=== PATIENT | male | born 1950 | race Caucasian/White ===

== ENCOUNTER 2016-11-10 17:53 | Inpatient (IN) | payer OTHER ==
[~2016-11-10] VITALS: Ht 172.7 cm; Wt 104.3 kg
[2016-11-10] MEDS ORDERED: IPRATRPIUM/ALBUTEROL 0.5/2.5MG 3 ML NEBU. NEB ONE (18:15)
[2016-11-10] MEDS ORDERED: methylPREDNISolone SOD SUCC PF 125 MG/2 ML VIAL. IV ONE (18:15)
[2016-11-10 18:22] LABS: BASO % 0 % (0-3); EOS % 3 % (0-3); HEMATOCRIT 49.5 % (39.0-53.0); HEMOGLOBIN 15.6 g/dL (13.0-17.5); LYMPH # 2.3 x10^3/uL (1.0-4.8); LYMPH % 19 % (24-48); MEAN CORPUSCULAR HEMOGLOBIN 26 pg (25-35); MEAN CORPUSCULAR HGB CONC 32 g/dL (31-37); MEAN CORPUSCULAR VOLUME 84 fL (79-100); MONO % 8 % (0-9); NEUT % 69 % (31-73); PLATELET COUNT 218 x10^3/uL (140-400); RED BLOOD COUNT 5.91 x10^6/uL (4.30-5.70); RED CELL DISTRIBUTION WIDTH 15.3 % (11.5-14.5)
[2016-11-10 18:30] LABS: CALCIUM 8.9 mg/dL (8.5-10.1); CREATININE 1.2 mg/dL (0.7-1.3); GFR 60.6; POTASSIUM 4.8 mmol/L (3.5-5.1)
[2016-11-10 18:36] LABS: ALBUMIN 3.9 g/dL (3.4-5.0); ALBUMIN/GLOBULIN RATIO 0.9 (1.0-1.7); TOTAL BILIRUBIN 0.5 mg/dL (0.2-1.0); TOTAL PROTEIN 8.4 g/dL (6.4-8.2)
[2016-11-10 18:55] LABS: OBC FLU VALID
[2016-11-10] MEDS ORDERED: ASPIRIN 325 MG TABLET PO ONE (19:15)
[2016-11-10] MEDS ORDERED: FUROSEMIDE 20 MG/2 ML VIAL IVP ONE (19:15)
[2016-11-10] MEDS ORDERED: FENTANYL PF 100 MCG/2 ML VIAL. IV PRN (19:15)
[2016-11-10] MEDS ORDERED: NITROGLYCERIN SUBLINGUAL 0.4 MG BOTTLE OF 25. SL PRN ×2 (19:15→20:30)
[2016-11-10] MEDS ORDERED: ONDANSETRON PF 4 MG/2 ML VIAL. IV PRN (20:30)
[2016-11-10] MEDS ORDERED: DEXTROSE 50% 25 GM / 50ML DISP.SYRIN. IV PRN (20:30)
[2016-11-10] MEDS ORDERED: ACETAMINOPHEN 325 MG TABLET. PO PRN (20:30)
[2016-11-10] MEDS ORDERED: MORPHINE SULFATE 4 MG/ML DISP.SYRIN. IV PRN (20:30)
[2016-11-10 20:34] LABS: HCO3 ABG 27 mmol/L (21-28); PCO2 ABG 48 mmHg (35-46); PH ABG 7.36 (7.35-7.45); PO2 ABG 135 mmHg (65-108); SAT O2 ABG 98 % (92-99)
[2016-11-10] MEDS ORDERED: LEVOFLOXACIN PER PHARMACY MC PRN (20:45)
[2016-11-10] MEDS: IPRATRPIUM/ALBUTEROL 0.5/2.5MG 3 ML NEBU. NEB SCH (21:16)
--- NOTE | 2016-11-10 22:01 | ED.ADGEN ---
Past Medical History Past Medical History: Asthma, COPD, Diabetes-Type II, High Cholesterol, Hypertension Past Surgical History: Other Additional Past Surgical Histo: Right shoulder Alcohol Use: None Drug Use: None Adult General Chief Complaint Chief Complaint: SHORTNESS OF BREATH HPI HPI Patient is a 66 year old man, history of COPD, type 2 diabetes mellitus, hypertension, who presents to the emergency department in respiratory failure via EMS. Per EMS report, patient with oxygen saturations in the 70s upon arrival , patient was placed on a nonrebreather, and received a nebulizer treatment en route to the ED, with improvement of his oxygen saturation, although his work of breathing remains significantly increased. Patient states that he was seen his primary care provider's office this morning, and received a prescription for steroids. Oxygen saturation had been in the 90s at the time, he states that he has worsening symptoms that were triggered by the cold weather, and began feeling progressively worse throughout the afternoon into the evening. Patient is not previously required intubation or BiPAP usage. No cough or rhinorrhea. He denies any chest pain, any nausea or vomiting, any swelling extremities, history of DVT or PE, any recent travel or surgery, any weakness numbness or tingling, any drugs alcohol or cigarettes. Patient's oxygen saturation is ED 81 % on 10 L nasal cannula upon arrival to the emergency department when DuoNeb completed, transitioned to facemask and then to BiPAP emergently in the ED. Review of Systems Review of Systems Constitutional: Denies fever or chills. [] Eyes: Denies change in visual acuity. [] HENT: Denies nasal congestion or sore throat. [] Respiratory: Nonproductive cough, shortness of breath worsening over the past day. Cardiovascular: Denies chest pain or edema. [] GI: Denies abdominal pain, nausea, vomiting, bloody stools or diarrhea. [] : Denies dysuria. [] Musculoskeletal: Denies back pain or joint pain. [] Integument: Denies rash. [] Neurologic: Denies headache, focal weakness or sensory changes. [] Endocrine: Denies polyuria or polydipsia. [] Lymphatic: Denies swollen glands. [] Psychiatric: Denies depression or anxiety. [] Current Medications Current Medications Current Medications Medications (Trade) Dose Ordered Sig/Jenny Start Time Stop Time Status Last Admin Dose Admin Albuterol/ Ipratropium (Duoneb) 3 ml 1X ONCE 11/10/16 18:15 11/10/16 18:16 DC 11/10/16 18:13 3 ML Methylprednisolone Sodium Succinate (Solu-Medrol 125mg Vial) 125 mg 1X ONCE 11/10/16 18:15 11/10/16 18:16 DC 11/10/16 18:23 125 MG Allergies Allergies Allergies Coded Allergies Type Severity Reaction Last Updated Verified No Known Drug Allergies 06/01/14 No Physical Exam Physical Exam Constitutional: Well developed, well nourished, in severe respiratory distress, with impending respiratory failure. HENT: Normocephalic, atraumatic, bilateral external ears normal, oropharynx moist, no oral exudates, nose normal. [] Eyes: PERRLA, EOMI, conjunctiva normal, no discharge. [] Neck: Normal range of motion, no tenderness, supple, no stridor. [] Cardiovascular: Tachycardic, S1, S2, soft heart sounds, no rubs or gallops. Lungs & Thorax: Patient with very poor air movement, a few mild expiratory wheezes identified. In pending respiratory failure. Abdomen: Bowel sounds normal, soft, obese, no rebound, rigidity, no guarding no tenderness, no masses, no pulsatile masses. [] Skin: Warm, dry, no erythema, no rash. [] Back: No tenderness, no CVA tenderness. [] Extremities: No tenderness, no cyanosis, no clubbing, ROM intact, no edema. [ Negative Homans sign.] Neurologic: Alert and oriented X 3, normal motor function, normal sensory function, no focal deficits noted. [] Psychologic: Patient anxious, judgement normal, mood normal. [] Current Patient Data Vital Signs Vital Signs Date Time Temp Pulse Resp B/P Pulse Ox O2 Delivery O2 Flow Rate FiO2 11/10/16 19:09 78 162/71 100 BiPAP/CPAP 11/10/16 17:53 26 Lab Values Laboratory Tests Test 11/10/16 18:00 11/10/16 18:20 White Blood Count 12.0x10^3/uL (4.0-11.0) H Red Blood Count 5.91x10^6/uL (4.30-5.70) H Hemoglobin 15.6g/dL (13.0-17.5) Hematocrit 49.5% (39.0-53.0) Mean Corpuscular Volume 84fL (79-100) Mean Corpuscular Hemoglobin 26pg (25-35) Mean Corpuscular Hemoglobin Concent 32g/dL (31-37) Red Cell Distribution Width 15.3% (11.5-14.5) H Platelet Count 218x10^3/uL (140-400) Neutrophils (%) (Auto) 69% (31-73) Lymphocytes (%) (Auto) 19% (24-48) L Monocytes (%) (Auto) 8% (0-9) Eosinophils (%) (Auto) 3% (0-3) Basophils (%) (Auto) 0% (0-3) Neutrophils # (Auto) 8.4x10^3uL (1.8-7.7) H Lymphocytes # (Auto) 2.3x10^3/uL (1.0-4.8) Monocytes # (Auto) 0.9x10^3/uL (0.0-1.1) Eosinophils # (Auto) 0.4x10^3/uL (0.0-0.7) Basophils # (Auto) 0.0x10^3/uL (0.0-0.2) Sodium Level 145mmol/L (136-145) Potassium Level 4.8mmol/L (3.5-5.1) Chloride Level 106mmol/L (98-107) Carbon Dioxide Level 32mmol/L (21-32) Anion Gap 7 (6-14) Blood Urea Nitrogen 19mg/dL (8-26) Creatinine 1.2mg/dL (0.7-1.3) Estimated GFR (Cockcroft-Gault) 60.6 BUN/Creatinine Ratio 16 (6-20) Glucose Level 142mg/dL (70-99) H Calcium Level 8.9mg/dL (8.5-10.1) Total Bilirubin 0.5mg/dL (0.2-1.0) Aspartate Amino Transferase (AST) 38U/L (15-37) H Alanine Aminotransferase (ALT) 56U/L (16-63) Alkaline Phosphatase 89U/L (46-116) Troponin I Quantitative 0.060ng/mL (0.000-0.055) TL-Vrw-O-Type Natriuretic Peptide 1132pg/mL (0-124) H Total Protein 8.4g/dL (6.4-8.2) H Albumin 3.9g/dL (3.4-5.0) Albumin/Globulin Ratio 0.9 (1.0-1.7) L Influenza Type A Antigen Negative (NEGATIVE) Influenza Type B Antigen Negative (NEGATIVE) Laboratory Tests 11/10/16 18:00 Laboratory Tests 11/10/16 18:00 EKG EKG EC: Sinus rhythm, heart rate 96 beats minute, ECG evaluation limited secondary to baseline artifact, patient with occasional PVCs noted, left axis deviation, with contour abnormality noted in the inferior and lateral leads, abnormal ECG, QTC of 459, MD of 200, QRS of 108, does not meet STEMI criteria. As interpreted by me. EC: Sinus rhythm, occasional APCs noted, with left axis deviation, contour normality is noted in the anterior septal and lateral leads, QTc of 464 , MD 184, QRS of 116, abnormal ECG, does not meet STEMI criteria. As interpreted by me.] Radiology/Procedures Radiology/Procedures Chest x-ray: One view: Patient with evidence of cephalization and fluid in the lung fissure, consistent with congestive heart failure with pulmonary edema, patient with flattening of the diaphragms consistent with COPD. No infiltrates identified. No pneumothorax. No bony abnormalities identified. As interpreted by me. [] Course & Med Decision Making Course & Med Decision Making Pertinent Labs and Imaging studies reviewed. (See chart for details) Patient's respiratory status improved on BiPAP, patient much more comfortable, breathing with the machine. Chest x-ray concerning for congestive heart failure , COPD. Patient received DuoNeb's, steroids, and after discussion with patient, Lasix in the emergency department. Patient has no known history of congestive heart failure. Troponin also noted to be slightly elevated. ECG, laboratory and imaging studies along with history and examination reviewed with Dr. Price of cardiology, who recommends serial troponins, no indication for anticoagulation at this time, patient has already refused aspirin in the ED stating he has no chest pain, obtaining echocardiogram, as patient's presentation is consistent with a respiratory cause as opposed to an occlusive cardiac cause. We'll also repeat ECG in the morning. Did discuss this with patient, initially was declining to stay, however due to the critical nature of his illness, eventually agreed to stay, and to receive evaluation with pulmonary and cardiology, along with BiPAP and additional treatment. Patient tolerating BiPAP without issue as stated, oxygen saturations in the mid 90s, initial ABG reveals support is adequate. Findings as above discussed with Dr. Barrett, the patient's primary care provider, who confirms the patient's report that he was seen in the office this morning, and at that time had no difficulty during ambulatory trial, with adequate oxygen saturation and was discharged with prednisone. Patient was accepted to his service as a full admission to the cardiac telemetry floor, with consultation and continued evaluation as stated above, will also initiate antibiotics for additional coverage. Patient started on Levaquin without issue in the ED. Patient remained stable during his ED course with interventions as above, transfer to the floor without issue with bridge orders entered per discussion. Dragon Disclaimer Dragon Disclaimer This electronic medical record was generated, in whole or in part, using a voice recognition dictation system. Critical Care Time Critical care time was 25 minutes exclusive of procedures. Departure Impression: Primary Impression: Respiratory failure Additional Impressions: CHF (congestive heart failure) COPD (chronic obstructive pulmonary disease) Disposition: ADMITTED INPATIENT Admitting Physician: Stan Barrett Condition: IMPROVED Problem Qualifiers EBONY BROUSSARD DO Nov 10, 2016 22:01
[2016-11-10] MEDS ORDERED: VENTOLIN HFA18 GM INH (22:29)
[2016-11-10] MEDS ORDERED: INSU100I17 SQ (22:29)
[2016-11-10] MEDS ORDERED: TIOT4MIS3 IH (22:29)
[2016-11-10] MEDS ORDERED: FLUT12AE IH (22:29)
[2016-11-10] MEDS ORDERED: INSU100V13 SQ (22:29)
[2016-11-10] MEDS ORDERED: LOSA25TA4 PO (22:29)
--- NOTE | 2016-11-10 23:33 | ACF ---
Admission Forms Criteria RESPIRATORY FAILURE [facility] Clinical Indications for Admission to Inpatient Care (Place 'X' for any and all applicable criteria): Hospital admission is needed for appropriate care of the patient because of acute respiratory failure or insufficiency as indicated by ANY ONE of the following(1)(2)(3)(4)(5)(6)(7)(8): [X]I. Mechanical ventilation needed (acute invasive or noninvasive) [ ]II. Severe ventilation deficit as indicated by ANY ONE of the following (9) [ ]a) Respiratory acidosis (pH less than 7.32 and partial pressure of carbon dioxide greater than 40 mm Hg (5.3 kPa)) [ ]b) Partial pressure of carbon dioxide greater than 44 mm Hg (5.9 kPa ) (new) [ ]c) Airflow measurements less than 25% of predicted (eg, peak expiratory flow rate less than 100 L/minute) [ ]d) Forced vital capacity less than 15 mL/kg of ideal body weight, or 50% decrease in vital capacity from baseline [ ]III. Noncardiac pulmonary edema not resolving with rapid emergency treatment (8) [ ]IV. Severe respiratory distress as indicated by ANY ONE of the following: [ ]a) Severe tachypnea (respiratory rate greater than 30, greater than 45 for 6-month-old, greater than 60 for ) [ ]b) Severe hypoxemia (partial pressure of oxygen less than 50 mm Hg ( 6.7 kPa) on greater than 50% oxygen or partial pressure of oxygen to FIO2 ratio less than 200) [ ]c) Mental status deterioration from respiratory disease [ ]V. Airway obstruction or inadequate protection [A](10)(11) The original [employer] content created by [employer] has been revised. The portions of the content which have been revised are identified through the use of italic text or in bold, and [employer] has neither reviewed nor approved the modified material. All other unmodified content is copyright [employer]. Please see references footnoted in the original [employer] edition 2016 Admission Criteria Met?: Yes VERONIQUE ACOSTA Nov 10, 2016 23:33
[2016-11-10 23:35] VITALS: BP 129/54
[2016-11-11] VITALS (7 sets, daily range): BP systolic 96–144; BP diastolic 52–72
[2016-11-11] MEDS: INSULIN DETEMIR 300 UNITS/3 ML INSULN.PEN. SQ SCH ×2 (00:40→21:57)
--- NOTE | 2016-11-11 06:13 | EKG ---
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 OLD ANTEROSEPTAL WALL mi. PREMATURE VENTRICULAR CONTRACTIONS. MISSING LEAD V 4. Electronically Signed On 11-12-2016 21:39:05 CDT by Luma Moreno
--- NOTE | 2016-11-11 06:18 | EKG ---
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
[2016-11-11 06:36] LABS: BASO % 0 % (0-3); EOS % 0 % (0-3); HEMATOCRIT 46.5 % (39.0-53.0); HEMOGLOBIN 14.8 g/dL (13.0-17.5); LYMPH # 0.6 x10^3/uL (1.0-4.8); LYMPH % 5 % (24-48); MEAN CORPUSCULAR HEMOGLOBIN 26 pg (25-35); MEAN CORPUSCULAR HGB CONC 32 g/dL (31-37); MEAN CORPUSCULAR VOLUME 82 fL (79-100); MONO % 2 % (0-9); NEUT % 93 % (31-73); PLATELET COUNT 191 x10^3/uL (140-400); RED BLOOD COUNT 5.68 x10^6/uL (4.30-5.70); RED CELL DISTRIBUTION WIDTH 15.2 % (11.5-14.5); WHITE BLOOD COUNT 12.8 x10^3/uL (4.0-11.0)
[2016-11-11 06:53] LABS: CREATININE 1.3 mg/dL (0.7-1.3); GFR 55.2; POTASSIUM 5.3 mmol/L (3.5-5.1)
[2016-11-11] MEDS: IPRATRPIUM/ALBUTEROL 0.5/2.5MG 3 ML NEBU. NEB SCH ×4 (07:34→19:26)
[2016-11-11] MEDS: BUDESONIDE 0.5 MG/2 ML NEBU NEB SCH ×2 (07:34→19:26)
--- NOTE | 2016-11-11 08:54 | RAD ---
Indication: Dyspnea today. Technique: Upright portable chest radiograph was obtained. Comparison is from January 11, 2015. Findings: There is streaky opacity in the left upper and lower lung morales as well as the right lower lung field. This is a change from prior. There is no pleural effusion. The heart is not enlarged. There are degenerative changes in the spine. Leads overlie the patient. Impression: New bilateral infiltrates may represent multifocal pneumonia or mild CHF.
[2016-11-11] MEDS ORDERED: NON FORMULARY ITEM (Albuterol Sulfate (Ventolin Hfa Inhaler) 2 PUFF) INH SCH (09:00)
[2016-11-11] MEDS ORDERED: NON FORMULARY ITEM (Tiotropium Br/Olodaterol HCl (Stiolto Respimat Inhal Spray) 4 GM) IH SCH (09:00)
[2016-11-11] MEDS: LOSARTAN POTASSIUM 50 MG TABLET. PO SCH (09:00)
[2016-11-11] MEDS ORDERED: NON FORMULARY ITEM (Fluticasone Propionate (Flovent 110MCG Hfa) 2 PUFF) IH SCH (09:00)
[2016-11-11] MEDS: INSULIN ASPART 300 UNITS/3 ML INSULN.PEN SQ SCH ×5 (09:18→17:40)
[2016-11-11] MEDS ORDERED: DOCUSATE SODIUM 100 MG CAPSULE PO PRN (10:00)
--- NOTE | 2016-11-11 10:38 | PDOC2 ---
CONSULT Date of Consult Date of Consult DATE: 11/11/16 TIME: 10:30 Reason for Consult Reason for Consult: Elevated troponins Referring Physician Referring Physician: Dr. Barrett Identification/Chief Complaint Chief Complaint SOB History of Present Illness Reason for Visit: Pt presents to ED with severe SOB. He reports this began with the changing weather and worsened to the point of needing to come to the ED. He saw his PCP before coming to the hospital and was given a prescription for Prednisone but was not able to fill it. He denies ever feeling any chest pain or palpitations. Reports SOB has greatly improved Current Problem List Problem List Problems Medical Problems: (1) CHF (congestive heart failure) Status: Acute (2) COPD (chronic obstructive pulmonary disease) Status: Acute (3) Respiratory failure Status: Acute Current Medications Current Medications Current Medications Albuterol/ Ipratropium (Duoneb) 3 ml 1X ONCE NEB Last administered on 18:13; Start 11/10/16 at 18:15; Stop 11/10/16 at 18:16; Status DC Methylprednisolone Sodium Succinate (Solu-Medrol 125mg Vial) 125 mg 1X ONCE IV Last administered on 11/10/16 18:23; Start 11/10/16 at 18:15; Stop 11/10/16 at 18:16; Status DC Fentanyl Citrate (Fentanyl 2ml Vial) 25 mcg PRN Q15MIN PRN IV PAIN GREATER THAN 3/10; Start 11/10/16 at 19:15; Stop 11/11/16 at 19:14 Nitroglycerin (Nitrostat) 0.4 mg PRN Q5MIN PRN SL CHEST PAIN; Start 11/10/16 at 19:15 Furosemide (Lasix) 20 mg 1X ONCE IVP Last administered on 11/10/16 19:27; Start 11/10/16 at 19:15; Stop 11/10/16 at 19:16; Status DC Aspirin (Chelsey Aspirin) 325 mg 1X ONCE PO ; Start 11/10/16 at 19:15; Stop 11/10 at 19:16; Status DC Ondansetron HCl (Zofran) 4 mg PRN Q8HRS PRN IV NAUSEA/VOMITING; Start 11/10/16 at 20:30; Stop 11/11/16 at 20:29 Morphine Sulfate 4 mg PRN Q2HR PRN IV PAIN; Start 11/10/16 at 20:30; Stop 11/11 at 20:29 Acetaminophen (Tylenol) 650 mg PRN Q4HRS PRN PO FEVER; Start 11/10/16 at 20:30 ; Stop 11/11/16 at 20:29 Nitroglycerin (Nitrostat) 0.4 mg PRN Q5MIN PRN SL CHEST PAIN; Start 11/10/16 at 20:30; Stop 11/10/16 at 20:31; Status DC Albuterol/ Ipratropium (Duoneb) 3 ml RTQID NEB Last administered on 11/11/16 07:34; Start 11/10/16 at 20:30; Stop 11/12/16 at 20:29 Insulin Aspart (Novolog) 0-5 UNITS TIDWMEALS SQ Last administered on 11/11/16 09:18; Start 11/11/16 at 08:00 Dextrose 12.5 gm PRN Q15MIN PRN IV SEE COMMENTS; Start 11/10/16 at 20:30 Levofloxacin/ Dextrose 1 each 1 each PRN DAILY PRN MC SEE COMMENTS; Start 11/10 at 20:45 Levofloxacin/ Dextrose (LEVAQUIN 750mg PREMIX) 150 ml @ 100 mls/hr Q24H IV Last administered on 11/11/16 00:08; Start 11/10/16 at 21:00 Losartan Potassium (Cozaar) 100 mg DAILY PO ; Start 11/11/16 at 09:00 Non-Formulary Medication 2 puff QID INH FOR ASTHMA; Start 11/11/16 at 09:00; Status UNV Non-Formulary Medication 2 puff BID IH ; Start 11/11/16 at 09:00; Status UNV Insulin Detemir (Levemir) 70 units QHS SQ Last administered on 11/11/16 00:40 ; Start 11/11/16 at 00:30 Non-Formulary Medication 4 gm DAILY IH ; Start 11/11/16 at 09:00; Status UNV Budesonide (Pulmicort) 0.5 mg RTBID NEB Last administered on 11/11/16 07:34; Start 11/11/16 at 08:00 Insulin Aspart (Novolog) 30 units TIDAC SQ ; Start 11/11/16 at 11:30 Docusate Sodium (Colace) 100 mg PRN DAILY PRN PO CONSTIPATION; Start 11/11/16 at 10:00 Active Scripts Active Reported Stiolto Respimat Inhal [place] (Tiotropium Br/Olodaterol HCl) 4 Gm Mist.inhal 4 Gm IH DAILY Novolog Flexpen (Insulin Aspart) 100 Unit/1 Ml Insuln.pen 1 Unit SQ Ventolin Hfa Inhaler (Albuterol Sulfate) 18 Gm Hfa.aer.ad 2 Puff INH QID Flovent 110MCG Hfa (Fluticasone Propionate) 12 Gm Aer.w.adap 2 Puff IH BID Losartan Potassium 25 Mg Tablet 100 Mg PO DAILY Levemir (Insulin Detemir) 100 Unit/1 Ml Vial 70 Unit SQ QHS Allergies Allergies: Coded Allergies: No Known Drug Allergies (Unverified , 06/01/14) Physical Exam General: Alert, Cooperative, No acute distress Lungs: Clear to auscultation, Normal air movement Heart: Normal S1, Normal S2, No murmurs Extremities: No clubbing, No cyanosis, Normal pulses Vitals VITALS Vital Signs Date Time Temp Pulse Resp B/P Pulse Ox O2 Delivery O2 Flow Rate FiO2 11/11/16 09:00 87 144/64 11/11/16 07:40 Room Air 11/11/16 07:35 96 11/11/16 07:00 97.6 20 97.6 11/11/16 04:19 14.0 Labs Labs Laboratory Tests Test 11/10/16 18:00 11/10/16 18:20 11/10/16 20:30 11/10/16 22:05 White Blood Count 12.0x10^3/uL (4.0-11.0) Red Blood Count 5.91x10^6/uL (4.30-5.70) Hemoglobin 15.6g/dL (13.0-17.5) Hematocrit 49.5% (39.0-53.0) Mean Corpuscular Volume 84fL (79-100) Mean Corpuscular Hemoglobin 26pg (25-35) Mean Corpuscular Hemoglobin Concent 32g/dL (31-37) Red Cell Distribution Width 15.3% (11.5-14.5) Platelet Count 218x10^3/uL (140-400) Neutrophils (%) (Auto) 69% (31-73) Lymphocytes (%) (Auto) 19% (24-48) Monocytes (%) (Auto) 8% (0-9) Eosinophils (%) (Auto) 3% (0-3) Basophils (%) (Auto) 0% (0-3) Neutrophils # (Auto) 8.4x10^3uL (1.8-7.7) Lymphocytes # (Auto) 2.3x10^3/uL (1.0-4.8) Monocytes # (Auto) 0.9x10^3/uL (0.0-1.1) Eosinophils # (Auto) 0.4x10^3/uL (0.0-0.7) Basophils # (Auto) 0.0x10^3/uL (0.0-0.2) Sodium Level 145mmol/L (136-145) Potassium Level 4.8mmol/L (3.5-5.1) Chloride Level 106mmol/L (98-107) Carbon Dioxide Level 32mmol/L (21-32) Anion Gap 7 (6-14) Blood Urea Nitrogen 19mg/dL (8-26) Creatinine 1.2mg/dL (0.7-1.3) Estimated GFR (Cockcroft-Gault) 60.6 BUN/Creatinine Ratio 16 (6-20) Glucose Level 142mg/dL (70-99) Calcium Level 8.9mg/dL (8.5-10.1) Total Bilirubin 0.5mg/dL (0.2-1.0) Aspartate Amino Transf (AST/SGOT) 38U/L (15-37) Alanine Aminotransferase (ALT/SGPT) 56U/L (16-63) Alkaline Phosphatase 89U/L (46-116) Troponin I Quantitative 0.060ng/mL (0.000-0.055) QP-Com-N-Type Natriuretic Peptide 1132pg/mL (0-124) Total Protein 8.4g/dL (6.4-8.2) Albumin 3.9g/dL (3.4-5.0) Albumin/Globulin Ratio 0.9 (1.0-1.7) Influenza Type A Antigen Negative (NEGATIVE) Influenza Type B Antigen Negative (NEGATIVE) O2 Saturation 98% (92-99) Arterial Blood pH 7.36 (7.35-7.45) Arterial Blood pCO2 at Patient Temp 48mmHg (35-46) Arterial Blood pO2 at Patient Temp 135mmHg (65-108) Arterial Blood HCO3 27mmol/L (21-28) Arterial Blood Base Excess 1mmol/L (-3-3) FiO2 40.0 Glucose (Fingerstick) 210mg/dL (70-99) Test 11/11/16 00:15 11/11/16 06:20 11/11/16 07:55 Troponin I Quantitative 0.538ng/mL (0.000-0.055) 0.482ng/mL (0.000-0.055) White Blood Count 12.8x10^3/uL (4.0-11.0) Red Blood Count 5.68x10^6/uL (4.30-5.70) Hemoglobin 14.8g/dL (13.0-17.5) Hematocrit 46.5% (39.0-53.0) Mean Corpuscular Volume 82fL (79-100) Mean Corpuscular Hemoglobin 26pg (25-35) Mean Corpuscular Hemoglobin Concent 32g/dL (31-37) Red Cell Distribution Width 15.2% (11.5-14.5) Platelet Count 191x10^3/uL (140-400) Neutrophils (%) (Auto) 93% (31-73) Lymphocytes (%) (Auto) 5% (24-48) Monocytes (%) (Auto) 2% (0-9) Eosinophils (%) (Auto) 0% (0-3) Basophils (%) (Auto) 0% (0-3) Neutrophils # (Auto) 11.9x10^3uL (1.8-7.7) Lymphocytes # (Auto) 0.6x10^3/uL (1.0-4.8) Monocytes # (Auto) 0.3x10^3/uL (0.0-1.1) Eosinophils # (Auto) 0.0x10^3/uL (0.0-0.7) Basophils # (Auto) 0.0x10^3/uL (0.0-0.2) Sodium Level 138mmol/L (136-145) Potassium Level 5.3mmol/L (3.5-5.1) Chloride Level 100mmol/L (98-107) Carbon Dioxide Level 29mmol/L (21-32) Anion Gap 9 (6-14) Blood Urea Nitrogen 23mg/dL (8-26) Creatinine 1.3mg/dL (0.7-1.3) Estimated GFR (Cockcroft-Gault) 55.2 Glucose Level 271mg/dL (70-99) Calcium Level 9.0mg/dL (8.5-10.1) Glucose (Fingerstick) 277mg/dL (70-99) Laboratory Tests Test 11/10/16 18:00 11/10/16 18:20 11/10/16 20:30 11/10/16 22:05 White Blood Count 12.0x10^3/uL (4.0-11.0) Red Blood Count 5.91x10^6/uL (4.30-5.70) Hemoglobin 15.6g/dL (13.0-17.5) Hematocrit 49.5% (39.0-53.0) Mean Corpuscular Volume 84fL (79-100) Mean Corpuscular Hemoglobin 26pg (25-35) Mean Corpuscular Hemoglobin Concent 32g/dL (31-37) Red Cell Distribution Width 15.3% (11.5-14.5) Platelet Count 218x10^3/uL (140-400) Neutrophils (%) (Auto) 69% (31-73) Lymphocytes (%) (Auto) 19% (24-48) Monocytes (%) (Auto) 8% (0-9) Eosinophils (%) (Auto) 3% (0-3) Basophils (%) (Auto) 0% (0-3) Neutrophils # (Auto) 8.4x10^3uL (1.8-7.7) Lymphocytes # (Auto) 2.3x10^3/uL (1.0-4.8) Monocytes # (Auto) 0.9x10^3/uL (0.0-1.1) Eosinophils # (Auto) 0.4x10^3/uL (0.0-0.7) Basophils # (Auto) 0.0x10^3/uL (0.0-0.2) Sodium Level 145mmol/L (136-145) Potassium Level 4.8mmol/L (3.5-5.1) Chloride Level 106mmol/L (98-107) Carbon Dioxide Level 32mmol/L (21-32) Anion Gap 7 (6-14) Blood Urea Nitrogen 19mg/dL (8-26) Creatinine 1.2mg/dL (0.7-1.3) Estimated GFR (Cockcroft-Gault) 60.6 BUN/Creatinine Ratio 16 (6-20) Glucose Level 142mg/dL (70-99) Calcium Level 8.9mg/dL (8.5-10.1) Total Bilirubin 0.5mg/dL (0.2-1.0) Aspartate Amino Transf (AST/SGOT) 38U/L (15-37) Alanine Aminotransferase (ALT/SGPT) 56U/L (16-63) Alkaline Phosphatase 89U/L (46-116) Troponin I Quantitative 0.060ng/mL (0.000-0.055) YI-Hjv-Y-Type Natriuretic Peptide 1132pg/mL (0-124) Total Protein 8.4g/dL (6.4-8.2) Albumin 3.9g/dL (3.4-5.0) Albumin/Globulin Ratio 0.9 (1.0-1.7) Influenza Type A Antigen Negative (NEGATIVE) Influenza Type B Antigen Negative (NEGATIVE) O2 Saturation 98% (92-99) Arterial Blood pH 7.36 (7.35-7.45) Arterial Blood pCO2 at Patient Temp 48mmHg (35-46) Arterial Blood pO2 at Patient Temp 135mmHg (65-108) Arterial Blood HCO3 27mmol/L (21-28) Arterial Blood Base Excess 1mmol/L (-3-3) FiO2 40.0 Glucose (Fingerstick) 210mg/dL (70-99) Test 11/11/16 00:15 11/11/16 06:20 11/11/16 07:55 Troponin I Quantitative 0.538ng/mL (0.000-0.055) 0.482ng/mL (0.000-0.055) White Blood Count 12.8x10^3/uL (4.0-11.0) Red Blood Count 5.68x10^6/uL (4.30-5.70) Hemoglobin 14.8g/dL (13.0-17.5) Hematocrit 46.5% (39.0-53.0) Mean Corpuscular Volume 82fL (79-100) Mean Corpuscular Hemoglobin 26pg (25-35) Mean Corpuscular Hemoglobin Concent 32g/dL (31-37) Red Cell Distribution Width 15.2% (11.5-14.5) Platelet Count 191x10^3/uL (140-400) Neutrophils (%) (Auto) 93% (31-73) Lymphocytes (%) (Auto) 5% (24-48) Monocytes (%) (Auto) 2% (0-9) Eosinophils (%) (Auto) 0% (0-3) Basophils (%) (Auto) 0% (0-3) Neutrophils # (Auto) 11.9x10^3uL (1.8-7.7) Lymphocytes # (Auto) 0.6x10^3/uL (1.0-4.8) Monocytes # (Auto) 0.3x10^3/uL (0.0-1.1) Eosinophils # (Auto) 0.0x10^3/uL (0.0-0.7) Basophils # (Auto) 0.0x10^3/uL (0.0-0.2) Sodium Level 138mmol/L (136-145) Potassium Level 5.3mmol/L (3.5-5.1) Chloride Level 100mmol/L (98-107) Carbon Dioxide Level 29mmol/L (21-32) Anion Gap 9 (6-14) Blood Urea Nitrogen 23mg/dL (8-26) Creatinine 1.3mg/dL (0.7-1.3) Estimated GFR (Cockcroft-Gault) 55.2 Glucose Level 271mg/dL (70-99) Calcium Level 9.0mg/dL (8.5-10.1) Glucose (Fingerstick) 277mg/dL (70-99) Assessment/Plan Assessment/Plan Pt experienced severe SOB without c/o chest pain, ECG showed no evidence of Acute [place] with tachycardia. Recommend echocardiogram for further workup due to elevated troponin. To me the elevated troponin is probably secondary to ischemia from profound hypoxia when he came in. Thank you for asking me to participate in the care of this pt. ELLE WEBER MD Nov 11, 2016 10:38
--- NOTE | 2016-11-11 10:58 | PDOC ---
PULMONARY PROGRESS NOTES Vitals Vital Signs Date Time Temp Pulse Resp B/P Pulse Ox O2 Delivery O2 Flow Rate FiO2 11/11/16 09:00 87 144/64 11/11/16 07:40 Room Air 11/11/16 07:35 96 11/11/16 07:00 97.6 20 97.6 11/11/16 04:19 14.0 Labs Laboratory Tests Test 11/10/16 18:00 11/10/16 18:20 11/10/16 20:30 11/10/16 22:05 White Blood Count 12.0x10^3/uL (4.0-11.0) Red Blood Count 5.91x10^6/uL (4.30-5.70) Hemoglobin 15.6g/dL (13.0-17.5) Hematocrit 49.5% (39.0-53.0) Mean Corpuscular Volume 84fL (79-100) Mean Corpuscular Hemoglobin 26pg (25-35) Mean Corpuscular Hemoglobin Concent 32g/dL (31-37) Red Cell Distribution Width 15.3% (11.5-14.5) Platelet Count 218x10^3/uL (140-400) Neutrophils (%) (Auto) 69% (31-73) Lymphocytes (%) (Auto) 19% (24-48) Monocytes (%) (Auto) 8% (0-9) Eosinophils (%) (Auto) 3% (0-3) Basophils (%) (Auto) 0% (0-3) Neutrophils # (Auto) 8.4x10^3uL (1.8-7.7) Lymphocytes # (Auto) 2.3x10^3/uL (1.0-4.8) Monocytes # (Auto) 0.9x10^3/uL (0.0-1.1) Eosinophils # (Auto) 0.4x10^3/uL (0.0-0.7) Basophils # (Auto) 0.0x10^3/uL (0.0-0.2) Sodium Level 145mmol/L (136-145) Potassium Level 4.8mmol/L (3.5-5.1) Chloride Level 106mmol/L (98-107) Carbon Dioxide Level 32mmol/L (21-32) Anion Gap 7 (6-14) Blood Urea Nitrogen 19mg/dL (8-26) Creatinine 1.2mg/dL (0.7-1.3) Estimated GFR (Cockcroft-Gault) 60.6 BUN/Creatinine Ratio 16 (6-20) Glucose Level 142mg/dL (70-99) Calcium Level 8.9mg/dL (8.5-10.1) Total Bilirubin 0.5mg/dL (0.2-1.0) Aspartate Amino Transf (AST/SGOT) 38U/L (15-37) Alanine Aminotransferase (ALT/SGPT) 56U/L (16-63) Alkaline Phosphatase 89U/L (46-116) Troponin I Quantitative 0.060ng/mL (0.000-0.055) OW-Ghp-Z-Type Natriuretic Peptide 1132pg/mL (0-124) Total Protein 8.4g/dL (6.4-8.2) Albumin 3.9g/dL (3.4-5.0) Albumin/Globulin Ratio 0.9 (1.0-1.7) Influenza Type A Antigen Negative (NEGATIVE) Influenza Type B Antigen Negative (NEGATIVE) O2 Saturation 98% (92-99) Arterial Blood pH 7.36 (7.35-7.45) Arterial Blood pCO2 at Patient Temp 48mmHg (35-46) Arterial Blood pO2 at Patient Temp 135mmHg (65-108) Arterial Blood HCO3 27mmol/L (21-28) Arterial Blood Base Excess 1mmol/L (-3-3) FiO2 40.0 Glucose (Fingerstick) 210mg/dL (70-99) Test 11/11/16 00:15 11/11/16 06:20 11/11/16 07:55 Troponin I Quantitative 0.538ng/mL (0.000-0.055) 0.482ng/mL (0.000-0.055) White Blood Count 12.8x10^3/uL (4.0-11.0) Red Blood Count 5.68x10^6/uL (4.30-5.70) Hemoglobin 14.8g/dL (13.0-17.5) Hematocrit 46.5% (39.0-53.0) Mean Corpuscular Volume 82fL (79-100) Mean Corpuscular Hemoglobin 26pg (25-35) Mean Corpuscular Hemoglobin Concent 32g/dL (31-37) Red Cell Distribution Width 15.2% (11.5-14.5) Platelet Count 191x10^3/uL (140-400) Neutrophils (%) (Auto) 93% (31-73) Lymphocytes (%) (Auto) 5% (24-48) Monocytes (%) (Auto) 2% (0-9) Eosinophils (%) (Auto) 0% (0-3) Basophils (%) (Auto) 0% (0-3) Neutrophils # (Auto) 11.9x10^3uL (1.8-7.7) Lymphocytes # (Auto) 0.6x10^3/uL (1.0-4.8) Monocytes # (Auto) 0.3x10^3/uL (0.0-1.1) Eosinophils # (Auto) 0.0x10^3/uL (0.0-0.7) Basophils # (Auto) 0.0x10^3/uL (0.0-0.2) Sodium Level 138mmol/L (136-145) Potassium Level 5.3mmol/L (3.5-5.1) Chloride Level 100mmol/L (98-107) Carbon Dioxide Level 29mmol/L (21-32) Anion Gap 9 (6-14) Blood Urea Nitrogen 23mg/dL (8-26) Creatinine 1.3mg/dL (0.7-1.3) Estimated GFR (Cockcroft-Gault) 55.2 Glucose Level 271mg/dL (70-99) Calcium Level 9.0mg/dL (8.5-10.1) Glucose (Fingerstick) 277mg/dL (70-99) Laboratory Tests Test 11/10/16 18:00 11/10/16 18:20 11/10/16 20:30 11/10/16 22:05 White Blood Count 12.0x10^3/uL (4.0-11.0) Red Blood Count 5.91x10^6/uL (4.30-5.70) Hemoglobin 15.6g/dL (13.0-17.5) Hematocrit 49.5% (39.0-53.0) Mean Corpuscular Volume 84fL (79-100) Mean Corpuscular Hemoglobin 26pg (25-35) Mean Corpuscular Hemoglobin Concent 32g/dL (31-37) Red Cell Distribution Width 15.3% (11.5-14.5) Platelet Count 218x10^3/uL (140-400) Neutrophils (%) (Auto) 69% (31-73) Lymphocytes (%) (Auto) 19% (24-48) Monocytes (%) (Auto) 8% (0-9) Eosinophils (%) (Auto) 3% (0-3) Basophils (%) (Auto) 0% (0-3) Neutrophils # (Auto) 8.4x10^3uL (1.8-7.7) Lymphocytes # (Auto) 2.3x10^3/uL (1.0-4.8) Monocytes # (Auto) 0.9x10^3/uL (0.0-1.1) Eosinophils # (Auto) 0.4x10^3/uL (0.0-0.7) Basophils # (Auto) 0.0x10^3/uL (0.0-0.2) Sodium Level 145mmol/L (136-145) Potassium Level 4.8mmol/L (3.5-5.1) Chloride Level 106mmol/L (98-107) Carbon Dioxide Level 32mmol/L (21-32) Anion Gap 7 (6-14) Blood Urea Nitrogen 19mg/dL (8-26) Creatinine 1.2mg/dL (0.7-1.3) Estimated GFR (Cockcroft-Gault) 60.6 BUN/Creatinine Ratio 16 (6-20) Glucose Level 142mg/dL (70-99) Calcium Level 8.9mg/dL (8.5-10.1) Total Bilirubin 0.5mg/dL (0.2-1.0) Aspartate Amino Transf (AST/SGOT) 38U/L (15-37) Alanine Aminotransferase (ALT/SGPT) 56U/L (16-63) Alkaline Phosphatase 89U/L (46-116) Troponin I Quantitative 0.060ng/mL (0.000-0.055) XB-Bwi-S-Type Natriuretic Peptide 1132pg/mL (0-124) Total Protein 8.4g/dL (6.4-8.2) Albumin 3.9g/dL (3.4-5.0) Albumin/Globulin Ratio 0.9 (1.0-1.7) Influenza Type A Antigen Negative (NEGATIVE) Influenza Type B Antigen Negative (NEGATIVE) O2 Saturation 98% (92-99) Arterial Blood pH 7.36 (7.35-7.45) Arterial Blood pCO2 at Patient Temp 48mmHg (35-46) Arterial Blood pO2 at Patient Temp 135mmHg (65-108) Arterial Blood HCO3 27mmol/L (21-28) Arterial Blood Base Excess 1mmol/L (-3-3) FiO2 40.0 Glucose (Fingerstick) 210mg/dL (70-99) Test 11/11/16 00:15 11/11/16 06:20 11/11/16 07:55 Troponin I Quantitative 0.538ng/mL (0.000-0.055) 0.482ng/mL (0.000-0.055) White Blood Count 12.8x10^3/uL (4.0-11.0) Red Blood Count 5.68x10^6/uL (4.30-5.70) Hemoglobin 14.8g/dL (13.0-17.5) Hematocrit 46.5% (39.0-53.0) Mean Corpuscular Volume 82fL (79-100) Mean Corpuscular Hemoglobin 26pg (25-35) Mean Corpuscular Hemoglobin Concent 32g/dL (31-37) Red Cell Distribution Width 15.2% (11.5-14.5) Platelet Count 191x10^3/uL (140-400) Neutrophils (%) (Auto) 93% (31-73) Lymphocytes (%) (Auto) 5% (24-48) Monocytes (%) (Auto) 2% (0-9) Eosinophils (%) (Auto) 0% (0-3) Basophils (%) (Auto) 0% (0-3) Neutrophils # (Auto) 11.9x10^3uL (1.8-7.7) Lymphocytes # (Auto) 0.6x10^3/uL (1.0-4.8) Monocytes # (Auto) 0.3x10^3/uL (0.0-1.1) Eosinophils # (Auto) 0.0x10^3/uL (0.0-0.7) Basophils # (Auto) 0.0x10^3/uL (0.0-0.2) Sodium Level 138mmol/L (136-145) Potassium Level 5.3mmol/L (3.5-5.1) Chloride Level 100mmol/L (98-107) Carbon Dioxide Level 29mmol/L (21-32) Anion Gap 9 (6-14) Blood Urea Nitrogen 23mg/dL (8-26) Creatinine 1.3mg/dL (0.7-1.3) Estimated GFR (Cockcroft-Gault) 55.2 Glucose Level 271mg/dL (70-99) Calcium Level 9.0mg/dL (8.5-10.1) Glucose (Fingerstick) 277mg/dL (70-99) Medications Active Scripts Medications Dose Route/Sig Days Date Category Stiolto Respimat Inhal Victor (Tiotropium Br/Olodaterol HCl) 4 Gm Mist.inhal 4 Gm IH DAILY 11/10/16 Reported Novolog Flexpen (Insulin Aspart) 100 Unit/1 Ml Insuln.pen 1 Unit SQ 11/10/16 Reported Ventolin Hfa Inhaler (Albuterol Sulfate) 18 Gm Hfa.aer.ad 2 Puff INH QID 11/10/16 Reported Flovent 110MCG Hfa (Fluticasone Propionate) 12 Gm Aer.w.adap 2 Puff IH BID 11/10/16 Reported Losartan Potassium 25 Mg Tablet 100 Mg PO DAILY 11/10/16 Reported Levemir (Insulin Detemir) 100 Unit/1 Ml Vial 70 Unit SQ QHS 11/10/16 Reported Impression . FULL CONSULT DICTATED I THINK THIS IS NEW ONSET CHF NOT SO MUCH IS ASTHMA WILL AWAIT ECHO REPORT THANKS D/W DR GILES AND ASAD ROSARIO MD Nov 11, 2016 10:58
[2016-11-11 11:54] LABS: PLT ESTIMATE ADEQUATE (ADEQUATE)
--- NOTE | 2016-11-11 18:34 | CARD ---
APPROVED REPORT EXAM: Two-dimensional and M-mode echocardiogram with Doppler and color Doppler. Other Information Quality : AverageHR: 83bpm Rhythm : Atrial Fibrillation INDICATION Congestive Heart Failure Respiratory Failure 2D DIMENSIONS RVDd3.5 (2.9-3.5cm)Left Atrium(2D)4.0 (1.6-4.0cm) IVSd1.2 (0.7-1.1cm)Aortic Root(2D)2.8 (2.0-3.7cm) LVDd5.0 (3.9-5.9cm)LVOT Diameter2.1 (1.8-2.4cm) PWd1.0 (0.7-1.1cm)LVDs3.7 (2.5-4.0cm) FS (%) 25.3 %SV58.4 ml LVEF(%)45.0 (>50%) Aortic Valve AoV Peak Vivek.96.7cm/sAoV VTI19.2cm AO Peak GR.3.7mmHgLVOT Peak Vivek.100.5cm/s LVOT VTI 17.72cmAO Mean GR.2mmHg MELITA (VMAX)3.98oj1GLK (VTI)3.30cm2 Pulmonary Valve PV Peak Mjxfwgqp502.3cm/sPV Peak Grad.5mmHg RVOT VTI13.0cm Tricuspid Valve TR P. [id number]/sRAP [id number] TR Peak Gr.[id number] LEFT VENTRICLE The left ventricle is normal size. There is mild concentric left ventricular hypertrophy. Left ventri tanja systolic function is mildly impaired The Ejection Fraction is 45%. There is normal LV segmental w all motion. Unable to assess due to abnormal heart rhythm. There is no ventricular septal defect visu alized. RIGHT VENTRICLE The right ventricle is mildly dilated The right ventricular systolic function is mildly impaired ATRIA The left atrium size is normal. The right atrium size is normal. The interatrial septum is intact wit h no evidence for an atrial septal defect or patent foramen ovale as noted on 2-D or Doppler imaging. AORTIC VALVE The aortic valve is trileaflet. The aortic valve is mildly thickened. Doppler and Color Flow revealed no significant aortic regurgitation. There is no significant aortic valvular stenosis. MITRAL VALVE The mitral valve leaflets are thickened. There is no evidence of mitral valve prolapse. There is no m itral valve stenosis. Doppler and Color Flow revealed no mitral valve regurgitation noted. TRICUSPID VALVE The tricuspid valve is normal in structure. Doppler and Color Flow revealed trace tricuspid regurgita tion. Unable to accurately estimate the PA pressure There is no tricuspid valve stenosis. PULMONIC VALVE The pulmonary valve is normal in structure and function. Doppler and Color Flow revealed no pulmonic valvular regurgitation. There is no pulmonic valvular stenosis. GREAT VESSELS The aortic root is normal in size. The ascending aorta is normal in size. The IVC is normal in size a nd collapses >50% with inspiration. PERICARDIAL EFFUSION There is no pleural effusion. There is no evidence of significant pericardial effusion. Critical Notification Critical Value: No <Conclusion> Left ventricle systolic function is mildly impaired The Ejection Fraction is 45%. The right ventricular systolic function is mildly impaired The left atrium size is normal. The right atrium size is normal. The aortic valve is trileaflet. The aortic valve is mildly thickened. The mitral valve leaflets are thickened. Doppler and Color Flow revealed no mitral valve regurgitation noted. Doppler and Color Flow revealed trace tricuspid regurgitation. Unable to accurately estimate the PA pressure The pulmonary valve is normal in structure and function. There is no evidence of significant pericardial effusion.
--- NOTE | 2016-11-11 18:36 | PDOC ---
Provider Note Provider Note H&P dictated # [id number] Angélica GILES MD Nov 11, 2016 18:36
[2016-11-11] MEDS ORDERED: BENZOCAINE/MENTHOL LOZENGE. PO PRN (21:15)
--- NOTE | 2016-11-11 21:37 | HP ---
ADMIT DATE: 11/10/2016 ADMISSION DIAGNOSIS: Shortness of breath. HISTORY OF PRESENT ILLNESS: This is a 66-year-old white male with longstanding diabetes, who was in the office the morning of admission with symptoms of a mild COPD exacerbation or asthma exacerbation. He was not actively wheezing at the time, but was requesting prednisone. Since he retired, he has not really had any significant exacerbations. The cold weather seems to brought it on. He has also been exposed to some chemicals at home. He had a 6-minute walk done in the office, which showed he desaturated to the mid 80s. He was placed on 3 liters nasal cannula oxygen and corrected back to the upper 90s. Home oxygen was ordered for him. He had blood drawn prior to leaving the office, but once he walked in the cold there to the car, he needed 3 puffs on his inhaler, did have some bronchospasm type symptoms. He then went home and received his oxygen and had a portable bottle. He went to pick his up from work. The perfume on her jacket seemed to irritate his breathing. On the way home from that, he stopped to get gas for the car. The cold air and gas fumes again seemed to worsen his respiratory status and at that point he was unable to catch his breath. As they were driving by the fire station on the way home, he stopped and EMT jacked him and transported him by ambulance to the Emergency Room. At that point, he felt rather panicky and felt like his heart was racing. He was denying chest pain. His oxygen saturations were only in the 70s upon arrival and he was placed on a nonrebreather and en route to the ED, he received a neb treatment. He had not started his steroid prescription that he was given at his office appointment. He has not had any recent travel. He has not had any recent swelling in his legs. He has not had any history of pulmonary embolism. He has not had any prior history of heart disease. He does not smoke and has not been around secondhand smoke. PAST MEDICAL HISTORY: Asthma, COPD, type 2 diabetes, hypertension, hyperlipidemia. PAST SURGICAL HISTORY: Significant for right shoulder. FAMILY HISTORY: Noncontributory. SOCIAL HISTORY: No tobacco or alcohol. He is . ALLERGIES: He has no known drug allergies. HOME MEDICATIONS: Include albuterol inhaler p.r.n., Flovent 110 mcg 2 puffs b.i.d., NovoLog 20-30 units t.i.d. with meals, Levemir 70 units at bedtime, losartan 100 mg daily and Stiolto Respimat 1 inhalation b.i.d. PHYSICAL EXAMINATION: VITAL SIGNS: He is afebrile, blood pressures intermittently elevated, respiratory rate is normal and his oxygen saturations were normal on room air after spending the night on BiPAP. GENERAL: He did not sleep well last night because of the BiPAP. HEENT: He is wearing his glasses, but otherwise unremarkable. No sinus congestion, pain or tenderness. Mucous membranes are moist. No thrush. NECK: Supple. HEART: Regular rate and rhythm. No murmurs heard. Normal S1 and S2. LUNGS: Clear to auscultation currently. ABDOMEN: Nondistended, nontender without hepatosplenomegaly or other masses. MUSCULOSKELETAL: His joints are nontender. EXTREMITIES: There is no clubbing, cyanosis or peripheral edema. SKIN: Not showing significant bruising or other lesions. NEUROLOGIC: He is intact. He is alert and oriented. His mood is normal. Affect is normal. LABORATORY DATA: Potassium is slightly high at 5.3, BUN is 23, creatinine 1.3 with an EGFR of 55, glucose has generally been in the 250 range. His initial troponin was elevated at ____ 0.06, bumped up to 0.53, but coming down to 0.482. Chest x-ray shows some borderline heart enlargement with bilateral infiltrates suggesting pneumonia versus heart failure. His proBNP was elevated at 1132. Serology tests were negative for flu influenza A and B. Echocardiogram has been done, but not yet read. ASSESSMENT: 1. New-onset congestive heart failure, suspect underlying diabetic cardiomyopathy with demand ischemia causing his elevation in enzymes. 2. Chronic obstructive pulmonary disease/asthma with acute exacerbation. 3. Exertional hypoxemia. 4. Longstanding type 2 diabetes, on insulin. 5. Hypertension. 6. Hyperlipidemia. PLAN: He is admitted. Pulmonary and cardiac consultations have been obtained, awaiting echo. Steroids have increased his blood sugar. Sliding scale insulin is started in addition to his routine doses. Additional recommendations per specialists. W Kate GILES MD DR: KRISTYN/anusha JOB#: [id number] / [id number]
--- NOTE | 2016-11-12 02:53 | CONS ---
DATE OF CONSULTATION: 11/11/2016 ATTENDING PHYSICIAN: Dr. Willian Barrett. REASON FOR CONSULTATION: The patient seen in pulmonary consultation at the request of Dr. Barrett for acute respiratory failure requiring noninvasive ventilation. HISTORY OF PRESENT ILLNESS: The patient is a 66-year-old male with a history of COPD with an asthma component and normally utilizes Ventolin on a p.r.n. basis. He is currently nonsmoking, was actually seen in the office yesterday with Dr. Barrett. He was evaluated 6-minute walk revealed that he required oxygen supplementation. The patient went home and had increasing shortness of breath. 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 He had increasing shortness of breath, was admitted. Chest x-ray was obtained. I reviewed the x-ray, which revealed vascular congestion. The patient currently denies chest pain or pressure. He has never had congestive heart failure. An echocardiogram is currently pending. In the past week or so, he has had a cough, mostly nonproductive, wheezing and increasing shortness of breath. No pedal edema, but some paroxysmal nocturnal dyspnea. I queried the patient about the possibility of obstructive sleep apnea. He denies any excessive daytime sleepiness. He does not know, if he snores. He denies ____ his sleep. PAST MEDICAL HISTORY: COPD with an asthma component, type 2 diabetes, hypertension. PAST SURGICAL HISTORY: Right shoulder surgery. REVIEW OF SYSTEMS: As indicated above, otherwise, a 10-point system was reviewed and negative. HOME MEDICATIONS: List was reviewed. CURRENT MEDICATION: List was reviewed. ALLERGIES: No known drug allergies. FAMILY HISTORY: Noncontributory. PHYSICAL EXAMINATION: GENERAL: The patient was in obese individual with a body mass seems index of 31.4. VITAL SIGNS: He is afebrile, currently on 2 liters of oxygen supplementation off BiPAP. HEENT: Eyes, the sclerae were nonicteric. NECK: Jugular venous distention could not be assessed secondary to body habitus. CHEST: Full expansion. LUNGS: Adequate airway flow, no wheezes, rales or rhonchi. CARDIOVASCULAR: Regular rate and rhythm with S1, S2, no S3. ABDOMEN: Soft and tender, obese. EXTREMITIES: No clubbing, cyanosis, some edema. NEUROLOGIC: The patient was awake, alert, following commands. A detailed neuro exam was not performed. LABORATORY DATA: Arterial blood gas was noted. White count was slightly elevated. Hemoglobin and hematocrit noted. Electrolytes were noted. BUN and creatinine were normal. Troponin level was elevated. BNP was elevated. Chest x-ray revealed increased vascular congestion. IMPRESSION: 1. Acute respiratory failure, multifactorial secondary to acute suspect systolic heart failure, possibly diastolic and mild acute exacerbation of chronic obstructive pulmonary disease. 2. Acute exacerbation of chronic obstructive pulmonary disease. 3. Diabetes. 4. Hypertension. 5. Elevated troponin level. PLAN: 1. Continue oxygen supplementation. 2. Echocardiogram pending. 3. Diurese. 4. No need for antibiotics or steroids. 5. Nebulized treatments. 6. Continue home oxygen. I do appreciate the privilege in sharing the patient's care. ASAD ROSARIO MD DR: EVELIN/anusha JOB#: [id number] / [id number]
[2016-11-12 03:07] VITALS: BP 142/69
[2016-11-12 05:15] LABS: CALCIUM 8.9 mg/dL (8.5-10.1); CREATININE 1.4 mg/dL (0.7-1.3); GFR 50.7; POTASSIUM 4.2 mmol/L (3.5-5.1)
[2016-11-12] MEDS: INSULIN ASPART 300 UNITS/3 ML INSULN.PEN SQ SCH ×4 (07:30→13:08)
[2016-11-12] MEDS: BUDESONIDE 0.5 MG/2 ML NEBU NEB SCH (07:35)
[2016-11-12] MEDS: IPRATRPIUM/ALBUTEROL 0.5/2.5MG 3 ML NEBU. NEB SCH ×3 (07:35→16:13)
[2016-11-12] MEDS: LOSARTAN POTASSIUM 50 MG TABLET. PO SCH (09:47)
--- NOTE | 2016-11-12 11:07 | PDOC ---
PULMONARY PROGRESS NOTES Vitals Vital Signs Date Time Temp Pulse Resp B/P Pulse Ox O2 Delivery O2 Flow Rate FiO2 11/12/16 09:47 61 142/69 11/12/16 07:38 97 Nasal Cannula 2.0 11/12/16 03:07 97.7 20 97.7 Labs Laboratory Tests Test 11/10/16 18:00 11/10/16 18:20 11/10/16 20:30 11/10/16 22:05 White Blood Count 12.0x10^3/uL (4.0-11.0) Red Blood Count 5.91x10^6/uL (4.30-5.70) Hemoglobin 15.6g/dL (13.0-17.5) Hematocrit 49.5% (39.0-53.0) Mean Corpuscular Volume 84fL (79-100) Mean Corpuscular Hemoglobin 26pg (25-35) Mean Corpuscular Hemoglobin Concent 32g/dL (31-37) Red Cell Distribution Width 15.3% (11.5-14.5) Platelet Count 218x10^3/uL (140-400) Neutrophils (%) (Auto) 69% (31-73) Lymphocytes (%) (Auto) 19% (24-48) Monocytes (%) (Auto) 8% (0-9) Eosinophils (%) (Auto) 3% (0-3) Basophils (%) (Auto) 0% (0-3) Neutrophils # (Auto) 8.4x10^3uL (1.8-7.7) Lymphocytes # (Auto) 2.3x10^3/uL (1.0-4.8) Monocytes # (Auto) 0.9x10^3/uL (0.0-1.1) Eosinophils # (Auto) 0.4x10^3/uL (0.0-0.7) Basophils # (Auto) 0.0x10^3/uL (0.0-0.2) Sodium Level 145mmol/L (136-145) Potassium Level 4.8mmol/L (3.5-5.1) Chloride Level 106mmol/L (98-107) Carbon Dioxide Level 32mmol/L (21-32) Anion Gap 7 (6-14) Blood Urea Nitrogen 19mg/dL (8-26) Creatinine 1.2mg/dL (0.7-1.3) Estimated GFR (Cockcroft-Gault) 60.6 BUN/Creatinine Ratio 16 (6-20) Glucose Level 142mg/dL (70-99) Calcium Level 8.9mg/dL (8.5-10.1) Total Bilirubin 0.5mg/dL (0.2-1.0) Aspartate Amino Transf (AST/SGOT) 38U/L (15-37) Alanine Aminotransferase (ALT/SGPT) 56U/L (16-63) Alkaline Phosphatase 89U/L (46-116) Troponin I Quantitative 0.060ng/mL (0.000-0.055) TF-Hdn-S-Type Natriuretic Peptide 1132pg/mL (0-124) Total Protein 8.4g/dL (6.4-8.2) Albumin 3.9g/dL (3.4-5.0) Albumin/Globulin Ratio 0.9 (1.0-1.7) Influenza Type A Antigen Negative (NEGATIVE) Influenza Type B Antigen Negative (NEGATIVE) O2 Saturation 98% (92-99) Arterial Blood pH 7.36 (7.35-7.45) Arterial Blood pCO2 at Patient Temp 48mmHg (35-46) Arterial Blood pO2 at Patient Temp 135mmHg (65-108) Arterial Blood HCO3 27mmol/L (21-28) Arterial Blood Base Excess 1mmol/L (-3-3) FiO2 40.0 Glucose (Fingerstick) 210mg/dL (70-99) Test 11/11/16 00:15 11/11/16 06:20 11/11/16 07:55 11/11/16 11:49 Troponin I Quantitative 0.538ng/mL (0.000-0.055) 0.482ng/mL (0.000-0.055) White Blood Count 12.8x10^3/uL (4.0-11.0) Red Blood Count 5.68x10^6/uL (4.30-5.70) Hemoglobin 14.8g/dL (13.0-17.5) Hematocrit 46.5% (39.0-53.0) Mean Corpuscular Volume 82fL (79-100) Mean Corpuscular Hemoglobin 26pg (25-35) Mean Corpuscular Hemoglobin Concent 32g/dL (31-37) Red Cell Distribution Width 15.2% (11.5-14.5) Platelet Count 191x10^3/uL (140-400) Neutrophils (%) (Auto) 93% (31-73) Lymphocytes (%) (Auto) 5% (24-48) Monocytes (%) (Auto) 2% (0-9) Eosinophils (%) (Auto) 0% (0-3) Basophils (%) (Auto) 0% (0-3) Neutrophils # (Auto) 11.9x10^3uL (1.8-7.7) Lymphocytes # (Auto) 0.6x10^3/uL (1.0-4.8) Monocytes # (Auto) 0.3x10^3/uL (0.0-1.1) Eosinophils # (Auto) 0.0x10^3/uL (0.0-0.7) Basophils # (Auto) 0.0x10^3/uL (0.0-0.2) Segmented Neutrophils % 87% (35-66) Band Neutrophils % 9% (0-9) Lymphocytes % 3% (24-48) Monocytes % 1% (0-10) Platelet Estimate Adequate (ADEQUATE) Platelet Clumps, EDTA Present Large Platelets Giant Platelets Present Sodium Level 138mmol/L (136-145) Potassium Level 5.3mmol/L (3.5-5.1) Chloride Level 100mmol/L (98-107) Carbon Dioxide Level 29mmol/L (21-32) Anion Gap 9 (6-14) Blood Urea Nitrogen 23mg/dL (8-26) Creatinine 1.3mg/dL (0.7-1.3) Estimated GFR (Cockcroft-Gault) 55.2 Glucose Level 271mg/dL (70-99) Calcium Level 9.0mg/dL (8.5-10.1) Glucose (Fingerstick) 277mg/dL (70-99) 256mg/dL (70-99) Test 11/11/16 16:49 11/11/16 20:58 11/12/16 03:52 11/12/16 08:22 Glucose (Fingerstick) 221mg/dL (70-99) 178mg/dL (70-99) 149mg/dL (70-99) Sodium Level 141mmol/L (136-145) Potassium Level 4.2mmol/L (3.5-5.1) Chloride Level 103mmol/L (98-107) Carbon Dioxide Level 30mmol/L (21-32) Anion Gap 8 (6-14) Blood Urea Nitrogen 29mg/dL (8-26) Creatinine 1.4mg/dL (0.7-1.3) Estimated GFR (Cockcroft-Gault) 50.7 Glucose Level 166mg/dL (70-99) Calcium Level 8.9mg/dL (8.5-10.1) Laboratory Tests Test 11/11/16 11:49 11/11/16 16:49 11/11/16 20:58 11/12/16 03:52 Glucose (Fingerstick) 256mg/dL (70-99) 221mg/dL (70-99) 178mg/dL (70-99) Sodium Level 141mmol/L (136-145) Potassium Level 4.2mmol/L (3.5-5.1) Chloride Level 103mmol/L (98-107) Carbon Dioxide Level 30mmol/L (21-32) Anion Gap 8 (6-14) Blood Urea Nitrogen 29mg/dL (8-26) Creatinine 1.4mg/dL (0.7-1.3) Estimated GFR (Cockcroft-Gault) 50.7 Glucose Level 166mg/dL (70-99) Calcium Level 8.9mg/dL (8.5-10.1) Test 11/12/16 08:22 Glucose (Fingerstick) 149mg/dL (70-99) Medications Active Scripts Medications Dose Route/Sig Days Date Category Stiolto Respimat Inhal [place] (Tiotropium Br/Olodaterol HCl) 4 Gm Mist.inhal 4 Gm IH DAILY 11/10/16 Reported Novolog Flexpen (Insulin Aspart) 100 Unit/1 Ml Insuln.pen 1 Unit SQ 11/10/16 Reported Ventolin Hfa Inhaler (Albuterol Sulfate) 18 Gm Hfa.aer.ad 2 Puff INH QID 11/10/16 Reported Flovent 110MCG Hfa (Fluticasone Propionate) 12 Gm Aer.w.adap 2 Puff IH BID 11/10/16 Reported Losartan Potassium 25 Mg Tablet 100 Mg PO DAILY 11/10/16 Reported Levemir (Insulin Detemir) 100 Unit/1 Ml Vial 70 Unit SQ QHS 11/10/16 Reported Impression . 1. Acute respiratory failure, multifactorial secondary to acute suspect systolic heart failure, possibly diastolic and mild acute exacerbation of chronic obstructive pulmonary disease. 2. Acute exacerbation of chronic obstructive pulmonary disease. 3. Diabetes. 4. Hypertension. 5. Elevated troponin level. echo Left ventricle systolic function is mildly impaired The Ejection Fraction is 45%. The right ventricular systolic function is mildly impaired The left atrium size is normal. The right atrium size is normal. The aortic valve is trileaflet. The aortic valve is mildly thickened. The mitral valve leaflets are thickened. Doppler and Color Flow revealed no mitral valve regurgitation noted. Doppler and Color Flow revealed trace tricuspid regurgitation. Unable to accurately estimate the PA pressure The pulmonary valve is normal in structure and function. There is no evidence of significant pericardial effusion. Plan . PLAN: 1. Continue oxygen supplementation. 2. Echocardiogram pending. 3. Diurese. 4. No need for antibiotics or steroids. 5. Nebulized treatments. 6. Continue home oxygen. ASAD ROSARIO MD Nov 12, 2016 11:07
[2016-11-12 11:22] VITALS: BP 114/63
--- NOTE | 2016-11-12 14:02 | PDOC ---
PROGRESS NOTES Subjective Subjective Pt s/e and reports he is doing well. Denies any chest pain or tightness, reports continued SOB but it is improving. Objective Objective Vital Signs Date Time Temp Pulse Resp B/P Pulse Ox O2 Delivery O2 Flow Rate FiO2 11/12/16 11:22 97.9 72 17 114/63 97 Nasal Cannula 2.0 97.9 Intake and Output 11/12/16 07:00 Intake Total 1270 ml Output Total 1425 ml Balance -155 ml Intake Oral 1120 ml IV Total 150 ml Output Urine Total 1425 ml Physical Exam Heart: Regular rate, Normal S1, Normal S2, No murmurs Extremities: No clubbing, No cyanosis, No edema General: Alert, Cooperative, No acute distress Lungs: Clear to auscultation Neck: Supple, No JVD Assessment Assessment (2) COPD (chronic obstructive pulmonary disease) Status: Acute (3) Respiratory failure Status: Acute Plan Plan of Care Pt to d/c home, discussed f/u appointment as an outpatient in approx 4 weeks Comment Review of Relevant I have reviewed the following items thomas (where applicable) has been applied. Labs Laboratory Tests Test 11/10/16 18:00 11/10/16 18:20 11/10/16 20:30 11/10/16 22:05 White Blood Count 12.0x10^3/uL (4.0-11.0) Red Blood Count 5.91x10^6/uL (4.30-5.70) Hemoglobin 15.6g/dL (13.0-17.5) Hematocrit 49.5% (39.0-53.0) Mean Corpuscular Volume 84fL (79-100) Mean Corpuscular Hemoglobin 26pg (25-35) Mean Corpuscular Hemoglobin Concent 32g/dL (31-37) Red Cell Distribution Width 15.3% (11.5-14.5) Platelet Count 218x10^3/uL (140-400) Neutrophils (%) (Auto) 69% (31-73) Lymphocytes (%) (Auto) 19% (24-48) Monocytes (%) (Auto) 8% (0-9) Eosinophils (%) (Auto) 3% (0-3) Basophils (%) (Auto) 0% (0-3) Neutrophils # (Auto) 8.4x10^3uL (1.8-7.7) Lymphocytes # (Auto) 2.3x10^3/uL (1.0-4.8) Monocytes # (Auto) 0.9x10^3/uL (0.0-1.1) Eosinophils # (Auto) 0.4x10^3/uL (0.0-0.7) Basophils # (Auto) 0.0x10^3/uL (0.0-0.2) Sodium Level 145mmol/L (136-145) Potassium Level 4.8mmol/L (3.5-5.1) Chloride Level 106mmol/L (98-107) Carbon Dioxide Level 32mmol/L (21-32) Anion Gap 7 (6-14) Blood Urea Nitrogen 19mg/dL (8-26) Creatinine 1.2mg/dL (0.7-1.3) Estimated GFR (Cockcroft-Gault) 60.6 BUN/Creatinine Ratio 16 (6-20) Glucose Level 142mg/dL (70-99) Calcium Level 8.9mg/dL (8.5-10.1) Total Bilirubin 0.5mg/dL (0.2-1.0) Aspartate Amino Transf (AST/SGOT) 38U/L (15-37) Alanine Aminotransferase (ALT/SGPT) 56U/L (16-63) Alkaline Phosphatase 89U/L (46-116) Troponin I Quantitative 0.060ng/mL (0.000-0.055) HJ-Ovv-M-Type Natriuretic Peptide 1132pg/mL (0-124) Total Protein 8.4g/dL (6.4-8.2) Albumin 3.9g/dL (3.4-5.0) Albumin/Globulin Ratio 0.9 (1.0-1.7) Influenza Type A Antigen Negative (NEGATIVE) Influenza Type B Antigen Negative (NEGATIVE) O2 Saturation 98% (92-99) Arterial Blood pH 7.36 (7.35-7.45) Arterial Blood pCO2 at Patient Temp 48mmHg (35-46) Arterial Blood pO2 at Patient Temp 135mmHg (65-108) Arterial Blood HCO3 27mmol/L (21-28) Arterial Blood Base Excess 1mmol/L (-3-3) FiO2 40.0 Glucose (Fingerstick) 210mg/dL (70-99) Test 11/11/16 00:15 11/11/16 06:20 11/11/16 07:55 11/11/16 11:49 Troponin I Quantitative 0.538ng/mL (0.000-0.055) 0.482ng/mL (0.000-0.055) White Blood Count 12.8x10^3/uL (4.0-11.0) Red Blood Count 5.68x10^6/uL (4.30-5.70) Hemoglobin 14.8g/dL (13.0-17.5) Hematocrit 46.5% (39.0-53.0) Mean Corpuscular Volume 82fL (79-100) Mean Corpuscular Hemoglobin 26pg (25-35) Mean Corpuscular Hemoglobin Concent 32g/dL (31-37) Red Cell Distribution Width 15.2% (11.5-14.5) Platelet Count 191x10^3/uL (140-400) Neutrophils (%) (Auto) 93% (31-73) Lymphocytes (%) (Auto) 5% (24-48) Monocytes (%) (Auto) 2% (0-9) Eosinophils (%) (Auto) 0% (0-3) Basophils (%) (Auto) 0% (0-3) Neutrophils # (Auto) 11.9x10^3uL (1.8-7.7) Lymphocytes # (Auto) 0.6x10^3/uL (1.0-4.8) Monocytes # (Auto) 0.3x10^3/uL (0.0-1.1) Eosinophils # (Auto) 0.0x10^3/uL (0.0-0.7) Basophils # (Auto) 0.0x10^3/uL (0.0-0.2) Segmented Neutrophils % 87% (35-66) Band Neutrophils % 9% (0-9) Lymphocytes % 3% (24-48) Monocytes % 1% (0-10) Platelet Estimate Adequate (ADEQUATE) Platelet Clumps, EDTA Present Large Platelets Giant Platelets Present Sodium Level 138mmol/L (136-145) Potassium Level 5.3mmol/L (3.5-5.1) Chloride Level 100mmol/L (98-107) Carbon Dioxide Level 29mmol/L (21-32) Anion Gap 9 (6-14) Blood Urea Nitrogen 23mg/dL (8-26) Creatinine 1.3mg/dL (0.7-1.3) Estimated GFR (Cockcroft-Gault) 55.2 Glucose Level 271mg/dL (70-99) Calcium Level 9.0mg/dL (8.5-10.1) Glucose (Fingerstick) 277mg/dL (70-99) 256mg/dL (70-99) Test 11/11/16 16:49 11/11/16 20:58 11/12/16 03:52 11/12/16 08:22 Glucose (Fingerstick) 221mg/dL (70-99) 178mg/dL (70-99) 149mg/dL (70-99) Sodium Level 141mmol/L (136-145) Potassium Level 4.2mmol/L (3.5-5.1) Chloride Level 103mmol/L (98-107) Carbon Dioxide Level 30mmol/L (21-32) Anion Gap 8 (6-14) Blood Urea Nitrogen 29mg/dL (8-26) Creatinine 1.4mg/dL (0.7-1.3) Estimated GFR (Cockcroft-Gault) 50.7 Glucose Level 166mg/dL (70-99) Calcium Level 8.9mg/dL (8.5-10.1) Test 11/12/16 11:26 Glucose (Fingerstick) 172mg/dL (70-99) Laboratory Tests Test 11/11/16 16:49 11/11/16 20:58 11/12/16 03:52 11/12/16 08:22 Glucose (Fingerstick) 221mg/dL (70-99) 178mg/dL (70-99) 149mg/dL (70-99) Sodium Level 141mmol/L (136-145) Potassium Level 4.2mmol/L (3.5-5.1) Chloride Level 103mmol/L (98-107) Carbon Dioxide Level 30mmol/L (21-32) Anion Gap 8 (6-14) Blood Urea Nitrogen 29mg/dL (8-26) Creatinine 1.4mg/dL (0.7-1.3) Estimated GFR (Cockcroft-Gault) 50.7 Glucose Level 166mg/dL (70-99) Calcium Level 8.9mg/dL (8.5-10.1) Test 11/12/16 11:26 Glucose (Fingerstick) 172mg/dL (70-99) Microbiology 11/10/16 Blood Culture - Preliminary, Resulted NO GROWTH AFTER 1 DAY Medications Current Medications Albuterol/ Ipratropium (Duoneb) 3 ml 1X ONCE NEB Last administered on 18:13; Start 11/10/16 at 18:15; Stop 11/10/16 at 18:16; Status DC Methylprednisolone Sodium Succinate (Solu-Medrol 125mg Vial) 125 mg 1X ONCE IV Last administered on 11/10/16 18:23; Start 11/10/16 at 18:15; Stop 11/10/16 at 18:16; Status DC Fentanyl Citrate (Fentanyl 2ml Vial) 25 mcg PRN Q15MIN PRN IV PAIN GREATER THAN 3/10; Start 11/10/16 at 19:15; Stop 11/11/16 at 19:14; Status DC Nitroglycerin (Nitrostat) 0.4 mg PRN Q5MIN PRN SL CHEST PAIN; Start 11/10/16 at 19:15 Furosemide (Lasix) 20 mg 1X ONCE IVP Last administered on 11/10/16 19:27; Start 11/10/16 at 19:15; Stop 11/10/16 at 19:16; Status DC Aspirin ([place]sey Aspirin) 325 mg 1X ONCE PO ; Start 11/10/16 at 19:15; Stop 11/10 at 19:16; Status DC Ondansetron HCl (Zofran) 4 mg PRN Q8HRS PRN IV NAUSEA/VOMITING; Start 11/10/16 at 20:30; Stop 11/11/16 at 20:29; Status DC Morphine Sulfate 4 mg PRN Q2HR PRN IV PAIN; Start 11/10/16 at 20:30; Stop 11/11 at 20:29; Status DC Acetaminophen (Tylenol) 650 mg PRN Q4HRS PRN PO FEVER; Start 11/10/16 at 20:30 ; Stop 11/11/16 at 20:29; Status DC Nitroglycerin (Nitrostat) 0.4 mg PRN Q5MIN PRN SL CHEST PAIN; Start 11/10/16 at 20:30; Stop 11/10/16 at 20:31; Status DC Albuterol/ Ipratropium (Duoneb) 3 ml RTQID NEB Last administered on 11/12/16 11:12; Start 11/10/16 at 20:30; Stop 11/12/16 at 20:29 Insulin Aspart (Novolog) 0-5 UNITS TIDWMEALS SQ Last administered on 11/11/16 09:18; Start 11/11/16 at 08:00 Dextrose 12.5 gm PRN Q15MIN PRN IV SEE COMMENTS; Start 11/10/16 at 20:30 Levofloxacin/ Dextrose 1 each 1 each PRN DAILY PRN MC SEE COMMENTS; Start 11/10 at 20:45; Stop 11/11/16 at 15:17; Status DC Levofloxacin/ Dextrose (LEVAQUIN 750mg PREMIX) 150 ml @ 100 mls/hr Q24H IV Last administered on 11/11/16 00:08; Start 11/10/16 at 21:00; Stop 11/11/16 at 15:16; Status DC Losartan Potassium (Cozaar) 100 mg DAILY PO Last administered on 11/12/16 09: 47; Start 11/11/16 at 09:00 Non-Formulary Medication 2 puff QID INH FOR ASTHMA; Start 11/11/16 at 09:00; Status UNV Non-Formulary Medication 2 puff BID IH ; Start 11/11/16 at 09:00; Status UNV Insulin Detemir (Levemir) 70 units QHS SQ Last administered on 11/11/16 21:57 ; Start 11/11/16 at 00:30 Non-Formulary Medication 4 gm DAILY IH ; Start 11/11/16 at 09:00; Status UNV Budesonide (Pulmicort) 0.5 mg RTBID NEB Last administered on 11/12/16 07:35; Start 11/11/16 at 08:00 Insulin Aspart (Novolog) 30 units TIDAC SQ Last administered on 11/12/16 13:08 ; Start 11/11/16 at 11:30 Docusate Sodium 100 mg 100 mg PRN DAILY PRN PO CONSTIPATION; Start 3/15/17 at 10:00 Levofloxacin/ Dextrose (LEVAQUIN 750mg PREMIX) 150 ml @ 100 mls/hr Q24H IV Last administered on 11/11/16t 21:38; Start 11/11/16 at 22:00 Throat Lozenges (Cepacol Sore Throat Lozenge) 1 jillian PRN Q2HRS PRN PO SORE THROAT; Start 11/11/16 at 21:15 Active Scripts Active Reported Stiolto Respimat Inhal [place] (Tiotropium Br/Olodaterol HCl) 4 Gm Mist.inhal 4 Gm IH DAILY Novolog Flexpen (Insulin Aspart) 100 Unit/1 Ml Insuln.pen 1 Unit SQ Ventolin Hfa Inhaler (Albuterol Sulfate) 18 Gm Hfa.aer.ad 2 Puff INH QID Flovent 110MCG Hfa (Fluticasone Propionate) 12 Gm Aer.w.adap 2 Puff IH BID Losartan Potassium 25 Mg Tablet 100 Mg PO DAILY Levemir (Insulin Detemir) 100 Unit/1 Ml Vial 70 Unit SQ QHS Vitals/I & O Vital Sign - Last 24 Hours 11/11/16 11/11/16 11/11/16 11/11/16 15:12 15:26 19:00 19:28 Temp 97.8 97.9 97.8 97.9 Pulse 87 70 Resp 20 24 B/P 121/61 125/57 Pulse Ox 98 97 99 98 O2 Delivery Aerosol Mask Nasal Cannula Nasal Cannula O2 Flow Rate 2.0 2.0 11/11/16 11/11/16 11/11/16 11/12/16 19:28 20:00 23:39 03:07 Temp 97.4 97.7 97.4 97.7 Pulse 71 61 Resp 20 20 B/P 112/52 142/69 Pulse Ox 98 100 97 O2 Delivery Nasal Cannula Room Air Nasal Cannula Nasal Cannula O2 Flow Rate 2.0 2.0 2.0 11/12/16 11/12/16 11/12/16 11/12/16 07:38 09:47 11:14 11:22 Temp 97.9 97.9 Pulse 61 72 Resp 17 B/P 142/69 114/63 Pulse Ox 97 96 97 O2 Delivery Nasal Cannula Nasal Cannula Nasal Cannula O2 Flow Rate 2.0 2.0 2.0 Intake and Output 11/11/16 11/11/16 11/12/16 15:00 23:00 07:00 Intake Total 800 ml 470 ml Output Total 400 ml 650 ml 375 ml Balance -400 ml 150 ml 95 ml ELLE WEBER MD Nov 12, 2016 14:02
[2016-11-12 15:00] VITALS: BP 129/75
--- NOTE | 2016-11-12 19:23 | PDOC3 ---
Discharge Summary Visit Information Date of Admission: Nov 10, 2016 Date of Discharge: Nov 12, 2016 Admitting Diagnosis Comment: Acute respiratory failure Final Diagnosis Problems Medical Problems: (1) Asthma exacerbation Status: Acute (2) CHF (congestive heart failure) Status: Acute (3) COPD (chronic obstructive pulmonary disease) Status: Acute (4) Respiratory failure Status: Acute Brief Hospital Course Allergies Allergies Coded Allergies Type Severity Reaction Last Updated Verified No Known Drug Allergies 06/01/14 No Vital Signs Vital Signs Date Time Temp Pulse Resp B/P Pulse Ox O2 Delivery O2 Flow Rate FiO2 11/12/16 16:13 Nasal Cannula 2.0 11/12/16 15:00 98.3 69 17 129/75 98 98.3 Lab Results Laboratory Tests Test 11/10/16 20:30 11/10/16 22:05 11/11/16 00:15 11/11/16 06:20 O2 Saturation 98% (92-99) Arterial Blood pH 7.36 (7.35-7.45) Arterial Blood pCO2 at Patient Temp 48mmHg (35-46) Arterial Blood pO2 at Patient Temp 135mmHg (65-108) Arterial Blood HCO3 27mmol/L (21-28) Arterial Blood Base Excess 1mmol/L (-3-3) FiO2 40.0 Glucose (Fingerstick) 210mg/dL (70-99) Troponin I Quantitative 0.538ng/mL (0.000-0.055) 0.482ng/mL (0.000-0.055) White Blood Count 12.8x10^3/uL (4.0-11.0) Red Blood Count 5.68x10^6/uL (4.30-5.70) Hemoglobin 14.8g/dL (13.0-17.5) Hematocrit 46.5% (39.0-53.0) Mean Corpuscular Volume 82fL (79-100) Mean Corpuscular Hemoglobin 26pg (25-35) Mean Corpuscular Hemoglobin Concent 32g/dL (31-37) Red Cell Distribution Width 15.2% (11.5-14.5) Platelet Count 191x10^3/uL (140-400) Neutrophils (%) (Auto) 93% (31-73) Lymphocytes (%) (Auto) 5% (24-48) Monocytes (%) (Auto) 2% (0-9) Eosinophils (%) (Auto) 0% (0-3) Basophils (%) (Auto) 0% (0-3) Neutrophils # (Auto) 11.9x10^3uL (1.8-7.7) Lymphocytes # (Auto) 0.6x10^3/uL (1.0-4.8) Monocytes # (Auto) 0.3x10^3/uL (0.0-1.1) Eosinophils # (Auto) 0.0x10^3/uL (0.0-0.7) Basophils # (Auto) 0.0x10^3/uL (0.0-0.2) Segmented Neutrophils % 87% (35-66) Band Neutrophils % 9% (0-9) Lymphocytes % 3% (24-48) Monocytes % 1% (0-10) Platelet Estimate Adequate (ADEQUATE) Platelet Clumps, EDTA Present Large Platelets Giant Platelets Present Sodium Level 138mmol/L (136-145) Potassium Level 5.3mmol/L (3.5-5.1) Chloride Level 100mmol/L (98-107) Carbon Dioxide Level 29mmol/L (21-32) Anion Gap 9 (6-14) Blood Urea Nitrogen 23mg/dL (8-26) Creatinine 1.3mg/dL (0.7-1.3) Estimated GFR (Cockcroft-Gault) 55.2 Glucose Level 271mg/dL (70-99) Calcium Level 9.0mg/dL (8.5-10.1) Test 11/11/16 07:55 11/11/16 11:49 11/11/16 16:49 11/11/16 20:58 Glucose (Fingerstick) 277mg/dL (70-99) 256mg/dL (70-99) 221mg/dL (70-99) 178mg/dL (70-99) Test 11/12/16 03:52 11/12/16 08:22 11/12/16 11:26 Sodium Level 141mmol/L (136-145) Potassium Level 4.2mmol/L (3.5-5.1) Chloride Level 103mmol/L (98-107) Carbon Dioxide Level 30mmol/L (21-32) Anion Gap 8 (6-14) Blood Urea Nitrogen 29mg/dL (8-26) Creatinine 1.4mg/dL (0.7-1.3) Estimated GFR (Cockcroft-Gault) 50.7 Glucose Level 166mg/dL (70-99) Calcium Level 8.9mg/dL (8.5-10.1) Glucose (Fingerstick) 149mg/dL (70-99) 172mg/dL (70-99) Laboratory Tests Test 11/11/16 20:58 11/12/16 03:52 11/12/16 08:22 11/12/16 11:26 Glucose (Fingerstick) 178mg/dL (70-99) 149mg/dL (70-99) 172mg/dL (70-99) Sodium Level 141mmol/L (136-145) Potassium Level 4.2mmol/L (3.5-5.1) Chloride Level 103mmol/L (98-107) Carbon Dioxide Level 30mmol/L (21-32) Anion Gap 8 (6-14) Blood Urea Nitrogen 29mg/dL (8-26) Creatinine 1.4mg/dL (0.7-1.3) Estimated GFR (Cockcroft-Gault) 50.7 Glucose Level 166mg/dL (70-99) Calcium Level 8.9mg/dL (8.5-10.1) Brief Hospital Course Mr. Gold is a 66 old who presented with SOA as described in H&P but he had signs of mild CHF, abnormal troponin and seen by Pulm and Cardiology. He did not have chest pain or EKG changes, his echo showed a mild cardiomyopathy with an EF of 45%, his blood sugars were elevated until he got back on his regular insulind doses but then controlled, he was given neb treatments with budesemide and duoneb and O2. He initially required Bipap but did not tolerate it well and did not sleep well. He was diuresed and he is at his baseline and he does not want to pursue inpatient workup but has arranged f/u with Dr. Price as an outpatient Discharge Information Condition at Discharge: Improved, Stable Follow Up: Weeks (1-[address] Barrett [address] Price, yearly with Dr. Muniz) Disposition/Orders: D/C to Home Scheduled Albuterol Sulfate (Ventolin Hfa Inhaler) 2 PUFF INH QID (Reported) Fluticasone Propionate (Flovent 110MCG Hfa) 2 PUFF IH BID (Reported) Insulin Detemir (Levemir) 70 UNIT SQ QHS (Reported) Losartan Potassium (Losartan Potassium) 100 MG PO DAILY (Reported) Tiotropium Br/Olodaterol HCl (Stiolto Respimat Inhal [place]) 4 GM IH DAILY ( Reported) Miscellaneous Medications Insulin Aspart (Novolog Flexpen) 1 UNIT SQ (Reported) Angélica BARRETT MD Nov 12, 2016 19:22
== END 2016-11-12 16:20 | disposition home or self-care (01) | DRG 291 ==
LOC: ER 17:53 → 2 NORTH 19:14
PROVIDERS: ADMIT Family Medicine; ATTEND Family Medicine
PROC: 5A09357 Assistance with Respiratory Ventilation, Less than 24 Consecutive Hours, Continuous Positive Airway Pressure (ICD-10-PCS; principal; 2016-11-10)
DX: I50.21 Acute systolic (congestive) heart failure (principal); J96.01 Acute respiratory failure with hypoxia; J44.1 Chronic obstructive pulmonary disease with (acute) exacerbation; J45.901 Unspecified asthma with (acute) exacerbation; I42.9 Cardiomyopathy, unspecified; I11.0 Hypertensive heart disease with heart failure; E11.9 Type 2 diabetes mellitus without complications; E78.00 Pure hypercholesterolemia, unspecified; E78.5 Hyperlipidemia, unspecified; Z79.4 Long term (current) use of insulin
CPT/HCPCS: 36415; 36600; 71010; 80048; 80053; 82805; 82947; 83880; 84484; 85007; 85027; 87040; 87804; 93005; 93306; 94640; 94660; 94760; 96374; 96375; J1815; J1956; J2930; J7620; 99285-25

== ENCOUNTER 2016-12-14 04:59 | Inpatient (IN) | payer OTHER ==
[~2016-12-14] VITALS: Ht 175.3 cm; Wt 103.4 kg
[2016-12-14] VITALS (10 sets, daily range): BP systolic 143–166; BP diastolic 45–94
[~2016-12-14 04:59] MED LIST: FLUT12AE IH; INSU100I17 SQ; INSU100V13 SQ; LOSA25TA4 PO; TIOT4MIS3 IH; VENTOLIN HFA18 GM INH
[2016-12-14] MEDS: NITROGLYCERIN PREMIX 250 ML IV PRN ×2 (05:15→11:51)
[2016-12-14 05:16] LABS: BASO # 0.1 x10^3/uL (0.0-0.2); BASO % 0 % (0-3); EOS % 4 % (0-3); HEMATOCRIT 41.9 % (39.0-53.0); HEMOGLOBIN 13.1 g/dL (13.0-17.5); LYMPH # 2.7 x10^3/uL (1.0-4.8); LYMPH % 18 % (24-48); MEAN CORPUSCULAR HEMOGLOBIN 26 pg (25-35); MEAN CORPUSCULAR HGB CONC 31 g/dL (31-37); MEAN CORPUSCULAR VOLUME 84 fL (79-100); MONO % 12 % (0-9); NEUT % 67 % (31-73); PLATELET COUNT 252 x10^3/uL (140-400); RED BLOOD COUNT 4.99 x10^6/uL (4.30-5.70); RED CELL DISTRIBUTION WIDTH 15.1 % (11.5-14.5)
[2016-12-14] MEDS ORDERED: IPRATRPIUM/ALBUTEROL 0.5/2.5MG 3 ML NEBU. NEB ONE (05:30)
[2016-12-14 05:32] LABS: CALCIUM 8.5 mg/dL (8.5-10.1); CREATININE 1.3 mg/dL (0.7-1.3); GFR 55.2; POTASSIUM 4.9 mmol/L (3.5-5.1)
[2016-12-14 05:39] LABS: ALBUMIN 3.8 g/dL (3.4-5.0); TOTAL BILIRUBIN 0.8 mg/dL (0.2-1.0); TOTAL PROTEIN 7.5 g/dL (6.4-8.2)
--- NOTE | 2016-12-14 05:47 | PHYS DOC ---
Past Medical History Past Medical History: Asthma, COPD, Diabetes-Type II, High Cholesterol, Hypertension Past Surgical History: Other Additional Past Surgical Histo: Right shoulder Alcohol Use: None Drug Use: None Adult General Chief Complaint Chief Complaint: SHORTNESS OF BREATH HPI HPI Patient is a 66 year old male who presents with complaint of severe shortness of breath. Patient was brought to emergency department by EMS. Patient found to have low oxygen saturation in the lower 70s and was started on CPAP therapy. The patient has history of COPD and CHF. Patient states that his symptoms started worsening yesterday. Patient is currently speaking in one-word sentences and is gasping to breathe. Patient denies any fevers. Patient does admit to worsening swelling in his legs and abdomen over the past few days. Patient follows a Dr. Barrett for primary care. Patient denies any chest pain or abdominal pain currently. Review of Systems Review of Systems Constitutional: Denies fever or chills [] Eyes: Denies change in visual acuity, redness, or eye pain [] HENT: Denies nasal congestion or sore throat [] Respiratory: Shortness of breath [] Cardiovascular: Edema, denies chest pain [] GI: Denies abdominal pain, nausea, vomiting, bloody stools or diarrhea [] : Denies dysuria or hematuria [] Musculoskeletal: Denies back pain or joint pain [] Integument: Denies rash or skin lesions [] Neurologic: Denies headache, focal weakness or sensory changes [] Current Medications Current Medications Current Medications Medications (Trade) Dose Ordered Sig/Jenny Start Time Stop Time Status Last Admin Dose Admin Albuterol/ Ipratropium (Duoneb) 6 ml 1X ONCE 12/14/16 05:30 12/14/16 05:31 DC 12/14/16 05:17 6 ML Nitroglycerin/ Dextrose (Nitroglycerin Drip) 250 ml @ 0 mls/hr CONT PRN 12/14/16 05:15 12/14/16 05:15 12 MLS/HR Allergies Allergies Allergies Coded Allergies Type Severity Reaction Last Updated Verified No Known Drug Allergies 06/01/14 No Physical Exam Physical Exam Constitutional: Alert, afebrile, appears in severe respiratory distress. [] HENT: Normocephalic, atraumatic, bilateral external ears normal, oropharynx moist, cyanosis of lips and tongue, no oral exudates, nose normal. [] Eyes: PERRLA, EOMI, conjunctiva normal, no discharge. [] Neck: Normal range of motion, no tenderness, supple, no stridor. [] Cardiovascular: Tachycardia, regular rhythm, no murmur [] Lungs & Thorax: Accessory muscle usage present, severe restriction of air movement bilaterally, rales bilaterally, faint expiratory wheezes [] Abdomen: Bowel sounds normal, soft, no tenderness, no masses, no pulsatile masses. [] Skin: Cool, mottled appearance, no rash. [] Back: No tenderness, no CVA tenderness. [] Extremities: No tenderness, no cyanosis, no clubbing, ROM intact, 2+ pitting edema in the bilateral lower extremities. [] Neurologic: Alert and oriented X 3, normal motor function, normal sensory function, no focal deficits noted. [] Current Patient Data Vital Signs Vital Signs Date Time Temp Pulse Resp B/P Pulse Ox O2 Delivery O2 Flow Rate FiO2 12/14/16 05:27 100 BiPAP/CPAP 12/14/16 05:19 98.1 92 26 194/80 5 98.1 Lab Values Laboratory Tests Test 12/14/16 05:05 White Blood Count 15.0x10^3/uL (4.0-11.0) H Red Blood Count 4.99x10^6/uL (4.30-5.70) Hemoglobin 13.1g/dL (13.0-17.5) Hematocrit 41.9% (39.0-53.0) Mean Corpuscular Volume 84fL (79-100) Mean Corpuscular Hemoglobin 26pg (25-35) Mean Corpuscular Hemoglobin Concent 31g/dL (31-37) Red Cell Distribution Width 15.1% (11.5-14.5) H Platelet Count 252x10^3/uL (140-400) Neutrophils (%) (Auto) 67% (31-73) Lymphocytes (%) (Auto) 18% (24-48) L Monocytes (%) (Auto) 12% (0-9) H Eosinophils (%) (Auto) 4% (0-3) H Basophils (%) (Auto) 0% (0-3) Neutrophils # (Auto) 10.0x10^3uL (1.8-7.7) H Lymphocytes # (Auto) 2.7x10^3/uL (1.0-4.8) Monocytes # (Auto) 1.7x10^3/uL (0.0-1.1) H Eosinophils # (Auto) 0.5x10^3/uL (0.0-0.7) Basophils # (Auto) 0.1x10^3/uL (0.0-0.2) Sodium Level 142mmol/L (136-145) Potassium Level 4.9mmol/L (3.5-5.1) Chloride Level 103mmol/L (98-107) Carbon Dioxide Level 28mmol/L (21-32) Anion Gap 11 (6-14) Blood Urea Nitrogen 22mg/dL (8-26) Creatinine 1.3mg/dL (0.7-1.3) Estimated GFR (Cockcroft-Gault) 55.2 BUN/Creatinine Ratio 17 (6-20) Glucose Level 257mg/dL (70-99) H Lactic Acid Level 3.9mmol/L (0.4-2.0) H Calcium Level 8.5mg/dL (8.5-10.1) Total Bilirubin 0.8mg/dL (0.2-1.0) Aspartate Amino Transferase (AST) 40U/L (15-37) H Alanine Aminotransferase (ALT) 52U/L (16-63) Alkaline Phosphatase 86U/L (46-116) Creatine Kinase 560U/L (39-308) H Creatine Kinase MB (Mass) 28.0ng/mL (0.0-3.6) H Creatine Kinase MB Relative Index 5.0% (0-4) H Troponin I Quantitative 1.437ng/mL (0.000-0.055) JJ-[id number]-I-Type Natriuretic Peptide 2255pg/mL (0-124) H Total Protein 7.5g/dL (6.4-8.2) Albumin 3.8g/dL (3.4-5.0) Albumin/Globulin Ratio 1.0 (1.0-1.7) Laboratory Tests 12/14/16 05:05 Laboratory Tests 12/14/16 05:05 EKG EKG Interpreted by me: Heart rate 97, sinus tachycardia, normal intervals, left axis deviation, no acute ST/T-wave abnormalities present [] Radiology/Procedures Radiology/Procedures One view AP chest x-ray interpreted by me: Pulmonary edema present, small bilateral pleural effusions, cardiomegaly [] Course & Med Decision Making Course & Med Decision Making Pertinent Labs and Imaging studies reviewed. (See chart for details) The patient was transitioned to BiPAP therapy immediately upon arrival in the emergency department. Due to presence of elevated blood pressure and edema, the patient appears to be in acute congestive heart failure exacerbation. Patient's chest x-ray confirms this with the presence of pulmonary edema. After initiation of BiPAP and nitroglycerin drip, the patient is breathing much easier and patient's heart rate has improved. Patient also found have elevated troponin level and elevated lactic acid level likely due to prolonged hypoxia from patient's heart failure. This is expected to improve with the patient's current treatment.The patient will be admitted to the hospital for further treatment. I spoke with Dr. Mendieta who was on-call for Dr. Barrett and she accepted care patient in hospital. I also spoke with Dr. Price of cardiology who agreed to follow patient in hospital. Critical care time excluding procedures: 45 minutes Dragon Disclaimer Dragon Disclaimer This electronic medical record was generated, in whole or in part, using a voice recognition dictation system. Departure Departure Impression: Primary Impression: Acute on chronic respiratory failure Additional Impressions: Acute on chronic diastolic CHF (congestive heart failure) COPD exacerbation Cardiac ischemia Disposition: ADMITTED INPATIENT Admitting Physician: Duc Woodson Condition: GUARDED Referrals: RUDOLPH BARRETT MD (PCP) Problem Qualifiers Primary Impression: Acute on chronic respiratory failure Respiratory failure complication: hypoxia Qualified Code: J96.21 - Acute and chronic respiratory failure with hypoxia INGA AVELAR MD Dec 14, 2016 05:47
[2016-12-14 05:54] LABS: BILIRUBIN,URINE NEGATIVE (NEG); GLUCOSE,URINE 100 mg/dL (NEG); NITRITE,URINE NEGATIVE (NEG); PROTEIN,URINE 30 mg/dL (NEG-TRACE); UROBILINOGEN,URINE 0.2 mg/dL (0.2 mg/dL)
[2016-12-14] MEDS ORDERED: ONDANSETRON PF 4 MG/2 ML VIAL. IV PRN (06:15)
[2016-12-14 06:21] LABS: BACTERIA,URINE 0 /HPF (0-FEW); RBC,URINE 0 /HPF (0-2); SQUAMOUS EPITHELIAL CELL,UR FEW /LPF; WBC,URINE OCC /HPF (0-4)
[2016-12-14 06:23] LABS: HCO3 ABG 27 mmol/L (21-28); PCO2 ABG 49 mmHg (35-46); PO2 ABG 91 mmHg (65-108); SAT O2 ABG 96 % (92-99)
[2016-12-14 06:28] LABS: PH ABG 7.36 (7.35-7.45)
[2016-12-14] MEDS ORDERED: FUROSEMIDE 40 MG/4 ML VIAL. IVP ONE (06:30)
[2016-12-14] MEDS ORDERED: IV NORMAL SALINE 1000ML BAG 1,000 ML IV SCH (06:30)
--- NOTE | 2016-12-14 06:33 | EKG ---
[facility] [address] [place] [address] Test Date: 2016-12-14 Test Time: 05:12:40 Pat Name: ALAYNA XAVIER Department: Room: 114 1 Gender: M [employer]: : [id number] Requested By: INGA AVELAR Order Number: [id number] Reading MD: Luma Moreno Measurements Intervals [place] Rate: 97 P: 90 VA: 210 QRS: -49 QRSD: 116 T: 92 QT: 348 QTc: 446 Interpretive Statements SINUS RHYTHM PROLONGED VA INTERVAL ABNORMAL LEFT AXIS DEVIATION QRS(T) CONTOUR ABNORMALITY CONSISTENT WITH ANTEROSEPTAL INFARCT PROBABLY OLD T ABNORMALITY IN HIGH LATERAL LEADS Electronically Signed On 12-19-2016 12:53:32 CDT by Luma Moreno
--- NOTE | 2016-12-14 07:09 | ACF ---
Admission Forms Criteria RESPIRATORY FAILURE [facility] Clinical Indications for Admission to Inpatient Care (Place 'X' for any and all applicable criteria): Hospital admission is needed for appropriate care of the patient because of acute respiratory failure or insufficiency as indicated by ANY ONE of the following(1)(2)(3)(4)(5)(6)(7)(8): [X]I. Mechanical ventilation needed (acute invasive or noninvasive) [ ]II. Severe ventilation deficit as indicated by ANY ONE of the following (9) [ ]a) Respiratory acidosis (pH less than 7.32 and partial pressure of carbon dioxide greater than 40 mm Hg (5.3 kPa)) [ ]b) Partial pressure of carbon dioxide greater than 44 mm Hg (5.9 kPa ) (new) [ ]c) Airflow measurements less than 25% of predicted (eg, peak expiratory flow rate less than 100 L/minute) [ ]d) Forced vital capacity less than 15 mL/kg of ideal body weight, or 50% decrease in vital capacity from baseline [ ]III. Noncardiac pulmonary edema not resolving with rapid emergency treatment (8) [ ]IV. Severe respiratory distress as indicated by ANY ONE of the following: [ ]a) Severe tachypnea (respiratory rate greater than 30, greater than 45 for 6-month-old, greater than 60 for ) [ ]b) Severe hypoxemia (partial pressure of oxygen less than 50 mm Hg ( 6.7 kPa) on greater than 50% oxygen or partial pressure of oxygen to FIO2 ratio less than 200) [ ]c) Mental status deterioration from respiratory disease [ ]V. Airway obstruction or inadequate protection [A](10)(11) The original [employer] content created by [employer] has been revised. The portions of the content which have been revised are identified through the use of italic text or in bold, and [employer] has neither reviewed nor approved the modified material. All other unmodified content is copyright [employer]. Please see references footnoted in the original [employer] edition 2016 Admission Criteria Met?: Yes RYANN CAMACHO Dec 14, 2016 07:09
--- NOTE | 2016-12-14 07:15 | RAD ---
Portable chest, 12/14/2016: History: Respiratory failure Comparison is made to a study from 11/10/2016. The heart is within normal limits in size. The pulmonary vascularity is prominent. There is linear scarring in the left base. No pulmonary consolidation is seen. There is no evidence of pleural fluid. Mild spurring is present in the spine. IMPRESSION: Borderline vascular congestion.
[2016-12-14] MEDS ORDERED: DEXTROSE 50% 25 GM / 50ML DISP.SYRIN. IV PRN (09:15)
[2016-12-14] MEDS ORDERED: ALBUTEROL SULFATE 2.5 MG/3 ML NEBU. NEB PRN (09:15)
[2016-12-14] MEDS ORDERED: LOSARTAN POTASSIUM 25 MG TABLET. PO SCH (09:15)
--- NOTE | 2016-12-14 09:18 | PDOC1 ---
History and Physical Date of Admission Date of Admission DATE: 12/14/16 Identification/Chief Complaint Chief Complaint Couldn't breathe Problems: Source Source: Patient History of Present Illness History of Present Illness Pt states that he has had increased difficulty breathing over the past couple of days. He was going to try and wait, but got significantly worse over night and had to call EMS. States that he could tell he was retaining fluids. Past Medical History Cardiovascular: CHF, HTN Pulmonary: COPD GI: No pertinent hx Heme/Onc: No pertinent hx Hepatobiliary: No pertinent hx Psych: No pertinent hx Musculoskeletal: Osteoarthritis Rheumatologic: No pertinent hx Infectious disease: No pertinent hx ENT: No pertinent hx Renal/: No pertinent hx Endocrine: Diabetes Dermatology: No pertinent hx Past Surgical History Past Surgical History: Other (Rotator Cuff) Family History Family History: Heart Disease Social History Smoke: Quit ALCOHOL: none Drugs: None Current Problem List Problem List Problems Medical Problems: (1) Acute on chronic diastolic CHF (congestive heart failure) Status: Acute (2) Acute on chronic respiratory failure Status: Acute (3) Cardiac ischemia Status: Acute (4) COPD exacerbation Status: Acute Problems: Current Medications Current Medications Current Medications Nitroglycerin/ Dextrose (Nitroglycerin Drip) 250 ml @ 0 mls/hr CONT PRN IV SEE I/O RECORD Last administered on 12/14/16 05:15; Start 12/14/16 at 05:15 Albuterol/ Ipratropium (Duoneb) 6 ml 1X ONCE NEB Last administered on 05:17; Start 12/14/16 at 05:30; Stop 12/14/16 at 05:31; Status DC Furosemide (Lasix) 60 mg 1X ONCE IVP Last administered on 12/14/16 06:21; Start 12/14/16 at 06:30; Stop 12/14/16 at 06:31; Status DC Ondansetron HCl 4 mg 4 mg PRN Q8HRS PRN IV NAUSEA/VOMITING; Start 12/14/16 at 06:15; Stop 12/15/16 at 06:14 Sodium Chloride (Iv Sodium Chloride 0.9% 1000ml Bag) 1,000 ml @ 30 mls/hr Q24H IV Last administered on 12/14/16 06:21; Start 12/14/16 at 06:30; Stop at 06:29 Acetaminophen (Tylenol) 650 mg PRN Q4HRS PRN PO FEVER; Start 12/14/16 at 06:15 ; Stop 12/15/16 at 06:14 Albuterol/ Ipratropium (Duoneb) 3 ml RTQID NEB ; Start 12/14/16 at 08:00; Stop 12/15/16 at 07:59 Active Scripts Active Reported Stiolto Respimat Inhal [place] (Tiotropium Br/Olodaterol HCl) 4 Gm Mist.inhal 4 Gm IH DAILY Novolog Flexpen (Insulin Aspart) 100 Unit/1 Ml Insuln.pen 1 Unit SQ Ventolin Hfa Inhaler (Albuterol Sulfate) 18 Gm Hfa.aer.ad 2 Puff INH QID Flovent 110MCG Hfa (Fluticasone Propionate) 12 Gm Aer.w.adap 2 Puff IH BID Losartan Potassium 25 Mg Tablet 100 Mg PO DAILY Levemir (Insulin Detemir) 100 Unit/1 Ml Vial 70 Unit SQ QHS Allergies Allergies: Coded Allergies: No Known Drug Allergies (Unverified , 06/01/14) ROS General: No: Chills, Night Sweats PSYCHOLOGICAL ROS: No: Anxiety, Depression Eyes: No Decreased vision, No Eye Pain HEENT: No: Nasal congestion, Sore Throat ALLERGY AND IMMUNOLOGY: No: Hives, Post Nasal Drip Hematological and Lymphatic: No: Bleeding Problems, Blood Clots Respiratory: YES: Orthopnea, Shortness of breath, No: Cough, Sputum Changes Cardiovascular: yes Edema, No Chest Pain Gastrointestinal: Yes Abdominal Pain, No Constipation, No Diarrhea, No Nausea, No Vomiting Genitourinary: No Dysuria, No Urgency Musculoskeletal: No Joint Pain, No Muscle Pain Neurological: No Impaired Coord/balance, No Memory Loss, No Numbness/Tingling Skin: No Rash, No Skin Lesion Changes Physical Exam General: Alert, Oriented X3, Cooperative, mild distress, Other (speaking in 4- 5 word sentences before catching breath) HEENT: Atraumatic, PERRLA, EOMI, Mucous membr. moist/pink Lungs: Clear to auscultation, Normal air movement Heart: RRR, no rubs, no gallops, no murmurs Abdomen: Normal bowel sounds, Other (distended) Extremities: No clubbing, No cyanosis, Other (1+ edema LE bilaterally, worse on right) Skin: No rashes, No breakdown, No significant lesion Neuro: Normal tone, Sensation intact, Cranial nerves 3-12 NL Psych/Mental Status: Mental status NL, Mood NL Vitals Vitals Vital Signs Date Time Temp Pulse Resp B/P Pulse Ox O2 Delivery O2 Flow Rate FiO2 12/14/16 06:20 74 16 151/69 99 BiPAP/CPAP 12/14/16 05:19 98.1 5 98.1 Labs Labs Laboratory Tests Test 12/14/16 05:05 12/14/16 05:35 12/14/16 06:20 White Blood Count 15.0x10^3/uL (4.0-11.0) Red Blood Count 4.99x10^6/uL (4.30-5.70) Hemoglobin 13.1g/dL (13.0-17.5) Hematocrit 41.9% (39.0-53.0) Mean Corpuscular Volume 84fL (79-100) Mean Corpuscular Hemoglobin 26pg (25-35) Mean Corpuscular Hemoglobin Concent 31g/dL (31-37) Red Cell Distribution Width 15.1% (11.5-14.5) Platelet Count 252x10^3/uL (140-400) Neutrophils (%) (Auto) 67% (31-73) Lymphocytes (%) (Auto) 18% (24-48) Monocytes (%) (Auto) 12% (0-9) Eosinophils (%) (Auto) 4% (0-3) Basophils (%) (Auto) 0% (0-3) Neutrophils # (Auto) 10.0x10^3uL (1.8-7.7) Lymphocytes # (Auto) 2.7x10^3/uL (1.0-4.8) Monocytes # (Auto) 1.7x10^3/uL (0.0-1.1) Eosinophils # (Auto) 0.5x10^3/uL (0.0-0.7) Basophils # (Auto) 0.1x10^3/uL (0.0-0.2) Sodium Level 142mmol/L (136-145) Potassium Level 4.9mmol/L (3.5-5.1) Chloride Level 103mmol/L (98-107) Carbon Dioxide Level 28mmol/L (21-32) Anion Gap 11 (6-14) Blood Urea Nitrogen 22mg/dL (8-26) Creatinine 1.3mg/dL (0.7-1.3) Estimated GFR (Cockcroft-Gault) 55.2 BUN/Creatinine Ratio 17 (6-20) Glucose Level 257mg/dL (70-99) Lactic Acid Level 3.9mmol/L (0.4-2.0) Calcium Level 8.5mg/dL (8.5-10.1) Total Bilirubin 0.8mg/dL (0.2-1.0) Aspartate Amino Transf (AST/SGOT) 40U/L (15-37) Alanine Aminotransferase (ALT/SGPT) 52U/L (16-63) Alkaline Phosphatase 86U/L (46-116) Creatine Kinase 560U/L (39-308) Creatine Kinase MB (Mass) 28.0ng/mL (0.0-3.6) Creatine Kinase MB Relative Index 5.0% (0-4) Troponin I Quantitative 1.437ng/mL (0.000-0.055) [id number]-Type Natriuretic Peptide 2255pg/mL (0-124) Total Protein 7.5g/dL (6.4-8.2) Albumin 3.8g/dL (3.4-5.0) Albumin/Globulin Ratio 1.0 (1.0-1.7) Urine Collection Type Unknown Urine Color Yellow Urine Clarity Clear Urine pH 5.0 Urine Specific [place] 1.025 Urine Protein 30mg/dL (NEG-TRACE) Urine Glucose (UA) 100mg/dL (NEG) Urine Ketones (Stick) Negativemg/dL (NEG) Urine Blood Negative (NEG) Urine Nitrite Negative (NEG) Urine Bilirubin Negative (NEG) Urine Urobilinogen Dipstick 0.2mg/dL (0.2 mg/dL) Urine Leukocyte Esterase Negative (NEG) Urine RBC 0/HPF (0-2) Urine WBC Occ/HPF (0-4) Urine Squamous Epithelial Cells Few/LPF Urine Bacteria 0/HPF (0-FEW) Urine Hyaline Casts Occasional/HPF Urine Mucus Mod/LPF O2 Saturation 96% (92-99) Arterial Blood pH 7.36 (7.35-7.45) Arterial Blood pCO2 at Patient Temp 49mmHg (35-46) Arterial Blood pO2 at Patient Temp 91mmHg (65-108) Arterial Blood HCO3 27mmol/L (21-28) Arterial Blood Base Excess 1mmol/L (-3-3) FiO2 35.0 Laboratory Tests Test 12/14/16 05:05 12/14/16 05:35 12/14/16 06:20 White Blood Count 15.0x10^3/uL (4.0-11.0) Red Blood Count 4.99x10^6/uL (4.30-5.70) Hemoglobin 13.1g/dL (13.0-17.5) Hematocrit 41.9% (39.0-53.0) Mean Corpuscular Volume 84fL (79-100) Mean Corpuscular Hemoglobin 26pg (25-35) Mean Corpuscular Hemoglobin Concent 31g/dL (31-37) Red Cell Distribution Width 15.1% (11.5-14.5) Platelet Count 252x10^3/uL (140-400) Neutrophils (%) (Auto) 67% (31-73) Lymphocytes (%) (Auto) 18% (24-48) Monocytes (%) (Auto) 12% (0-9) Eosinophils (%) (Auto) 4% (0-3) Basophils (%) (Auto) 0% (0-3) Neutrophils # (Auto) 10.0x10^3uL (1.8-7.7) Lymphocytes # (Auto) 2.7x10^3/uL (1.0-4.8) Monocytes # (Auto) 1.7x10^3/uL (0.0-1.1) Eosinophils # (Auto) 0.5x10^3/uL (0.0-0.7) Basophils # (Auto) 0.1x10^3/uL (0.0-0.2) Sodium Level 142mmol/L (136-145) Potassium Level 4.9mmol/L (3.5-5.1) Chloride Level 103mmol/L (98-107) Carbon Dioxide Level 28mmol/L (21-32) Anion Gap 11 (6-14) Blood Urea Nitrogen 22mg/dL (8-26) Creatinine 1.3mg/dL (0.7-1.3) Estimated GFR (Cockcroft-Gault) 55.2 BUN/Creatinine Ratio 17 (6-20) Glucose Level 257mg/dL (70-99) Lactic Acid Level 3.9mmol/L (0.4-2.0) Calcium Level 8.5mg/dL (8.5-10.1) Total Bilirubin 0.8mg/dL (0.2-1.0) Aspartate Amino Transf (AST/SGOT) 40U/L (15-37) Alanine Aminotransferase (ALT/SGPT) 52U/L (16-63) Alkaline Phosphatase 86U/L (46-116) Creatine Kinase 560U/L (39-308) Creatine Kinase MB (Mass) 28.0ng/mL (0.0-3.6) Creatine Kinase MB Relative Index 5.0% (0-4) Troponin I Quantitative 1.437ng/mL (0.000-0.055) MV-Nbd-I-Type Natriuretic Peptide 2255pg/mL (0-124) Total Protein 7.5g/dL (6.4-8.2) Albumin 3.8g/dL (3.4-5.0) Albumin/Globulin Ratio 1.0 (1.0-1.7) Urine Collection Type Unknown Urine Color Yellow Urine Clarity Clear Urine pH 5.0 Urine Specific [place] 1.025 Urine Protein 30mg/dL (NEG-TRACE) Urine Glucose (UA) 100mg/dL (NEG) Urine Ketones (Stick) Negativemg/dL (NEG) Urine Blood Negative (NEG) Urine Nitrite Negative (NEG) Urine Bilirubin Negative (NEG) Urine Urobilinogen Dipstick 0.2mg/dL (0.2 mg/dL) Urine Leukocyte Esterase Negative (NEG) Urine RBC 0/HPF (0-2) Urine WBC Occ/HPF (0-4) Urine Squamous Epithelial Cells Few/LPF Urine Bacteria 0/HPF (0-FEW) Urine Hyaline Casts Occasional/HPF Urine Mucus Mod/LPF O2 Saturation 96% (92-99) Arterial Blood pH 7.36 (7.35-7.45) Arterial Blood pCO2 at Patient Temp 49mmHg (35-46) Arterial Blood pO2 at Patient Temp 91mmHg (65-108) Arterial Blood HCO3 27mmol/L (21-28) Arterial Blood Base Excess 1mmol/L (-3-3) FiO2 35.0 VTE Prophylaxis Ordered VTE Prophylaxis Devices: Yes VTE Pharmacological Prophylaxi: No Assessment/Plan Assessment/Plan Pt is a 66yo CM admitted for acute on chronic respiratory failure 1)Acute on Chronic Respiratory failure- 2/2 CHF exacerbation, improved with Lasix. Pt off Bipap. Cardiology and Pulmonology consulted. Pt started on Lasix 20mg qday 2)Accelerated HTN- pt was on Nitro gtt, improved. Will restart pt's Losartan 100mg qday 3)Elevated troponin- likely 2/2 above, but more elevated than last admission. Pt has risk factors, do not see recent cardiac workup. Cardiology following. Pt without chest pain 4)DM2- HbA1C pending. Pt continued on home insulin of Levemir 70 units QHS, Novolog 25units QAC and SSI. If pt remains NPO, will need to adjust 5)Leukocytosis- pt afebrile and not having symptoms of infection. CTM 6)Elevated AST- likely 2/2 hepatic congestion, CTM JUAN VALENCIA MD Dec 14, 2016 09:18
[2016-12-14] MEDS: FUROSEMIDE 20 MG TABLET PO SCH (10:04)
[2016-12-14] MEDS ORDERED: INSULIN ASPART 300 UNITS/3 ML INSULN.PEN SQ SCH (11:30)
[2016-12-14] MEDS: INSULIN ASPART 300 UNITS/3 ML INSULN.PEN SQ SCH ×4 (11:56→17:50)
--- NOTE | 2016-12-14 12:33 | PDOC2 ---
CONSULT Date of Consult Date of Consult DATE: 12/14/16 TIME: 12:17 Reason for Consult Reason for Consult: Shortness of breathe Identification/Chief Complaint Chief Complaint Cant' breathe Source Source: Chart review, Patient History of Present Illness Reason for Visit: 66 yo male presented to ED with progressively shortening of breath over the past 2 days. O2 sat was in the low 70s on presentation. Patient complained of worsening edema in legs and abdomen as well. PMH significant for COPD, CHF, and HTN. Patient mentions that he was recently in the hospital for the same symptoms about 4 weeks ago. EKG showed sinus tachycardia and no acute ST wave abnormalities. Chest xray in the ED showed pulmonary edema. Patient was placed on cpap, given lasix, and admitted. Since admission, patient's breathing has improved 60%. Admits to continued cough and improving edema. Patient admits to periodic heart palpitations and cramping muscular like chest pain as well that he attributes to the continued coughing. He denies any headaches. Past Medical History Cardiovascular: CHF, HTN Pulmonary: COPD GI: No pertinent hx Heme/Onc: No pertinent hx Hepatobiliary: No pertinent hx Psych: No pertinent hx Musculoskeletal: Osteoarthritis Rheumatologic: No pertinent hx Infectious disease: No pertinent hx ENT: No pertinent hx Renal/: No pertinent hx Endocrine: Diabetes Dermatology: No pertinent hx Past Surgical History Past Surgical History: Other (Rotator Cuff) Family History Family History: Heart Disease Social History Quit ALCOHOL: none Drugs: None Current Problem List Problem List Problems Medical Problems: (1) Acute on chronic diastolic CHF (congestive heart failure) Status: Acute (2) Acute on chronic respiratory failure Status: Acute (3) Cardiac ischemia Status: Acute (4) COPD exacerbation Status: Acute Current Medications Current Medications Current Medications Nitroglycerin/ Dextrose (Nitroglycerin Drip) 250 ml @ 0 mls/hr CONT PRN IV SEE I/O RECORD Last administered on 12/14/16 05:15; Start 12/14/16 at 05:15 Albuterol/ Ipratropium (Duoneb) 6 ml 1X ONCE NEB Last administered on 05:17; Start 12/14/16 at 05:30; Stop 12/14/16 at 05:31; Status DC Furosemide (Lasix) 60 mg 1X ONCE IVP Last administered on 12/14/16 06:21; Start 12/14/16 at 06:30; Stop 12/14/16 at 06:31; Status DC Ondansetron HCl 4 mg 4 mg PRN Q8HRS PRN IV NAUSEA/VOMITING; Start 12/14/16 at 06:15; Stop 12/15/16 at 06:14 Sodium Chloride (Iv Sodium Chloride 0.9% 1000ml Bag) 1,000 ml @ 30 mls/hr Q24H IV Last administered on 12/14/16 06:21; Start 12/14/16 at 06:30; Stop at 06:29 Acetaminophen (Tylenol) 650 mg PRN Q4HRS PRN PO FEVER; Start 12/14/16 at 06:15 ; Stop 12/15/16 at 06:14 Albuterol/ Ipratropium (Duoneb) 3 ml RTQID NEB ; Start 12/14/16 at 08:00; Stop 12/15/16 at 07:59 Fluticasone Propionate (Flonase) 2 spray DAILY NS ; Start 12/15/16 at 09:00 Non-Formulary Medication 4 gm DAILY IH ; Start 12/15/16 at 09:00; Status UNV Insulin Aspart (Novolog) 25 units TIDAC SQ ; Start 12/14/16 at 11:30; Stop 12/14 at 11:55; Status DC Losartan Potassium (Cozaar) 25 mg DAILY PO ; Start 12/15/16 at 09:00; Stop 12/15 at 09:00; Status DC Albuterol Sulfate (Ventolin Neb Soln) 2.5 mg PRN Q4HRS PRN NEB SHORTNESS OF BREATH; Start 12/14/16 at 09:15 Insulin Detemir (Levemir) 70 units QHS SQ ; Start 12/14/16 at 21:00 Losartan Potassium (Cozaar) 25 mg DAILY PO Last administered on 12/14/16 10:04 ; Start 12/14/16 at 09:15 Furosemide (Lasix) 20 mg DAILY PO Last administered on 12/14/16 10:04; Start 12/14/16 at 09:15 Insulin Aspart (Novolog) 0-7 UNITS TIDWMEALS SQ ; Start 12/14/16 at 12:00 Dextrose (Dextrose 50%-Water Syringe) 12.5 gm PRN Q15MIN PRN IV SEE COMMENTS; Start 12/14/16 at 09:15 Insulin Aspart (Novolog) 15 units TIDAC SQ Last administered on 12/14/16t 12:00 ; Start 12/14/16 at 12:00 Active Scripts Active Reported Stiolto Respimat Inhal [place] (Tiotropium Br/Olodaterol HCl) 4 Gm Mist.inhal 4 Gm IH DAILY Novolog Flexpen (Insulin Aspart) 100 Unit/1 Ml Insuln.pen 1 Unit SQ Ventolin Hfa Inhaler (Albuterol Sulfate) 18 Gm Hfa.aer.ad 2 Puff INH QID Flovent 110MCG Hfa (Fluticasone Propionate) 12 Gm Aer.w.adap 2 Puff IH BID Losartan Potassium 25 Mg Tablet 100 Mg PO DAILY Levemir (Insulin Detemir) 100 Unit/1 Ml Vial 70 Unit SQ QHS Allergies Allergies: Coded Allergies: No Known Drug Allergies (Unverified , 06/01/14) Physical Exam General: Alert, Oriented X3, Cooperative, No acute distress HEENT: Atraumatic, EOMI Heart: Regular rate, Other (irregularly irregular) Abdomen: Normal bowel sounds, No tenderness Extremities: No clubbing, Other (3+ pitting edema on R lower extremity, 2+ pitting edema on L lower extremity) Skin: No rashes, No significant lesion Neuro: Normal speech Psych/Mental Status: Mental status NL, Mood NL Vitals VITALS Vital Signs Date Time Temp Pulse Resp B/P Pulse Ox O2 Delivery O2 Flow Rate FiO2 12/14/16 11:00 82 22 154/91 96 Nasal Cannula 5.0 12/14/16 07:00 97.8 97.8 Labs Labs Laboratory Tests Test 12/14/16 05:05 12/14/16 05:35 12/14/16 06:20 12/14/16 09:05 White Blood Count 15.0x10^3/uL (4.0-11.0) Red Blood Count 4.99x10^6/uL (4.30-5.70) Hemoglobin 13.1g/dL (13.0-17.5) Hematocrit 41.9% (39.0-53.0) Mean Corpuscular Volume 84fL (79-100) Mean Corpuscular Hemoglobin 26pg (25-35) Mean Corpuscular Hemoglobin Concent 31g/dL (31-37) Red Cell Distribution Width 15.1% (11.5-14.5) Platelet Count 252x10^3/uL (140-400) Neutrophils (%) (Auto) 67% (31-73) Lymphocytes (%) (Auto) 18% (24-48) Monocytes (%) (Auto) 12% (0-9) Eosinophils (%) (Auto) 4% (0-3) Basophils (%) (Auto) 0% (0-3) Neutrophils # (Auto) 10.0x10^3uL (1.8-7.7) Lymphocytes # (Auto) 2.7x10^3/uL (1.0-4.8) Monocytes # (Auto) 1.7x10^3/uL (0.0-1.1) Eosinophils # (Auto) 0.5x10^3/uL (0.0-0.7) Basophils # (Auto) 0.1x10^3/uL (0.0-0.2) Sodium Level 142mmol/L (136-145) Potassium Level 4.9mmol/L (3.5-5.1) Chloride Level 103mmol/L (98-107) Carbon Dioxide Level 28mmol/L (21-32) Anion Gap 11 (6-14) Blood Urea Nitrogen 22mg/dL (8-26) Creatinine 1.3mg/dL (0.7-1.3) Estimated GFR (Cockcroft-Gault) 55.2 BUN/Creatinine Ratio 17 (6-20) Glucose Level 257mg/dL (70-99) Lactic Acid Level 3.9mmol/L (0.4-2.0) 2.2mmol/L (0.4-2.0) Calcium Level 8.5mg/dL (8.5-10.1) Total Bilirubin 0.8mg/dL (0.2-1.0) Aspartate Amino Transf (AST/SGOT) 40U/L (15-37) Alanine Aminotransferase (ALT/SGPT) 52U/L (16-63) Alkaline Phosphatase 86U/L (46-116) Creatine Kinase 560U/L (39-308) Creatine Kinase MB (Mass) 28.0ng/mL (0.0-3.6) Creatine Kinase MB Relative Index 5.0% (0-4) Troponin I Quantitative 1.437ng/mL (0.000-0.055) ZR-Jvq-M-Type Natriuretic Peptide 2255pg/mL (0-124) Total Protein 7.5g/dL (6.4-8.2) Albumin 3.8g/dL (3.4-5.0) Albumin/Globulin Ratio 1.0 (1.0-1.7) Urine Collection Type Unknown Urine Color Yellow Urine Clarity Clear Urine pH 5.0 Urine Specific [place] 1.025 Urine Protein 30mg/dL (NEG-TRACE) Urine Glucose (UA) 100mg/dL (NEG) Urine Ketones (Stick) Negativemg/dL (NEG) Urine Blood Negative (NEG) Urine Nitrite Negative (NEG) Urine Bilirubin Negative (NEG) Urine Urobilinogen Dipstick 0.2mg/dL (0.2 mg/dL) Urine Leukocyte Esterase Negative (NEG) Urine RBC 0/HPF (0-2) Urine WBC Occ/HPF (0-4) Urine Squamous Epithelial Cells Few/LPF Urine Bacteria 0/HPF (0-FEW) Urine Hyaline Casts Occasional/HPF Urine Mucus Mod/LPF O2 Saturation 96% (92-99) Arterial Blood pH 7.36 (7.35-7.45) Arterial Blood pCO2 at Patient Temp 49mmHg (35-46) Arterial Blood pO2 at Patient Temp 91mmHg (65-108) Arterial Blood HCO3 27mmol/L (21-28) Arterial Blood Base Excess 1mmol/L (-3-3) FiO2 35.0 Test 12/14/16 10:50 12/14/16 11:49 Troponin I Quantitative 4.505ng/mL (0.000-0.055) Glucose (Fingerstick) 157mg/dL (70-99) Laboratory Tests Test 12/14/16 05:05 12/14/16 05:35 12/14/16 06:20 12/14/16 09:05 White Blood Count 15.0x10^3/uL (4.0-11.0) Red Blood Count 4.99x10^6/uL (4.30-5.70) Hemoglobin 13.1g/dL (13.0-17.5) Hematocrit 41.9% (39.0-53.0) Mean Corpuscular Volume 84fL (79-100) Mean Corpuscular Hemoglobin 26pg (25-35) Mean Corpuscular Hemoglobin Concent 31g/dL (31-37) Red Cell Distribution Width 15.1% (11.5-14.5) Platelet Count 252x10^3/uL (140-400) Neutrophils (%) (Auto) 67% (31-73) Lymphocytes (%) (Auto) 18% (24-48) Monocytes (%) (Auto) 12% (0-9) Eosinophils (%) (Auto) 4% (0-3) Basophils (%) (Auto) 0% (0-3) Neutrophils # (Auto) 10.0x10^3uL (1.8-7.7) Lymphocytes # (Auto) 2.7x10^3/uL (1.0-4.8) Monocytes # (Auto) 1.7x10^3/uL (0.0-1.1) Eosinophils # (Auto) 0.5x10^3/uL (0.0-0.7) Basophils # (Auto) 0.1x10^3/uL (0.0-0.2) Sodium Level 142mmol/L (136-145) Potassium Level 4.9mmol/L (3.5-5.1) Chloride Level 103mmol/L (98-107) Carbon Dioxide Level 28mmol/L (21-32) Anion Gap 11 (6-14) Blood Urea Nitrogen 22mg/dL (8-26) Creatinine 1.3mg/dL (0.7-1.3) Estimated GFR (Cockcroft-Gault) 55.2 BUN/Creatinine Ratio 17 (6-20) Glucose Level 257mg/dL (70-99) Lactic Acid Level 3.9mmol/L (0.4-2.0) 2.2mmol/L (0.4-2.0) Calcium Level 8.5mg/dL (8.5-10.1) Total Bilirubin 0.8mg/dL (0.2-1.0) Aspartate Amino Transf (AST/SGOT) 40U/L (15-37) Alanine Aminotransferase (ALT/SGPT) 52U/L (16-63) Alkaline Phosphatase 86U/L (46-116) Creatine Kinase 560U/L (39-308) Creatine Kinase MB (Mass) 28.0ng/mL (0.0-3.6) Creatine Kinase MB Relative Index 5.0% (0-4) Troponin I Quantitative 1.437ng/mL (0.000-0.055) WJ-Lfh-S-Type Natriuretic Peptide 2255pg/mL (0-124) Total Protein 7.5g/dL (6.4-8.2) Albumin 3.8g/dL (3.4-5.0) Albumin/Globulin Ratio 1.0 (1.0-1.7) Urine Collection Type Unknown Urine Color Yellow Urine Clarity Clear Urine pH 5.0 Urine Specific [place] 1.025 Urine Protein 30mg/dL (NEG-TRACE) Urine Glucose (UA) 100mg/dL (NEG) Urine Ketones (Stick) Negativemg/dL (NEG) Urine Blood Negative (NEG) Urine Nitrite Negative (NEG) Urine Bilirubin Negative (NEG) Urine Urobilinogen Dipstick 0.2mg/dL (0.2 mg/dL) Urine Leukocyte Esterase Negative (NEG) Urine RBC 0/HPF (0-2) Urine WBC Occ/HPF (0-4) Urine Squamous Epithelial Cells Few/LPF Urine Bacteria 0/HPF (0-FEW) Urine Hyaline Casts Occasional/HPF Urine Mucus Mod/LPF O2 Saturation 96% (92-99) Arterial Blood pH 7.36 (7.35-7.45) Arterial Blood pCO2 at Patient Temp 49mmHg (35-46) Arterial Blood pO2 at Patient Temp 91mmHg (65-108) Arterial Blood HCO3 27mmol/L (21-28) Arterial Blood Base Excess 1mmol/L (-3-3) FiO2 35.0 Test 12/14/16 10:50 12/14/16 11:49 Troponin I Quantitative 4.505ng/mL (0.000-0.055) Glucose (Fingerstick) 157mg/dL (70-99) Assessment/Plan Assessment/Plan Assessment Anasarca Acute exacerbation of COPD, CHF HTN, controlled A fib, new onset Plan: 1. Limited echo ordered - determine if any changes since last admission - October 2016 LV EF of 45% with functioning atrial and mitral valves and mild LV dysfunction 2. Move from ICU to cardiac floor 3. Cath on Wednesday prospectively - BUN and Cr at baseline, troponins elevated 1.437, BNP elevated 2255, CK elevated 5609, AST/ALT wnl - Kidneys and liver seem not to be involved 4. Jacob rainey for afib Thank you for allowing me the pleasure of taking care of this patient! ELLE WEBER MD Dec 14, 2016 12:33
[2016-12-14] MEDS ORDERED: FUROSEMIDE 40 MG TABLET. PO ONE (12:45)
[2016-12-14] MEDS ORDERED: FUROSEMIDE 20 MG TABLET PO ONE (12:45)
[2016-12-14] MEDS: ACETAMINOPHEN 325 MG TABLET. PO PRN ×2 (13:12→20:35)
--- NOTE | 2016-12-14 14:17 | PDOC ---
PULMONARY PROGRESS NOTES Vitals Vital Signs Date Time Temp Pulse Resp B/P Pulse Ox O2 Delivery O2 Flow Rate FiO2 12/14/16 13:00 83 22 147/92 97 5.0 12/14/16 12:00 98.0 Nasal Cannula 98.0 Labs Laboratory Tests Test 12/14/16 05:05 12/14/16 05:35 12/14/16 06:20 12/14/16 09:05 White Blood Count 15.0x10^3/uL (4.0-11.0) Red Blood Count 4.99x10^6/uL (4.30-5.70) Hemoglobin 13.1g/dL (13.0-17.5) Hematocrit 41.9% (39.0-53.0) Mean Corpuscular Volume 84fL (79-100) Mean Corpuscular Hemoglobin 26pg (25-35) Mean Corpuscular Hemoglobin Concent 31g/dL (31-37) Red Cell Distribution Width 15.1% (11.5-14.5) Platelet Count 252x10^3/uL (140-400) Neutrophils (%) (Auto) 67% (31-73) Lymphocytes (%) (Auto) 18% (24-48) Monocytes (%) (Auto) 12% (0-9) Eosinophils (%) (Auto) 4% (0-3) Basophils (%) (Auto) 0% (0-3) Neutrophils # (Auto) 10.0x10^3uL (1.8-7.7) Lymphocytes # (Auto) 2.7x10^3/uL (1.0-4.8) Monocytes # (Auto) 1.7x10^3/uL (0.0-1.1) Eosinophils # (Auto) 0.5x10^3/uL (0.0-0.7) Basophils # (Auto) 0.1x10^3/uL (0.0-0.2) Sodium Level 142mmol/L (136-145) Potassium Level 4.9mmol/L (3.5-5.1) Chloride Level 103mmol/L (98-107) Carbon Dioxide Level 28mmol/L (21-32) Anion Gap 11 (6-14) Blood Urea Nitrogen 22mg/dL (8-26) Creatinine 1.3mg/dL (0.7-1.3) Estimated GFR (Cockcroft-Gault) 55.2 BUN/Creatinine Ratio 17 (6-20) Glucose Level 257mg/dL (70-99) Lactic Acid Level 3.9mmol/L (0.4-2.0) 2.2mmol/L (0.4-2.0) Calcium Level 8.5mg/dL (8.5-10.1) Total Bilirubin 0.8mg/dL (0.2-1.0) Aspartate Amino Transf (AST/SGOT) 40U/L (15-37) Alanine Aminotransferase (ALT/SGPT) 52U/L (16-63) Alkaline Phosphatase 86U/L (46-116) Creatine Kinase 560U/L (39-308) Creatine Kinase MB (Mass) 28.0ng/mL (0.0-3.6) Creatine Kinase MB Relative Index 5.0% (0-4) Troponin I Quantitative 1.437ng/mL (0.000-0.055) DH-Vhi-L-Type Natriuretic Peptide 2255pg/mL (0-124) Total Protein 7.5g/dL (6.4-8.2) Albumin 3.8g/dL (3.4-5.0) Albumin/Globulin Ratio 1.0 (1.0-1.7) Urine Collection Type Unknown Urine Color Yellow Urine Clarity Clear Urine pH 5.0 Urine Specific [place] 1.025 Urine Protein 30mg/dL (NEG-TRACE) Urine Glucose (UA) 100mg/dL (NEG) Urine Ketones (Stick) Negativemg/dL (NEG) Urine Blood Negative (NEG) Urine Nitrite Negative (NEG) Urine Bilirubin Negative (NEG) Urine Urobilinogen Dipstick 0.2mg/dL (0.2 mg/dL) Urine Leukocyte Esterase Negative (NEG) Urine RBC 0/HPF (0-2) Urine WBC Occ/HPF (0-4) Urine Squamous Epithelial Cells Few/LPF Urine Bacteria 0/HPF (0-FEW) Urine Hyaline Casts Occasional/HPF Urine Mucus Mod/LPF O2 Saturation 96% (92-99) Arterial Blood pH 7.36 (7.35-7.45) Arterial Blood pCO2 at Patient Temp 49mmHg (35-46) Arterial Blood pO2 at Patient Temp 91mmHg (65-108) Arterial Blood HCO3 27mmol/L (21-28) Arterial Blood Base Excess 1mmol/L (-3-3) FiO2 35.0 Test 12/14/16 10:50 12/14/16 11:49 Troponin I Quantitative 4.505ng/mL (0.000-0.055) Glucose (Fingerstick) 157mg/dL (70-99) Laboratory Tests Test 12/14/16 05:05 12/14/16 05:35 12/14/16 06:20 12/14/16 09:05 White Blood Count 15.0x10^3/uL (4.0-11.0) Red Blood Count 4.99x10^6/uL (4.30-5.70) Hemoglobin 13.1g/dL (13.0-17.5) Hematocrit 41.9% (39.0-53.0) Mean Corpuscular Volume 84fL (79-100) Mean Corpuscular Hemoglobin 26pg (25-35) Mean Corpuscular Hemoglobin Concent 31g/dL (31-37) Red Cell Distribution Width 15.1% (11.5-14.5) Platelet Count 252x10^3/uL (140-400) Neutrophils (%) (Auto) 67% (31-73) Lymphocytes (%) (Auto) 18% (24-48) Monocytes (%) (Auto) 12% (0-9) Eosinophils (%) (Auto) 4% (0-3) Basophils (%) (Auto) 0% (0-3) Neutrophils # (Auto) 10.0x10^3uL (1.8-7.7) Lymphocytes # (Auto) 2.7x10^3/uL (1.0-4.8) Monocytes # (Auto) 1.7x10^3/uL (0.0-1.1) Eosinophils # (Auto) 0.5x10^3/uL (0.0-0.7) Basophils # (Auto) 0.1x10^3/uL (0.0-0.2) Sodium Level 142mmol/L (136-145) Potassium Level 4.9mmol/L (3.5-5.1) Chloride Level 103mmol/L (98-107) Carbon Dioxide Level 28mmol/L (21-32) Anion Gap 11 (6-14) Blood Urea Nitrogen 22mg/dL (8-26) Creatinine 1.3mg/dL (0.7-1.3) Estimated GFR (Cockcroft-Gault) 55.2 BUN/Creatinine Ratio 17 (6-20) Glucose Level 257mg/dL (70-99) Lactic Acid Level 3.9mmol/L (0.4-2.0) 2.2mmol/L (0.4-2.0) Calcium Level 8.5mg/dL (8.5-10.1) Total Bilirubin 0.8mg/dL (0.2-1.0) Aspartate Amino Transf (AST/SGOT) 40U/L (15-37) Alanine Aminotransferase (ALT/SGPT) 52U/L (16-63) Alkaline Phosphatase 86U/L (46-116) Creatine Kinase 560U/L (39-308) Creatine Kinase MB (Mass) 28.0ng/mL (0.0-3.6) Creatine Kinase MB Relative Index 5.0% (0-4) Troponin I Quantitative 1.437ng/mL (0.000-0.055) CW-Qqv-M-Type Natriuretic Peptide 2255pg/mL (0-124) Total Protein 7.5g/dL (6.4-8.2) Albumin 3.8g/dL (3.4-5.0) Albumin/Globulin Ratio 1.0 (1.0-1.7) Urine Collection Type Unknown Urine Color Yellow Urine Clarity Clear Urine pH 5.0 Urine Specific [place] 1.025 Urine Protein 30mg/dL (NEG-TRACE) Urine Glucose (UA) 100mg/dL (NEG) Urine Ketones (Stick) Negativemg/dL (NEG) Urine Blood Negative (NEG) Urine Nitrite Negative (NEG) Urine Bilirubin Negative (NEG) Urine Urobilinogen Dipstick 0.2mg/dL (0.2 mg/dL) Urine Leukocyte Esterase Negative (NEG) Urine RBC 0/HPF (0-2) Urine WBC Occ/HPF (0-4) Urine Squamous Epithelial Cells Few/LPF Urine Bacteria 0/HPF (0-FEW) Urine Hyaline Casts Occasional/HPF Urine Mucus Mod/LPF O2 Saturation 96% (92-99) Arterial Blood pH 7.36 (7.35-7.45) Arterial Blood pCO2 at Patient Temp 49mmHg (35-46) Arterial Blood pO2 at Patient Temp 91mmHg (65-108) Arterial Blood HCO3 27mmol/L (21-28) Arterial Blood Base Excess 1mmol/L (-3-3) FiO2 35.0 Test 12/14/16 10:50 12/14/16 11:49 Troponin I Quantitative 4.505ng/mL (0.000-0.055) Glucose (Fingerstick) 157mg/dL (70-99) Medications Active Scripts Medications Dose Route/Sig Days Date Category Stiolto Respimat Inhal [place] (Tiotropium Br/Olodaterol HCl) 4 Gm Mist.inhal 4 Gm IH DAILY 11/10/16 Reported Novolog Flexpen (Insulin Aspart) 100 Unit/1 Ml Insuln.pen 1 Unit SQ 11/10/16 Reported Ventolin Hfa Inhaler (Albuterol Sulfate) 18 Gm Hfa.aer.ad 2 Puff INH QID 11/10/16 Reported Flovent 110MCG Hfa (Fluticasone Propionate) 12 Gm Aer.w.adap 2 Puff IH BID 11/10/16 Reported Losartan Potassium 25 Mg Tablet 100 Mg PO DAILY 11/10/16 Reported Levemir (Insulin Detemir) 100 Unit/1 Ml Vial 70 Unit SQ QHS 11/10/16 Reported Impression . FULL CONSULT DICTATED THANKS A/C RESP FAILURE A/C CHF OK TO TRANSFER ASAD ROSARIO MD Dec 14, 2016 14:17
--- NOTE | 2016-12-14 17:24 | CARD ---
APPROVED REPORT EXAM: Two-dimensional and M-mode echocardiogram with Doppler and color Doppler. Other Information Quality : GoodHR: 90bpm Rhythm : Irregular INDICATION For left ventricular ejection fraction evaluation only 2D DIMENSIONS IVSd1.0 (0.7-1.1cm)LVDd5.4 (3.9-5.9cm) PWd1.0 (0.7-1.1cm)LVDs2.7 (2.5-4.0cm) FS (%) 50.5 %SV112.9 ml LVEF(%)45.0 (>50%) LEFT VENTRICLE The left ventricle is normal size. There is normal left ventricular wall thickness. Left ventricle sy stolic function is mildly impaired. The Ejection Fraction is 45 %. There is mild global hypokinesis o f the left ventricle. Limited echo, left ventricular diastolic function was not assessed. RIGHT VENTRICLE The RV was not assessed. ATRIA The left and right atria were not assessed. GREAT VESSELS The aortic root is normal in size. The ascending aorta is normal in size. PERICARDIAL EFFUSION There is no evidence of significant pericardial effusion. Critical Notification Critical Value: No <Conclusion> Left ventricle systolic function is mildly impaired. The Ejection Fraction is 45 %. There is mild global hypokinesis of the left ventricle. Limited echo, left ventricular diastolic function was not assessed.
[2016-12-14] MEDS: IPRATRPIUM/ALBUTEROL 0.5/2.5MG 3 ML NEBU. NEB SCH (19:42)
[2016-12-14] MEDS: FUROSEMIDE 80 MG TABLET. PO SCH (21:59)
[2016-12-14] MEDS: INSULIN DETEMIR 300 UNITS/3 ML INSULN.PEN. SQ SCH (22:03)
--- NOTE | 2016-12-15 00:54 | CONS ---
DATE OF CONSULTATION: ATTENDING PHYSICIAN: Duc Mendieta DICTATING PHYSICIAN: Dr. Asad Rosario REASON FOR CONSULTATION: The patient seen in pulmonary consultation at the request of Dr. Mendieta for [id number] hypoxemic respiratory failure. HISTORY OF PRESENT ILLNESS: The patient is a 66-year-old male that is well known to me, presented with increasing shortness of breath. He was found by EMS to have saturations of 70%. He has underlying COPD, quit tobacco 18 months ago. He has chronic heart failure. He noticed some increasing lower extremity edema, increasing abdominal girth, increasing shortness of breath over the last several days. He has been compliant with his medication. He is not as compliant with his diet. He denies fever, chills or night sweats, cough, mostly nonproductive. He normally uses oxygen at home at 4 liters. PAST MEDICAL HISTORY: Chronic heart failure, COPD, chronic respiratory failure, type 2 diabetes, hyperlipidemia, and hypertension. PAST SURGICAL HISTORY: Status post right shoulder surgery. REVIEW OF SYSTEMS: As indicated above, otherwise, a 10-point system was reviewed and negative. CURRENT MEDICATIONS: List was reviewed. SOCIAL HISTORY: He quit tobacco 18 years ago; denies any excessive alcohol intake. FAMILY HISTORY: No family history of early lung disorders. PHYSICAL EXAMINATION: GENERAL: The patient was in the Intensive Care Unit. VITAL SIGNS: He is currently off of BiPAP, receiving oxygen per nasal cannula on 5 liters. HEENT: Eyes, the sclerae were nonicteric. NECK: Jugular venous distention was not elevated. No lymphadenopathy. CHEST: Full expansion. LUNGS: Crackles in the bases, otherwise no wheezes. CARDIOVASCULAR: Regular rate and rhythm with S1, S2, no S3. ABDOMEN: Soft, obese. EXTREMITIES: No clubbing, cyanosis, 1+ edema. NEUROLOGIC: The patient was awake, alert, following commands. A detailed neuro exam was not performed. DIAGNOSTIC DATA: Chest x-ray revealed vascular congestion. LABORATORY DATA: Reviewed. White count was elevated. Hemoglobin and hematocrit were noted. Arterial blood gas; pH of 7.36, PaCO2 of 49, pO2 of 91. Electrolytes were noted. CPK was elevated. Total protein was normal. Albumin was normal. IMPRESSION: 1. Hjkmf-gn-enujivy hypoxemic respiratory failure secondary to ylnyb-pz-ldysoxp systolic heart failure. 2. Xbvyk-gi-yxphkex systolic heart failure. 3. ____ hypertension. 4. Elevated troponin. 5. Type 2 diabetes. 6. Leukocytosis, suspect reactive. 7. Elevated liver chemistries suspect hepatic congestion. PLAN: 1. Continue diuresis. 2. Okay to transfer out of the Intensive Care Unit. 3. Continue oxygen supplementation. 4. No need for antibiotics or steroids. 5. Consult dietary. I do appreciate the privilege in sharing the patient's care. ASAD ROSARIO MD DR: EVELIN/anusha JOB#: [id number] / [id number]
[2016-12-15 03:43] VITALS: BP 153/84
[2016-12-15 05:02] LABS: BASO % 0 % (0-3); EOS % 2 % (0-3); HEMATOCRIT 43.7 % (39.0-53.0); HEMOGLOBIN 14.3 g/dL (13.0-17.5); LYMPH # 1.1 x10^3/uL (1.0-4.8); LYMPH % 9 % (24-48); MEAN CORPUSCULAR HEMOGLOBIN 26 pg (25-35); MEAN CORPUSCULAR HGB CONC 33 g/dL (31-37); MEAN CORPUSCULAR VOLUME 80 fL (79-100); MONO % 10 % (0-9); NEUT % 79 % (31-73); PLATELET COUNT 222 x10^3/uL (140-400); RED BLOOD COUNT 5.46 x10^6/uL (4.30-5.70); RED CELL DISTRIBUTION WIDTH 15.2 % (11.5-14.5); WHITE BLOOD COUNT 11.2 x10^3/uL (4.0-11.0)
[2016-12-15 05:31] LABS: CALCIUM 9.2 mg/dL (8.5-10.1); CREATININE 1.4 mg/dL (0.7-1.3); GFR 50.7; POTASSIUM 3.8 mmol/L (3.5-5.1)
[2016-12-15 07:00] VITALS: BP 145/62
[2016-12-15] MEDS: IPRATRPIUM/ALBUTEROL 0.5/2.5MG 3 ML NEBU. NEB SCH ×4 (07:39→20:59)
--- NOTE | 2016-12-15 07:44 | PDOC ---
SUBJECTIVE Subjective Breathing has significantly improved, as has his swelling. He is having lots of charley horses; states muscles cramp as soon as he tries to get into bed. Denies chest pain; troponin more elevated last night. OBJECTIVE Vital Signs Vital Signs Date Time Temp Pulse Resp B/P Pulse Ox O2 Delivery O2 Flow Rate FiO2 12/15/16 03:43 97.7 86 18 153/84 98 Nasal Cannula 4.0 97.7 12/14/16 23:11 97.9 67 16 155/80 98 Nasal Cannula 4.0 97.9 12/14/16 20:00 Nasal Cannula 5.0 12/14/16 19:42 99 Nasal Cannula 5.0 12/14/16 19:35 98.4 76 18 161/78 98 Nasal Cannula 5.0 98.4 12/14/16 18:13 80 12/14/16 17:18 79 12/14/16 16:28 84 12/14/16 15:29 97.8 92 24 147/45 98 Nasal Cannula 97.8 12/14/16 13:00 83 22 147/92 97 5.0 12/14/16 12:00 98.0 85 26 154/94 97 Nasal Cannula 5.0 98.0 12/14/16 11:00 82 22 154/91 96 Nasal Cannula 5.0 12/14/16 10:04 83 154/76 12/14/16 10:00 82 28 143/91 96 Nasal Cannula 5.0 12/14/16 09:00 78 24 154/76 97 Nasal Cannula 5.0 12/14/16 08:00 Nasal Cannula 5.0 12/14/16 08:00 88 20 166/79 97 Nasal Cannula 5.0 I & O Intake and Output 12/15/16 07:00 Intake Total 1702 ml Output Total 5675 ml Balance -3973 ml Intake Oral 1702 ml Output Urine Total 5675 ml PHYSICAL EXAM Physical Exam General: Alert, Oriented X3, Cooperative, NAD HEENT: Atraumatic, PERRLA, EOMI, Mucous membr. moist/pink Lungs: Clear to auscultation, Normal air movement Heart: RRR, no rubs, no gallops, no murmurs Abdomen: Normal bowel sounds, Other (distended) Extremities: No clubbing, No cyanosis, 1+ edema RLE Skin: No rashes, No breakdown, No significant lesion Neuro: Normal tone, Sensation intact, Cranial nerves 3-12 NL Psych/Mental Status: Mental status NL, Mood NL ASSESSMENT/PLAN Assessment/Plan Pt is a 66yo CM admitted for acute on chronic respiratory failure 1)Acute on Chronic Respiratory failure- 2/2 CHF exacerbation, resolved. Pt currently on normal dose of Lasix 20mg with 80mg BID in addition. Good net negative I/O's. Cardiology and Pulmonology following 2)Accelerated HTN- pt was on Nitro gtt, improved. Pt currently receiving Losartan 25mg, will increase. 3)Elevated troponin- with increase in trend. One more set pending this morning. Possible heart cath this Wednesday. 4)DM2- HbA1C pending. Pt continued on home insulin of Levemir 70 units QHS, and Novolog decreased to 15 units QAC. Has SSI available. 5)Leukocytosis- improving. Pt afebrile and not having symptoms of infection. CTM 6)Elevated AST- likely 2/2 hepatic congestion, CTM 7)Acute on CKD- 2/2 diuretic use. CTM. Problems: COMMENT Lab Laboratory Tests Test 12/14/16 09:05 12/14/16 10:50 12/14/16 11:49 12/14/16 13:50 Lactic Acid Level 2.2mmol/L (0.4-2.0) 0.9mmol/L (0.4-2.0) Troponin I Quantitative 4.505ng/mL (0.000-0.055) Glucose (Fingerstick) 157mg/dL (70-99) Test 12/14/16 17:45 12/14/16 17:50 12/14/16 21:27 12/15/16 04:27 Glucose (Fingerstick) 131mg/dL (70-99) 195mg/dL (70-99) Troponin I Quantitative 6.405ng/mL (0.000-0.055) White Blood Count 11.2x10^3/uL (4.0-11.0) Red Blood Count 5.46x10^6/uL (4.30-5.70) Hemoglobin 14.3g/dL (13.0-17.5) Hematocrit 43.7% (39.0-53.0) Mean Corpuscular Volume 80fL (79-100) Mean Corpuscular Hemoglobin 26pg (25-35) Mean Corpuscular Hemoglobin Concent 33g/dL (31-37) Red Cell Distribution Width 15.2% (11.5-14.5) Platelet Count 222x10^3/uL (140-400) Neutrophils (%) (Auto) 79% (31-73) Lymphocytes (%) (Auto) 9% (24-48) Monocytes (%) (Auto) 10% (0-9) Eosinophils (%) (Auto) 2% (0-3) Basophils (%) (Auto) 0% (0-3) Neutrophils # (Auto) 8.8x10^3uL (1.8-7.7) Lymphocytes # (Auto) 1.1x10^3/uL (1.0-4.8) Monocytes # (Auto) 1.1x10^3/uL (0.0-1.1) Eosinophils # (Auto) 0.2x10^3/uL (0.0-0.7) Basophils # (Auto) 0.0x10^3/uL (0.0-0.2) Sodium Level 141mmol/L (136-145) Potassium Level 3.8mmol/L (3.5-5.1) Chloride Level 97mmol/L (98-107) Carbon Dioxide Level 39mmol/L (21-32) Anion Gap 5 (6-14) Blood Urea Nitrogen 25mg/dL (8-26) Creatinine 1.4mg/dL (0.7-1.3) Estimated GFR (Cockcroft-Gault) 50.7 Glucose Level 153mg/dL (70-99) Calcium Level 9.2mg/dL (8.5-10.1) JUAN VALENCIA MD Dec 15, 2016 07:44
[2016-12-15] MEDS ORDERED: CYCLOBENZAPRINE 10 MG TABLET. PO PRN (07:45)
[2016-12-15] MEDS: INSULIN ASPART 300 UNITS/3 ML INSULN.PEN SQ SCH ×6 (08:00→17:42)
[2016-12-15] MEDS: FUROSEMIDE 80 MG TABLET. PO SCH ×2 (08:28→21:13)
[2016-12-15] MEDS: LOSARTAN POTASSIUM 50 MG TABLET. PO SCH (08:29)
[2016-12-15] MEDS: FUROSEMIDE 20 MG TABLET PO SCH (09:00)
[2016-12-15] MEDS ORDERED: NON FORMULARY ITEM (Tiotropium Br/Olodaterol HCl (Stiolto Respimat Inhal Spray) 4 GM) IH SCH (09:00)
[2016-12-15] MEDS ORDERED: LOSARTAN POTASSIUM 25 MG TABLET. PO SCH (09:00)
[2016-12-15] MEDS: FLUTICASONE 50MCG/NASAL SPRAY 16GM BOTTLE. NS SCH (09:53)
[2016-12-15 10:24] VITALS: BP 120/71
--- NOTE | 2016-12-15 13:46 | PDOC ---
PROGRESS NOTES Subjective Subjective Patient's SOB much improved. He complains of continued lacy horses that sometimes resolve only if he hits the affected the muscle with his fist. He denies any chest pain. Edema is much improved on the R lower extremity and resolved on the L lower extremity. Objective Objective Vital Signs Date Time Temp Pulse Resp B/P Pulse Ox O2 Delivery O2 Flow Rate FiO2 12/15/16 11:44 97 Nasal Cannula 3.0 12/15/16 10:24 98.1 78 22 120/71 98.1 Intake and Output 12/15/16 07:00 Intake Total 1702 ml Output Total 5675 ml Balance -3973 ml Intake Oral 1702 ml Output Urine Total 5675 ml Physical Exam Abdomen: Soft Heart: Regular rate, Normal S1, Normal S2 Extremities: Other (R lower extermity 1-2+ pitting edema ) General: Alert, Oriented X3, Cooperative, No acute distress HEENT: Atraumatic, EOMI Lungs: Clear to auscultation Neuro: Normal speech, Normal tone Psych/Mental Status: Mental status NL, Mood NL Skin: No rashes Assessment Assessment Problems Medical Problems: (1) Acute on chronic diastolic CHF (congestive heart failure) Status: Acute (2) Acute on chronic respiratory failure Status: Acute (3) Cardiac ischemia Status: Acute (4) COPD exacerbation Status: Acute Plan Plan of Care 1. Limited echo ordered - no change in EF since October 2016 (EF remains at 45%) - October 2016 LV EF of 45% with functioning atrial and mitral valves and mild LV dysfunction 2. Cath tomorrow at 1pm - BUN and Cr at baseline, troponins elevated 1.437, BNP elevated 2255, CK elevated 5609, AST/ALT wnl - Kidneys and liver seem not to be involved 4. Jacob laura afib Thank you for allowing me the pleasure of taking care of this patient. Comment Review of Relevant I have reviewed the following items thomas (where applicable) has been applied. Labs Laboratory Tests Test 12/14/16 05:05 12/14/16 05:35 12/14/16 06:20 12/14/16 07:10 White Blood Count 15.0x10^3/uL (4.0-11.0) Red Blood Count 4.99x10^6/uL (4.30-5.70) Hemoglobin 13.1g/dL (13.0-17.5) Hematocrit 41.9% (39.0-53.0) Mean Corpuscular Volume 84fL (79-100) Mean Corpuscular Hemoglobin 26pg (25-35) Mean Corpuscular Hemoglobin Concent 31g/dL (31-37) Red Cell Distribution Width 15.1% (11.5-14.5) Platelet Count 252x10^3/uL (140-400) Neutrophils (%) (Auto) 67% (31-73) Lymphocytes (%) (Auto) 18% (24-48) Monocytes (%) (Auto) 12% (0-9) Eosinophils (%) (Auto) 4% (0-3) Basophils (%) (Auto) 0% (0-3) Neutrophils # (Auto) 10.0x10^3uL (1.8-7.7) Lymphocytes # (Auto) 2.7x10^3/uL (1.0-4.8) Monocytes # (Auto) 1.7x10^3/uL (0.0-1.1) Eosinophils # (Auto) 0.5x10^3/uL (0.0-0.7) Basophils # (Auto) 0.1x10^3/uL (0.0-0.2) Sodium Level 142mmol/L (136-145) Potassium Level 4.9mmol/L (3.5-5.1) Chloride Level 103mmol/L (98-107) Carbon Dioxide Level 28mmol/L (21-32) Anion Gap 11 (6-14) Blood Urea Nitrogen 22mg/dL (8-26) Creatinine 1.3mg/dL (0.7-1.3) Estimated GFR (Cockcroft-Gault) 55.2 BUN/Creatinine Ratio 17 (6-20) Glucose Level 257mg/dL (70-99) Lactic Acid Level 3.9mmol/L (0.4-2.0) Calcium Level 8.5mg/dL (8.5-10.1) Total Bilirubin 0.8mg/dL (0.2-1.0) Aspartate Amino Transf (AST/SGOT) 40U/L (15-37) Alanine Aminotransferase (ALT/SGPT) 52U/L (16-63) Alkaline Phosphatase 86U/L (46-116) Creatine Kinase 560U/L (39-308) Creatine Kinase MB (Mass) 28.0ng/mL (0.0-3.6) Creatine Kinase MB Relative Index 5.0% (0-4) Troponin I Quantitative 1.437ng/mL (0.000-0.055) MU-[id number]-Type Natriuretic Peptide 2255pg/mL (0-124) Total Protein 7.5g/dL (6.4-8.2) Albumin 3.8g/dL (3.4-5.0) Albumin/Globulin Ratio 1.0 (1.0-1.7) Urine Collection Type Unknown Urine Color Yellow Urine Clarity Clear Urine pH 5.0 Urine Specific [place] 1.025 Urine Protein 30mg/dL (NEG-TRACE) Urine Glucose (UA) 100mg/dL (NEG) Urine Ketones (Stick) Negativemg/dL (NEG) Urine Blood Negative (NEG) Urine Nitrite Negative (NEG) Urine Bilirubin Negative (NEG) Urine Urobilinogen Dipstick 0.2mg/dL (0.2 mg/dL) Urine Leukocyte Esterase Negative (NEG) Urine RBC 0/HPF (0-2) Urine WBC Occ/HPF (0-4) Urine Squamous Epithelial Cells Few/LPF Urine Bacteria 0/HPF (0-FEW) Urine Hyaline Casts Occasional/HPF Urine Mucus Mod/LPF O2 Saturation 96% (92-99) Arterial Blood pH 7.36 (7.35-7.45) Arterial Blood pCO2 at Patient Temp 49mmHg (35-46) Arterial Blood pO2 at Patient Temp 91mmHg (65-108) Arterial Blood HCO3 27mmol/L (21-28) Arterial Blood Base Excess 1mmol/L (-3-3) FiO2 35.0 Nasal Screen MRSA (PCR) Negative (Negative) Test 12/14/16 09:05 12/14/16 10:50 12/14/16 11:49 12/14/16 13:50 Lactic Acid Level 2.2mmol/L (0.4-2.0) 0.9mmol/L (0.4-2.0) Troponin I Quantitative 4.505ng/mL (0.000-0.055) Glucose (Fingerstick) 157mg/dL (70-99) Test 12/14/16 17:45 12/14/16 17:50 12/14/16 21:27 12/15/16 04:27 Glucose (Fingerstick) 131mg/dL (70-99) 195mg/dL (70-99) Troponin I Quantitative 6.405ng/mL (0.000-0.055) 5.920ng/mL (0.000-0.055) White Blood Count 11.2x10^3/uL (4.0-11.0) Red Blood Count 5.46x10^6/uL (4.30-5.70) Hemoglobin 14.3g/dL (13.0-17.5) Hematocrit 43.7% (39.0-53.0) Mean Corpuscular Volume 80fL (79-100) Mean Corpuscular Hemoglobin 26pg (25-35) Mean Corpuscular Hemoglobin Concent 33g/dL (31-37) Red Cell Distribution Width 15.2% (11.5-14.5) Platelet Count 222x10^3/uL (140-400) Neutrophils (%) (Auto) 79% (31-73) Lymphocytes (%) (Auto) 9% (24-48) Monocytes (%) (Auto) 10% (0-9) Eosinophils (%) (Auto) 2% (0-3) Basophils (%) (Auto) 0% (0-3) Neutrophils # (Auto) 8.8x10^3uL (1.8-7.7) Lymphocytes # (Auto) 1.1x10^3/uL (1.0-4.8) Monocytes # (Auto) 1.1x10^3/uL (0.0-1.1) Eosinophils # (Auto) 0.2x10^3/uL (0.0-0.7) Basophils # (Auto) 0.0x10^3/uL (0.0-0.2) Sodium Level 141mmol/L (136-145) Potassium Level 3.8mmol/L (3.5-5.1) Chloride Level 97mmol/L (98-107) Carbon Dioxide Level 39mmol/L (21-32) Anion Gap 5 (6-14) Blood Urea Nitrogen 25mg/dL (8-26) Creatinine 1.4mg/dL (0.7-1.3) Estimated GFR (Cockcroft-Gault) 50.7 Glucose Level 153mg/dL (70-99) Calcium Level 9.2mg/dL (8.5-10.1) Test 12/15/16 07:42 12/15/16 11:33 Glucose (Fingerstick) 134mg/dL (70-99) 197mg/dL (70-99) Laboratory Tests Test 12/14/16 13:50 12/14/16 17:45 12/14/16 17:50 12/14/16 21:27 Lactic Acid Level 0.9mmol/L (0.4-2.0) Glucose (Fingerstick) 131mg/dL (70-99) 195mg/dL (70-99) Troponin I Quantitative 6.405ng/mL (0.000-0.055) Test 12/15/16 04:27 12/15/16 07:42 12/15/16 11:33 White Blood Count 11.2x10^3/uL (4.0-11.0) Red Blood Count 5.46x10^6/uL (4.30-5.70) Hemoglobin 14.3g/dL (13.0-17.5) Hematocrit 43.7% (39.0-53.0) Mean Corpuscular Volume 80fL (79-100) Mean Corpuscular Hemoglobin 26pg (25-35) Mean Corpuscular Hemoglobin Concent 33g/dL (31-37) Red Cell Distribution Width 15.2% (11.5-14.5) Platelet Count 222x10^3/uL (140-400) Neutrophils (%) (Auto) 79% (31-73) Lymphocytes (%) (Auto) 9% (24-48) Monocytes (%) (Auto) 10% (0-9) Eosinophils (%) (Auto) 2% (0-3) Basophils (%) (Auto) 0% (0-3) Neutrophils # (Auto) 8.8x10^3uL (1.8-7.7) Lymphocytes # (Auto) 1.1x10^3/uL (1.0-4.8) Monocytes # (Auto) 1.1x10^3/uL (0.0-1.1) Eosinophils # (Auto) 0.2x10^3/uL (0.0-0.7) Basophils # (Auto) 0.0x10^3/uL (0.0-0.2) Sodium Level 141mmol/L (136-145) Potassium Level 3.8mmol/L (3.5-5.1) Chloride Level 97mmol/L (98-107) Carbon Dioxide Level 39mmol/L (21-32) Anion Gap 5 (6-14) Blood Urea Nitrogen 25mg/dL (8-26) Creatinine 1.4mg/dL (0.7-1.3) Estimated GFR (Cockcroft-Gault) 50.7 Glucose Level 153mg/dL (70-99) Calcium Level 9.2mg/dL (8.5-10.1) Troponin I Quantitative 5.920ng/mL (0.000-0.055) Glucose (Fingerstick) 134mg/dL (70-99) 197mg/dL (70-99) Microbiology 12/14/16 Blood Culture - Preliminary, Resulted NO GROWTH AFTER 1 DAY Medications Current Medications Nitroglycerin/ Dextrose (Nitroglycerin Drip) 250 ml @ 0 mls/hr CONT PRN IV SEE I/O RECORD Last administered on 12/14/16 05:15; Start 12/14/16 at 05:15 Albuterol/ Ipratropium (Duoneb) 6 ml 1X ONCE NEB Last administered on 05:17; Start 12/14/16 at 05:30; Stop 12/14/16 at 05:31; Status DC Furosemide (Lasix) 60 mg 1X ONCE IVP Last administered on 12/14/16 06:21; Start 12/14/16 at 06:30; Stop 12/14/16 at 06:31; Status DC Ondansetron HCl 4 mg 4 mg PRN Q8HRS PRN IV NAUSEA/VOMITING; Start 12/14/16 at 06:15; Stop 12/15/16 at 06:14; Status DC Sodium Chloride (Iv Sodium Chloride 0.9% 1000ml Bag) 1,000 ml @ 30 mls/hr Q24H IV Last administered on 12/14/16 06:21; Start 12/14/16 at 06:30; Stop at 06:29; Status DC Acetaminophen (Tylenol) 650 mg PRN Q4HRS PRN PO FEVER Last administered on 12/14 20:35; Start 12/14/16 at 06:15; Stop 12/15/16 at 06:14; Status DC Albuterol/ Ipratropium (Duoneb) 3 ml RTQID NEB Last administered on 12/15/16 07:39; Start 12/14/16 at 08:00; Stop 12/15/16 at 07:59; Status DC Fluticasone Propionate (Flonase) 2 spray DAILY NS Last administered on 09:53; Start 12/15/16 at 09:00 Non-Formulary Medication 4 gm DAILY IH ; Start 12/15/16 at 09:00; Status UNV Insulin Aspart (Novolog) 25 units TIDAC SQ ; Start 12/14/16 at 11:30; Stop 12/14 at 11:55; Status DC Losartan Potassium (Cozaar) 25 mg DAILY PO ; Start 12/15/16 at 09:00; Stop 12/15 at 09:00; Status DC Albuterol Sulfate (Ventolin Neb Soln) 2.5 mg PRN Q4HRS PRN NEB SHORTNESS OF BREATH; Start 12/14/16 at 09:15 Insulin Detemir (Levemir) 70 units QHS SQ Last administered on 12/14/16 22:03 ; Start 12/14/16 at 21:00 Losartan Potassium (Cozaar) 25 mg DAILY PO Last administered on 12/14/16 10:04 ; Start 12/14/16 at 09:15; Stop 12/15/16 at 07:42; Status DC Furosemide (Lasix) 20 mg DAILY PO Last administered on 12/14/16 10:04; Start 12/14/16 at 09:15 Insulin Aspart (Novolog) 0-7 UNITS TIDWMEALS SQ Last administered on 12/15/16 13:14; Start 12/14/16 at 12:00 Dextrose (Dextrose 50%-Water Syringe) 12.5 gm PRN Q15MIN PRN IV SEE COMMENTS; Start 12/14/16 at 09:15 Insulin Aspart (Novolog) 15 units TIDAC SQ Last administered on 12/15/16 13:13 ; Start 12/14/16 at 12:00 Furosemide (Lasix) 80 mg Q12HR PO Last administered on 12/15/16 08:28; Start 12/14/16 at 21:00; Stop 12/16/16 at 00:00 Furosemide (Lasix) 40 mg 1X ONCE PO Last administered on 12/14/16 13:13; Start 12/14/16 at 12:45; Stop 12/14/16 at 12:50; Status DC Furosemide (Lasix) 20 mg 1X ONCE PO ; Start 12/14/16 at 12:45; Stop 12/14/16 at 12:46; Status Cancel Enoxaparin Sodium (Lovenox 80mg Syringe) 80 mg Q12H SQ Last administered on 06:08; Start 12/14/16 at 17:00 Cyclobenzaprine HCl (Flexeril) 5 mg PRN Q6HRS PRN PO MUSCLE SPASMS; Start 12/15 at 07:45 Losartan Potassium (Cozaar) 50 mg DAILY PO Last administered on 12/15/16 08:29 ; Start 12/15/16 at 09:00 Albuterol/ Ipratropium (Duoneb) 3 ml RTQID NEB Last administered on 12/15/16 11:42; Start 12/15/16 at 12:00 Active Scripts Active Reported Stiolto Respimat Inhal [place] (Tiotropium Br/Olodaterol HCl) 4 Gm Mist.inhal 4 Gm IH DAILY Novolog Flexpen (Insulin Aspart) 100 Unit/1 Ml Insuln.pen 1 Unit SQ Ventolin Hfa Inhaler (Albuterol Sulfate) 18 Gm Hfa.aer.ad 2 Puff INH QID Flovent 110MCG Hfa (Fluticasone Propionate) 12 Gm Aer.w.adap 2 Puff IH BID Losartan Potassium 25 Mg Tablet 100 Mg PO DAILY Levemir (Insulin Detemir) 100 Unit/1 Ml Vial 70 Unit SQ QHS Vitals/I & O Vital Sign - Last 24 Hours 12/14/16 12/14/16 12/14/16 12/14/16 15:29 16:28 17:18 18:13 Temp 97.8 97.8 Pulse 92 84 79 80 Resp 24 B/P 147/45 Pulse Ox 98 O2 Delivery Nasal Cannula 12/14/16 12/14/16 12/14/16 12/14/16 19:35 19:42 20:00 23:11 Temp 98.4 97.9 98.4 97.9 Pulse 76 67 Resp B/P 161/78 155/80 Pulse Ox 98 99 98 O2 Delivery Nasal Cannula Nasal Cannula Nasal Cannula Nasal Cannula O2 Flow Rate 5.0 5.0 5.0 4.0 12/15/16 12/15/16 12/15/16 12/15/16 03:43 07:00 07:40 08:00 Temp 97.7 97.6 97.7 97.6 Pulse 86 73 Resp B/P 153/84 145/62 Pulse Ox 98 97 99 O2 Delivery Nasal Cannula Nasal Cannula Nasal Cannula Nasal Cannula O2 Flow Rate 4.0 4.0 3.0 12/15/16 12/15/16 12/15/16 08:29 10:24 11:44 Temp 98.1 98.1 Pulse 86 78 Resp B/P 145/62 120/71 Pulse Ox 98 97 O2 Delivery Nasal Cannula Nasal Cannula O2 Flow Rate 3.0 Intake and Output 12/14/16 12/14/16 12/15/16 15:00 23:00 07:00 Intake Total 122 ml 980 ml 600 ml Output Total 2300 ml 1875 ml 1500 ml Balance -2178 ml -895 ml -900 ml ELLE WEBER MD Dec 15, 2016 13:46
[2016-12-15 15:35] VITALS: BP 130/71
--- NOTE | 2016-12-15 15:49 | PDOC ---
PULMONARY PROGRESS NOTES Subjective feels better Vitals Vital Signs Date Time Temp Pulse Resp B/P Pulse Ox O2 Delivery O2 Flow Rate FiO2 12/15/16 15:35 98.3 81 22 130/71 96 Nasal Cannula 98.3 12/15/16 11:44 3.0 General: Alert, No acute distress Lungs: Clear Cardiovascular: S1 Abdomen: Soft, Other (obese) Neuro Exam: Alert Extremities: Other (trace edema) Skin: Warm Labs Laboratory Tests Test 12/14/16 05:05 12/14/16 05:35 12/14/16 06:20 12/14/16 07:10 White Blood Count 15.0x10^3/uL (4.0-11.0) Red Blood Count 4.99x10^6/uL (4.30-5.70) Hemoglobin 13.1g/dL (13.0-17.5) Hematocrit 41.9% (39.0-53.0) Mean Corpuscular Volume 84fL (79-100) Mean Corpuscular Hemoglobin 26pg (25-35) Mean Corpuscular Hemoglobin Concent 31g/dL (31-37) Red Cell Distribution Width 15.1% (11.5-14.5) Platelet Count 252x10^3/uL (140-400) Neutrophils (%) (Auto) 67% (31-73) Lymphocytes (%) (Auto) 18% (24-48) Monocytes (%) (Auto) 12% (0-9) Eosinophils (%) (Auto) 4% (0-3) Basophils (%) (Auto) 0% (0-3) Neutrophils # (Auto) 10.0x10^3uL (1.8-7.7) Lymphocytes # (Auto) 2.7x10^3/uL (1.0-4.8) Monocytes # (Auto) 1.7x10^3/uL (0.0-1.1) Eosinophils # (Auto) 0.5x10^3/uL (0.0-0.7) Basophils # (Auto) 0.1x10^3/uL (0.0-0.2) Sodium Level 142mmol/L (136-145) Potassium Level 4.9mmol/L (3.5-5.1) Chloride Level 103mmol/L (98-107) Carbon Dioxide Level 28mmol/L (21-32) Anion Gap 11 (6-14) Blood Urea Nitrogen 22mg/dL (8-26) Creatinine 1.3mg/dL (0.7-1.3) Estimated GFR (Cockcroft-Gault) 55.2 BUN/Creatinine Ratio 17 (6-20) Glucose Level 257mg/dL (70-99) Lactic Acid Level 3.9mmol/L (0.4-2.0) Calcium Level 8.5mg/dL (8.5-10.1) Total Bilirubin 0.8mg/dL (0.2-1.0) Aspartate Amino Transf (AST/SGOT) 40U/L (15-37) Alanine Aminotransferase (ALT/SGPT) 52U/L (16-63) Alkaline Phosphatase 86U/L (46-116) Creatine Kinase 560U/L (39-308) Creatine Kinase MB (Mass) 28.0ng/mL (0.0-3.6) Creatine Kinase MB Relative Index 5.0% (0-4) Troponin I Quantitative 1.437ng/mL (0.000-0.055) [id number]-Krs-A-Type Natriuretic Peptide 2255pg/mL (0-124) Total Protein 7.5g/dL (6.4-8.2) Albumin 3.8g/dL (3.4-5.0) Albumin/Globulin Ratio 1.0 (1.0-1.7) Urine Collection Type Unknown Urine Color Yellow Urine Clarity Clear Urine pH 5.0 Urine Specific [place] 1.025 Urine Protein 30mg/dL (NEG-TRACE) Urine Glucose (UA) 100mg/dL (NEG) Urine Ketones (Stick) Negativemg/dL (NEG) Urine Blood Negative (NEG) Urine Nitrite Negative (NEG) Urine Bilirubin Negative (NEG) Urine Urobilinogen Dipstick 0.2mg/dL (0.2 mg/dL) Urine Leukocyte Esterase Negative (NEG) Urine RBC 0/HPF (0-2) Urine WBC Occ/HPF (0-4) Urine Squamous Epithelial Cells Few/LPF Urine Bacteria 0/HPF (0-FEW) Urine Hyaline Casts Occasional/HPF Urine Mucus Mod/LPF O2 Saturation 96% (92-99) Arterial Blood pH 7.36 (7.35-7.45) Arterial Blood pCO2 at Patient Temp 49mmHg (35-46) Arterial Blood pO2 at Patient Temp 91mmHg (65-108) Arterial Blood HCO3 27mmol/L (21-28) Arterial Blood Base Excess 1mmol/L (-3-3) FiO2 35.0 Nasal Screen MRSA (PCR) Negative (Negative) Test 12/14/16 09:05 12/14/16 10:50 12/14/16 11:49 12/14/16 13:50 Lactic Acid Level 2.2mmol/L (0.4-2.0) 0.9mmol/L (0.4-2.0) Troponin I Quantitative 4.505ng/mL (0.000-0.055) Glucose (Fingerstick) 157mg/dL (70-99) Test 12/14/16 17:45 12/14/16 17:50 12/14/16 21:27 12/15/16 04:27 Glucose (Fingerstick) 131mg/dL (70-99) 195mg/dL (70-99) Troponin I Quantitative 6.405ng/mL (0.000-0.055) 5.920ng/mL (0.000-0.055) White Blood Count 11.2x10^3/uL (4.0-11.0) Red Blood Count 5.46x10^6/uL (4.30-5.70) Hemoglobin 14.3g/dL (13.0-17.5) Hematocrit 43.7% (39.0-53.0) Mean Corpuscular Volume 80fL (79-100) Mean Corpuscular Hemoglobin 26pg (25-35) Mean Corpuscular Hemoglobin Concent 33g/dL (31-37) Red Cell Distribution Width 15.2% (11.5-14.5) Platelet Count 222x10^3/uL (140-400) Neutrophils (%) (Auto) 79% (31-73) Lymphocytes (%) (Auto) 9% (24-48) Monocytes (%) (Auto) 10% (0-9) Eosinophils (%) (Auto) 2% (0-3) Basophils (%) (Auto) 0% (0-3) Neutrophils # (Auto) 8.8x10^3uL (1.8-7.7) Lymphocytes # (Auto) 1.1x10^3/uL (1.0-4.8) Monocytes # (Auto) 1.1x10^3/uL (0.0-1.1) Eosinophils # (Auto) 0.2x10^3/uL (0.0-0.7) Basophils # (Auto) 0.0x10^3/uL (0.0-0.2) Sodium Level 141mmol/L (136-145) Potassium Level 3.8mmol/L (3.5-5.1) Chloride Level 97mmol/L (98-107) Carbon Dioxide Level 39mmol/L (21-32) Anion Gap 5 (6-14) Blood Urea Nitrogen 25mg/dL (8-26) Creatinine 1.4mg/dL (0.7-1.3) Estimated GFR (Cockcroft-Gault) 50.7 Glucose Level 153mg/dL (70-99) Calcium Level 9.2mg/dL (8.5-10.1) Test 12/15/16 07:42 12/15/16 11:33 Glucose (Fingerstick) 134mg/dL (70-99) 197mg/dL (70-99) Laboratory Tests Test 12/14/16 17:45 12/14/16 17:50 12/14/16 21:27 12/15/16 04:27 Glucose (Fingerstick) 131mg/dL (70-99) 195mg/dL (70-99) Troponin I Quantitative 6.405ng/mL (0.000-0.055) 5.920ng/mL (0.000-0.055) White Blood Count 11.2x10^3/uL (4.0-11.0) Red Blood Count 5.46x10^6/uL (4.30-5.70) Hemoglobin 14.3g/dL (13.0-17.5) Hematocrit 43.7% (39.0-53.0) Mean Corpuscular Volume 80fL (79-100) Mean Corpuscular Hemoglobin 26pg (25-35) Mean Corpuscular Hemoglobin Concent 33g/dL (31-37) Red Cell Distribution Width 15.2% (11.5-14.5) Platelet Count 222x10^3/uL (140-400) Neutrophils (%) (Auto) 79% (31-73) Lymphocytes (%) (Auto) 9% (24-48) Monocytes (%) (Auto) 10% (0-9) Eosinophils (%) (Auto) 2% (0-3) Basophils (%) (Auto) 0% (0-3) Neutrophils # (Auto) 8.8x10^3uL (1.8-7.7) Lymphocytes # (Auto) 1.1x10^3/uL (1.0-4.8) Monocytes # (Auto) 1.1x10^3/uL (0.0-1.1) Eosinophils # (Auto) 0.2x10^3/uL (0.0-0.7) Basophils # (Auto) 0.0x10^3/uL (0.0-0.2) Sodium Level 141mmol/L (136-145) Potassium Level 3.8mmol/L (3.5-5.1) Chloride Level 97mmol/L (98-107) Carbon Dioxide Level 39mmol/L (21-32) Anion Gap 5 (6-14) Blood Urea Nitrogen 25mg/dL (8-26) Creatinine 1.4mg/dL (0.7-1.3) Estimated GFR (Cockcroft-Gault) 50.7 Glucose Level 153mg/dL (70-99) Calcium Level 9.2mg/dL (8.5-10.1) Test 12/15/16 07:42 12/15/16 11:33 Glucose (Fingerstick) 134mg/dL (70-99) 197mg/dL (70-99) Medications Active Scripts Medications Dose Route/Sig Days Date Category Stiolto Respimat Inhal [place] (Tiotropium Br/Olodaterol HCl) 4 Gm Mist.inhal 4 Gm IH DAILY 11/10/16 Reported Novolog Flexpen (Insulin Aspart) 100 Unit/1 Ml Insuln.pen 1 Unit SQ 11/10/16 Reported Ventolin Hfa Inhaler (Albuterol Sulfate) 18 Gm Hfa.aer.ad 2 Puff INH QID 11/10/16 Reported Flovent 110MCG Hfa (Fluticasone Propionate) 12 Gm Aer.w.adap 2 Puff IH BID 11/10/16 Reported Losartan Potassium 25 Mg Tablet 100 Mg PO DAILY 11/10/16 Reported Levemir (Insulin Detemir) 100 Unit/1 Ml Vial 70 Unit SQ QHS 11/10/16 Reported Impression . 1. Kspik-wl-elpyfhq hypoxemic respiratory failure secondary to muxpk-id-xaimosc systolic heart failure. 2. Iyiki-sd-livanqx systolic heart failure. 3. hypertension. 4. Elevated troponin. 5. Type 2 diabetes. 6. Leukocytosis, suspect reactive. 7. Elevated liver chemistries suspect hepatic congestion. Plan . 1. Continue diuresis. 2. Cath in am 3. Continue oxygen supplementation. 4. No need for antibiotics or steroids. 5. Consult dietary. 6. Pt on home oxygen at 4 litres GINGER KUMARI MD Dec 15, 2016 15:49
--- NOTE | 2016-12-15 17:01 | PDOC ---
MODERATE SEDATION ASSESSMENT RISKS/ALTERNATIVES Risks/Alternatives Risks and alternatives of this type of sedation and procedure discussed with: RISK/ALTERNATIVES: Patient H & P ON CHART H & P H & P on chart and reviewed for co-morbid conditions and appropriate labs. H&P ON CHART: Yes STATUS PREG STATUS ASSESSED: Yes MEDS/ALLERGIES REVIEWED Meds/Allergies Reviewed Medications and Allergies including time and route of recently administered narcotics and sedatives. MEDS/ALLERGIES REVIEWED: Yes ASA RATING ASA RATING: II AIRWAY ASSESSMENT Airway Assessment Airway patency, oral function limitations, presence of caps, crowns, dentures, partials, and ability to extend neck assessed. AIRWAY ASSESSMENT: Yes MALLAMPATI SCORE MALLAMPATI SCORE: II PRE-SEDATION ASSESSMENT PRE-SEDATION ASSESSMENT: Yes ELLE WEBER MD Dec 15, 2016 17:01
[2016-12-15] MEDS ORDERED: ACETAMINOPHEN 325 MG TABLET. PO PRN (19:45)
[2016-12-15 19:59] VITALS: BP 132/74
[2016-12-15] MEDS: FLOVENT 100 MCG INH SCH (21:00)
[2016-12-15] MEDS: ACETYLCYSTEINE 20% ORAL SOLN 600 MG/3 ML SYRINGE. PO SCH (21:13)
[2016-12-15] MEDS: INSULIN DETEMIR 300 UNITS/3 ML INSULN.PEN. SQ SCH (21:20)
[2016-12-15 22:38] VITALS: BP 119/51
[2016-12-16] VITALS (11 sets, daily range): BP systolic 104–155; BP diastolic 47–87
[2016-12-16] MEDS: ACETYLCYSTEINE 20% ORAL SOLN 600 MG/3 ML SYRINGE. PO SCH (06:50)
[2016-12-16] MEDS: INSULIN ASPART 300 UNITS/3 ML INSULN.PEN SQ SCH ×6 (07:37→17:54)
--- NOTE | 2016-12-16 07:48 | PDOC ---
SUBJECTIVE Subjective Pt doing better this morning; muscle cramps have improved. Heart catheterization this afternoon. OBJECTIVE Vital Signs Vital Signs Date Time Temp Pulse Resp B/P Pulse Ox O2 Delivery O2 Flow Rate FiO2 12/16/16 07:05 97.8 92 20 116/75 96 Nasal Cannula 4.0 97.8 12/16/16 02:38 98.1 88 20 94 Nasal Cannula 4.0 98.1 12/15/16 22:38 97.9 94 17 119/51 92 Room Air 97.9 12/15/16 21:00 97 Nasal Cannula 3.0 12/15/16 19:59 98.0 22 132/74 96 Nasal Cannula 98.0 12/15/16 19:55 Nasal Cannula 3.0 12/15/16 15:52 97 Nasal Cannula 3.0 12/15/16 15:35 98.3 81 22 130/71 96 Nasal Cannula 98.3 12/15/16 11:44 97 Nasal Cannula 3.0 12/15/16 10:24 98.1 78 22 120/71 98 Nasal Cannula 98.1 12/15/16 08:29 86 145/62 12/15/16 08:00 Nasal Cannula 3.0 I & O Intake and Output 12/16/16 07:00 Intake Total 1320 ml Output Total 2950 ml Balance -1630 ml Intake Oral 1320 ml Output Urine Total 2950 ml PHYSICAL EXAM Physical Exam General: Alert, Oriented X3, Cooperative, NAD HEENT: Atraumatic, PERRLA, EOMI, Mucous membr. moist/pink Lungs: Clear to auscultation, Normal air movement Heart: RRR, no rubs, no gallops, no murmurs Abdomen: Normal bowel sounds, Other (distended) Extremities: No clubbing, No cyanosis, 1+ edema RLE Skin: No rashes, No breakdown, No significant lesion Neuro: Normal tone, Sensation intact, Cranial nerves 3-12 NL Psych/Mental Status: Mental status NL, Mood NL ASSESSMENT/PLAN Assessment/Plan Pt is a 66yo CM admitted for acute on chronic respiratory failure 1)Acute on Chronic Respiratory failure- 2/2 CHF exacerbation, resolved. Pt had been receiving additional doses of Lasix, now back on normal dose of Lasix 20mg. Good net negative I/O's. Cardiology and Pulmonology following 2)Accelerated HTN- pt was on Nitro gtt, improved on increased dose of Losartan 50mg. 3)Elevated troponin- with increase in trend. Heart cath this afternoon 4)DM2- well controlled with HbA1C this admission of 7. Pt continued on home insulin of Levemir 70 units QHS, and Novolog decreased to 30 units QAC. Has SSI available. 5)Leukocytosis- improving. Pt afebrile and not having symptoms of infection. CTM 6)Elevated AST- likely 2/2 hepatic congestion, CTM 7)Acute on CKD- 2/2 diuretic use. CTM. Problems: COMMENT Lab Laboratory Tests Test 12/15/16 11:33 12/15/16 17:31 12/15/16 20:53 12/16/16 07:27 Glucose (Fingerstick) 197mg/dL (70-99) 83mg/dL (70-99) 122mg/dL (70-99) 188mg/dL (70-99) JUAN VALENCIA MD Dec 16, 2016 07:48
[2016-12-16] MEDS: IPRATRPIUM/ALBUTEROL 0.5/2.5MG 3 ML NEBU. NEB SCH ×4 (08:21→20:09)
[2016-12-16] MEDS: FLOVENT 100 MCG INH SCH ×2 (08:32→20:24)
[2016-12-16] MEDS: FUROSEMIDE 20 MG TABLET PO SCH (08:32)
[2016-12-16] MEDS: LOSARTAN POTASSIUM 50 MG TABLET. PO SCH (08:33)
[2016-12-16] MEDS: FLUTICASONE 50MCG/NASAL SPRAY 16GM BOTTLE. NS SCH (08:36)
[2016-12-16] MEDS ORDERED: LIDOCAINE 2% 20 ML VIAL. ONE (08:52)
[2016-12-16] MEDS ORDERED: IODIXANOL 320 MG/ML 100 ML VIAL. ONE (08:52)
[2016-12-16] MEDS ORDERED: FENTANYL PF 250 MCG/5 ML VIAL. ONE (11:18)
[2016-12-16] MEDS ORDERED: MIDAZOLAM HCL/PF 5 MG/5 ML VIAL. ONE (11:18)
[2016-12-16] MEDS ORDERED: FENTANYL PF 250 MCG/5 ML VIAL. IV ONE (11:30)
[2016-12-16] MEDS ORDERED: IODIXANOL 320 MG/ML 100 ML VIAL. IART ONE (11:30)
[2016-12-16] MEDS ORDERED: MIDAZOLAM HCL/PF 5 MG/5 ML VIAL. IV ONE (11:30)
[2016-12-16] MEDS ORDERED: LIDOCAINE 2% 20 ML VIAL. IJ ONE (11:30)
--- NOTE | 2016-12-16 12:06 | PDOC ---
PULMONARY PROGRESS NOTES Subjective feels better Vitals Vital Signs Date Time Temp Pulse Resp B/P Pulse Ox O2 Delivery O2 Flow Rate FiO2 12/16/16 11:00 98.3 79 20 120/56 97 Nasal Cannula 4.0 98.3 General: Alert, No acute distress Lungs: Clear Cardiovascular: S1 Abdomen: Soft, Other (obese) Neuro Exam: Alert Extremities: Other (trace edema) Skin: Warm Labs Laboratory Tests Test 12/14/16 13:50 12/14/16 17:45 12/14/16 17:50 12/14/16 21:27 Lactic Acid Level 0.9mmol/L (0.4-2.0) Glucose (Fingerstick) 131mg/dL (70-99) 195mg/dL (70-99) Troponin I Quantitative 6.405ng/mL (0.000-0.055) Test 12/15/16 04:27 12/15/16 07:42 12/15/16 11:33 12/15/16 17:31 White Blood Count 11.2x10^3/uL (4.0-11.0) Red Blood Count 5.46x10^6/uL (4.30-5.70) Hemoglobin 14.3g/dL (13.0-17.5) Hematocrit 43.7% (39.0-53.0) Mean Corpuscular Volume 80fL (79-100) Mean Corpuscular Hemoglobin 26pg (25-35) Mean Corpuscular Hemoglobin Concent 33g/dL (31-37) Red Cell Distribution Width 15.2% (11.5-14.5) Platelet Count 222x10^3/uL (140-400) Neutrophils (%) (Auto) 79% (31-73) Lymphocytes (%) (Auto) 9% (24-48) Monocytes (%) (Auto) 10% (0-9) Eosinophils (%) (Auto) 2% (0-3) Basophils (%) (Auto) 0% (0-3) Neutrophils # (Auto) 8.8x10^3uL (1.8-7.7) Lymphocytes # (Auto) 1.1x10^3/uL (1.0-4.8) Monocytes # (Auto) 1.1x10^3/uL (0.0-1.1) Eosinophils # (Auto) 0.2x10^3/uL (0.0-0.7) Basophils # (Auto) 0.0x10^3/uL (0.0-0.2) Sodium Level 141mmol/L (136-145) Potassium Level 3.8mmol/L (3.5-5.1) Chloride Level 97mmol/L (98-107) Carbon Dioxide Level 39mmol/L (21-32) Anion Gap 5 (6-14) Blood Urea Nitrogen 25mg/dL (8-26) Creatinine 1.4mg/dL (0.7-1.3) Estimated GFR (Cockcroft-Gault) 50.7 Glucose Level 153mg/dL (70-99) Hemoglobin A1c 7.0% (4.8-5.6) Calcium Level 9.2mg/dL (8.5-10.1) Troponin I Quantitative 5.920ng/mL (0.000-0.055) Glucose (Fingerstick) 134mg/dL (70-99) 197mg/dL (70-99) 83mg/dL (70-99) Test 12/15/16 20:53 12/16/16 07:27 Glucose (Fingerstick) 122mg/dL (70-99) 188mg/dL (70-99) Laboratory Tests Test 12/15/16 17:31 12/15/16 20:53 12/16/16 07:27 Glucose (Fingerstick) 83mg/dL (70-99) 122mg/dL (70-99) 188mg/dL (70-99) Medications Active Scripts Medications Dose Route/Sig Days Date Category Stiolto Respimat Inhal [place] (Tiotropium Br/Olodaterol HCl) 4 Gm Mist.inhal 4 Gm IH DAILY 11/10/16 Reported Novolog Flexpen (Insulin Aspart) 100 Unit/1 Ml Insuln.pen 1 Unit SQ 11/10/16 Reported Ventolin Hfa Inhaler (Albuterol Sulfate) 18 Gm Hfa.aer.ad 2 Puff INH QID 11/10/16 Reported Flovent 110MCG Hfa (Fluticasone Propionate) 12 Gm Aer.w.adap 2 Puff IH BID 11/10/16 Reported Losartan Potassium 25 Mg Tablet 100 Mg PO DAILY 11/10/16 Reported Levemir (Insulin Detemir) 100 Unit/1 Ml Vial 70 Unit SQ QHS 11/10/16 Reported Impression . 1. Tqfts-nq-laavdgt hypoxemic respiratory failure secondary to cqbnz-kl-knbjkaw systolic heart failure. 2. Nokxr-cu-qmspbtz systolic heart failure. 3. hypertension. 4. Elevated troponin. 5. Type 2 diabetes. 6. Leukocytosis, suspect reactive. 7. Elevated liver chemistries suspect hepatic congestion. Plan . 1. Continue diuresis. 2. Cath today 3. Continue oxygen supplementation. 4. No need for antibiotics or steroids. 5. Consult dietary. 6. Pt on home oxygen at 4 litres GINGER KUMARI MD Dec 16, 2016 12:06
--- NOTE | 2016-12-16 13:37 | PDOC ---
PROGRESS NOTES Subjective Subjective Patient has no complaints. Feeling good today. Objective Objective Vital Signs Date Time Temp Pulse Resp B/P Pulse Ox O2 Delivery O2 Flow Rate FiO2 12/16/16 12:17 16 97 Nasal Cannula 2.0 12/16/16 12:14 88 12/16/16 11:00 98.3 120/56 98.3 Intake and Output 12/16/16 07:00 Intake Total 1320 ml Output Total 2950 ml Balance -1630 ml Intake Oral 1320 ml Output Urine Total 2950 ml Physical Exam Abdomen: Normal bowel sounds, Soft Heart: Regular rate, Normal S1, Normal S2 Extremities: No edema, Normal pulses General: Alert, Oriented X3, Cooperative HEENT: Atraumatic, EOMI Lungs: Clear to auscultation Neuro: Normal speech, Normal tone Psych/Mental Status: Mental status NL, Mood NL Skin: No rashes Assessment Assessment Problems Medical Problems: (1) Acute on chronic diastolic CHF (congestive heart failure) Status: Acute (2) Acute on chronic respiratory failure Status: Acute (3) Cardiac ischemia Status: Acute (4) COPD exacerbation Status: Acute Plan Plan of Care 1. - October 2016 LV EF of 45% with functioning aortic and mitral valves and mild LV dysfunction 2. Cardiac cath today revealed significant Pulmonary HTN and CAD see the full dictated note. Viability Study pending. - Dr. Quiñones consulted for CABG possibly scheduled for Wednesday. Thank you for allowing me the pleasure of taking care of this patient. Comment Review of Relevant I have reviewed the following items thomas (where applicable) has been applied. Labs Laboratory Tests Test 12/14/16 13:50 12/14/16 17:45 12/14/16 17:50 12/14/16 21:27 Lactic Acid Level 0.9mmol/L (0.4-2.0) Glucose (Fingerstick) 131mg/dL (70-99) 195mg/dL (70-99) Troponin I Quantitative 6.405ng/mL (0.000-0.055) Test 12/15/16 04:27 12/15/16 07:42 12/15/16 11:33 12/15/16 17:31 White Blood Count 11.2x10^3/uL (4.0-11.0) Red Blood Count 5.46x10^6/uL (4.30-5.70) Hemoglobin 14.3g/dL (13.0-17.5) Hematocrit 43.7% (39.0-53.0) Mean Corpuscular Volume 80fL (79-100) Mean Corpuscular Hemoglobin 26pg (25-35) Mean Corpuscular Hemoglobin Concent 33g/dL (31-37) Red Cell Distribution Width 15.2% (11.5-14.5) Platelet Count 222x10^3/uL (140-400) Neutrophils (%) (Auto) 79% (31-73) Lymphocytes (%) (Auto) 9% (24-48) Monocytes (%) (Auto) 10% (0-9) Eosinophils (%) (Auto) 2% (0-3) Basophils (%) (Auto) 0% (0-3) Neutrophils # (Auto) 8.8x10^3uL (1.8-7.7) Lymphocytes # (Auto) 1.1x10^3/uL (1.0-4.8) Monocytes # (Auto) 1.1x10^3/uL (0.0-1.1) Eosinophils # (Auto) 0.2x10^3/uL (0.0-0.7) Basophils # (Auto) 0.0x10^3/uL (0.0-0.2) Sodium Level 141mmol/L (136-145) Potassium Level 3.8mmol/L (3.5-5.1) Chloride Level 97mmol/L (98-107) Carbon Dioxide Level 39mmol/L (21-32) Anion Gap 5 (6-14) Blood Urea Nitrogen 25mg/dL (8-26) Creatinine 1.4mg/dL (0.7-1.3) Estimated GFR (Cockcroft-Gault) 50.7 Glucose Level 153mg/dL (70-99) Hemoglobin A1c 7.0% (4.8-5.6) Calcium Level 9.2mg/dL (8.5-10.1) Troponin I Quantitative 5.920ng/mL (0.000-0.055) Glucose (Fingerstick) 134mg/dL (70-99) 197mg/dL (70-99) 83mg/dL (70-99) Test 12/15/16 20:53 12/16/16 07:27 12/16/16 12:37 Glucose (Fingerstick) 122mg/dL (70-99) 188mg/dL (70-99) 83mg/dL (70-99) Laboratory Tests Test 12/15/16 17:31 12/15/16 20:53 12/16/16 07:27 12/16/16 12:37 Glucose (Fingerstick) 83mg/dL (70-99) 122mg/dL (70-99) 188mg/dL (70-99) 83mg/dL (70-99) Microbiology 12/14/16 Blood Culture - Preliminary, Resulted NO GROWTH AFTER 2 DAYS Medications Current Medications Nitroglycerin/ Dextrose (Nitroglycerin Drip) 250 ml @ 0 mls/hr CONT PRN IV SEE I/O RECORD Last administered on 12/14/16 05:15; Start 12/14/16 at 05:15 Albuterol/ Ipratropium (Duoneb) 6 ml 1X ONCE NEB Last administered on 05:17; Start 12/14/16 at 05:30; Stop 12/14/16 at 05:31; Status DC Furosemide (Lasix) 60 mg 1X ONCE IVP Last administered on 12/14/16 06:21; Start 12/14/16 at 06:30; Stop 12/14/16 at 06:31; Status DC Ondansetron HCl 4 mg 4 mg PRN Q8HRS PRN IV NAUSEA/VOMITING; Start 12/14/16 at 06:15; Stop 12/15/16 at 06:14; Status DC Sodium Chloride (Iv Sodium Chloride 0.9% 1000ml Bag) 1,000 ml @ 30 mls/hr Q24H IV Last administered on 12/14/16 06:21; Start 12/14/16 at 06:30; Stop at 06:29; Status DC Acetaminophen (Tylenol) 650 mg PRN Q4HRS PRN PO FEVER Last administered on 12/14 20:35; Start 12/14/16 at 06:15; Stop 12/15/16 at 06:14; Status DC Albuterol/ Ipratropium (Duoneb) 3 ml RTQID NEB Last administered on 12/15/16 07:39; Start 12/14/16 at 08:00; Stop 12/15/16 at 07:59; Status DC Fluticasone Propionate (Flonase) 2 spray DAILY NS Last administered on 09:53; Start 12/15/16 at 09:00 Non-Formulary Medication 4 gm DAILY IH ; Start 12/15/16 at 09:00; Status UNV Insulin Aspart (Novolog) 25 units TIDAC SQ ; Start 12/14/16 at 11:30; Stop 12/14 at 11:55; Status DC Losartan Potassium (Cozaar) 25 mg DAILY PO ; Start 12/15/16 at 09:00; Stop 12/15 at 09:00; Status DC Albuterol Sulfate (Ventolin Neb Soln) 2.5 mg PRN Q4HRS PRN NEB SHORTNESS OF BREATH; Start 12/14/16 at 09:15 Insulin Detemir (Levemir) 70 units QHS SQ Last administered on 12/15/16 21:20 ; Start 12/14/16 at 21:00 Losartan Potassium (Cozaar) 25 mg DAILY PO Last administered on 12/14/16 10:04 ; Start 12/14/16 at 09:15; Stop 12/15/16 at 07:42; Status DC Furosemide (Lasix) 20 mg DAILY PO Last administered on 12/16/16 08:32; Start 12/14/16 at 09:15 Insulin Aspart (Novolog) 0-7 UNITS TIDWMEALS SQ Last administered on 12/15/16 13:14; Start 12/14/16 at 12:00 Dextrose (Dextrose 50%-Water Syringe) 12.5 gm PRN Q15MIN PRN IV SEE COMMENTS; Start 12/14/16 at 09:15 Insulin Aspart (Novolog) 15 units TIDAC SQ Last administered on 12/15/16 13:13 ; Start 12/14/16 at 12:00; Stop 12/15/16 at 14:29; Status DC Furosemide (Lasix) 80 mg Q12HR PO Last administered on 12/15/16 21:13; Start 12/14/16 at 21:00; Stop 12/16/16 at 00:00; Status DC Furosemide (Lasix) 40 mg 1X ONCE PO Last administered on 12/14/16 13:13; Start 12/14/16 at 12:45; Stop 12/14/16 at 12:50; Status DC Furosemide (Lasix) 20 mg 1X ONCE PO ; Start 12/14/16 at 12:45; Stop 12/14/16 at 12:46; Status Cancel Enoxaparin Sodium (Lovenox 80mg Syringe) 80 mg Q12H SQ Last administered on 06:50; Start 12/14/16 at 17:00 Cyclobenzaprine HCl (Flexeril) 5 mg PRN Q6HRS PRN PO MUSCLE SPASMS; Start 12/15 at 07:45 Losartan Potassium (Cozaar) 50 mg DAILY PO Last administered on 12/16/16 08:33 ; Start 12/15/16 at 09:00 Albuterol/ Ipratropium (Duoneb) 3 ml RTQID NEB Last administered on 12/16/16 08:21; Start 12/15/16 at 12:00 Insulin Aspart (Novolog) 30 units TIDAC SQ Last administered on 12/16/16 13:08 ; Start 12/15/16 at 16:30 Acetylcysteine (Mucomyst 20% Oral Solution) 600 mg Q8H PO Last administered on 12/16/16 06:50; Start 12/15/16 at 22:00; Stop 12/16/16 at 06:01; Status DC Non-Formulary Medication 1 ea BID INH Last administered on 12/16/16 08:32; Start 12/15/16 at 21:00 Acetaminophen 650 mg 650 mg PRN Q6HRS PRN PO HEADACHE Last administered on 12/15 19:50; Start 12/15/16 at 19:45 Heparin Sodium/ Sodium Chloride 1,000 ml @ As Directed STK-MED ONCE .ROUTE ; Start 12/16/16 at 08:52; Stop 12/16/16 at 08:53; Status DC Lidocaine HCl 20 ml STK-MED ONCE .ROUTE ; Start 12/16/16 at 08:52; Stop at 08:53; Status DC Iodixanol (Visipaque 320) 100 ml STK-MED ONCE .ROUTE ; Start 12/16/16 at 08:52; Stop 12/16/16 at 08:53; Status DC Fentanyl Citrate (Fentanyl 5ml Vial) 250 mcg STK-MED ONCE .ROUTE ; Start at 11:18; Stop 12/16/16 at 11:19; Status DC Midazolam HCl (Versed) 5 mg STK-MED ONCE .ROUTE ; Start 12/16/16 at 11:18; Stop 12/16/16 at 11:19; Status DC Heparin Sodium/ Sodium Chloride 1,000 unit 1X ONCE IART Last administered on 12:16; Start 12/16/16 at 11:30; Stop 12/16/16 at 11:31; Status DC Midazolam HCl (Versed) 5 mg 1X ONCE IV Last administered on 12/16/16 12:17; Start 12/16/16 at 11:30; Stop 12/16/16 at 11:31; Status DC Fentanyl Citrate (Fentanyl 5ml Vial) 250 mcg 1X ONCE IV Last administered on 12:17; Start 12/16/16 at 11:30; Stop 12/16/16 at 11:31; Status DC Iodixanol (Visipaque 320) 100 ml 1X ONCE IART Last administered on 12/16/16 12:16; Start 12/16/16 at 11:30; Stop 12/16/16 at 11:31; Status DC Lidocaine HCl 20 ml 1X ONCE IJ Last administered on 12/16/16 12:16; Start at 11:30; Stop 12/16/16 at 11:31; Status DC Active Scripts Active Reported Stiolto Respimat Inhal [place] (Tiotropium Br/Olodaterol HCl) 4 Gm Mist.inhal 4 Gm IH DAILY Novolog Flexpen (Insulin Aspart) 100 Unit/1 Ml Insuln.pen 1 Unit SQ Ventolin Hfa Inhaler (Albuterol Sulfate) 18 Gm Hfa.aer.ad 2 Puff INH QID Flovent 110MCG Hfa (Fluticasone Propionate) 12 Gm Aer.w.adap 2 Puff IH BID Losartan Potassium 25 Mg Tablet 100 Mg PO DAILY Levemir (Insulin Detemir) 100 Unit/1 Ml Vial 70 Unit SQ QHS Vitals/I & O Vital Sign - Last 24 Hours 12/15/16 12/15/16 12/15/16 12/15/16 15:35 15:52 19:55 19:59 Temp 98.3 98.0 98.3 98.0 Pulse 81 Resp 22 22 B/P 130/71 132/74 Pulse Ox 96 97 96 O2 Delivery Nasal Cannula Nasal Cannula Nasal Cannula Nasal Cannula O2 Flow Rate 3.0 3.0 12/15/16 12/15/16 12/16/16 12/16/16 21:00 22:38 02:38 07:05 Temp 97.9 98.1 97.8 97.9 98.1 97.8 Pulse 94 88 92 Resp 17 20 20 B/P 119/51 116/75 Pulse Ox 97 92 94 96 O2 Delivery Nasal Cannula Room Air Nasal Cannula Nasal Cannula O2 Flow Rate 3.0 4.0 4.0 12/16/16 12/16/16 12/16/16 12/16/16 08:00 08:23 08:33 11:00 Temp 98.3 98.3 Pulse 83 79 Resp 20 B/P 116/75 120/56 Pulse Ox 97 97 O2 Delivery Nasal Cannula Nasal Cannula Nasal Cannula O2 Flow Rate 3.0 3.0 4.0 12/16/16 12/16/16 12:14 12:17 Pulse 88 Resp 16 16 Pulse Ox 97 97 O2 Delivery Nasal Cannula Nasal Cannula O2 Flow Rate 3.0 2.0 Intake and Output 12/15/16 12/15/16 12/16/16 15:00 23:00 07:00 Intake Total 120 ml 1200 ml Output Total 2000 ml 950 ml Balance 120 ml -800 ml -950 ml ELLE WEBER MD Dec 16, 2016 13:37
--- NOTE | 2016-12-16 14:53 | PDOC2 ---
CONSULT Date of Consult Date of Consult DATE: 12/16/16 TIME: 14:52 Reason for Consult Reason for Consult: Coronary artery disease Referring Physician Referring Physician: Dr. Price Identification/Chief Complaint Chief Complaint Shortness of breath Source Source: Chart review, Patient History of Present Illness Reason for Visit: The patient is a pleasant 66-year-old male who presented to our emergency room 2 days ago with increasing shortness of breath. He was found to be hypoxic, with a chest x-ray showing pulmonary edema. He was treated with noninvasive ventilation and diuresis and his breathing is now much better. He's been having issues with shortness of breath over the past month. He had a recent admission with an analogous episode. It appears that most of his respiratory symptoms have occurred over the past 2-3 months. Up until August 2016 he was very active and was still working. Since his last admission 2 weeks ago he's been taking oxygen at home. He reports occasional angina for some time. On this admission he had a small troponin leak, but no EKG changes. He underwent a coronary angiogram today by Dr. Price which demonstrated a very tight proximal LAD lesion, a tight stenosis of the proximal left circumflex and of a relatively large diagonal branch. There is also a 30-40% stenosis of the ostial left main stem. The right system does not have any significant occlusive disease. On admission he had a limited transthoracic echo which showed an EF of 40-45%. The left ventricular function looks a little worse on his LV gram and is probably in the 25-30% range. I was consulted to consider the patient for surgical coronary revascularization. Past Medical History Cardiovascular: CHF, HTN Pulmonary: COPD GI: No pertinent hx Heme/Onc: No pertinent hx Hepatobiliary: No pertinent hx Psych: No pertinent hx Musculoskeletal: Osteoarthritis Rheumatologic: No pertinent hx Infectious disease: No pertinent hx ENT: No pertinent hx Renal/: No pertinent hx Endocrine: Diabetes Dermatology: No pertinent hx Past Surgical History Past Surgical History: Other (Rotator Cuff) Family History Family History: Heart Disease Social History Quit ALCOHOL: none Drugs: None Current Problem List Problem List Problems Medical Problems: (1) Acute on chronic diastolic CHF (congestive heart failure) Status: Acute (2) Acute on chronic respiratory failure Status: Acute (3) Cardiac ischemia Status: Acute (4) COPD exacerbation Status: Acute Current Medications Current Medications Current Medications Nitroglycerin/ Dextrose (Nitroglycerin Drip) 250 ml @ 0 mls/hr CONT PRN IV SEE I/O RECORD Last administered on 12/14/16 05:15; Start 12/14/16 at 05:15 Albuterol/ Ipratropium (Duoneb) 6 ml 1X ONCE NEB Last administered on 05:17; Start 12/14/16 at 05:30; Stop 12/14/16 at 05:31; Status DC Furosemide (Lasix) 60 mg 1X ONCE IVP Last administered on 12/14/16 06:21; Start 12/14/16 at 06:30; Stop 12/14/16 at 06:31; Status DC Ondansetron HCl 4 mg 4 mg PRN Q8HRS PRN IV NAUSEA/VOMITING; Start 12/14/16 at 06:15; Stop 12/15/16 at 06:14; Status DC Sodium Chloride (Iv Sodium Chloride 0.9% 1000ml Bag) 1,000 ml @ 30 mls/hr Q24H IV Last administered on 12/14/16 06:21; Start 12/14/16 at 06:30; Stop at 06:29; Status DC Acetaminophen (Tylenol) 650 mg PRN Q4HRS PRN PO FEVER Last administered on 12/14 20:35; Start 12/14/16 at 06:15; Stop 12/15/16 at 06:14; Status DC Albuterol/ Ipratropium (Duoneb) 3 ml RTQID NEB Last administered on 12/15/16 07:39; Start 12/14/16 at 08:00; Stop 12/15/16 at 07:59; Status DC Fluticasone Propionate (Flonase) 2 spray DAILY NS Last administered on 09:53; Start 12/15/16 at 09:00 Non-Formulary Medication 4 gm DAILY IH ; Start 12/15/16 at 09:00; Status UNV Insulin Aspart (Novolog) 25 units TIDAC SQ ; Start 12/14/16 at 11:30; Stop 12/14 at 11:55; Status DC Losartan Potassium (Cozaar) 25 mg DAILY PO ; Start 12/15/16 at 09:00; Stop 12/15 at 09:00; Status DC Albuterol Sulfate (Ventolin Neb Soln) 2.5 mg PRN Q4HRS PRN NEB SHORTNESS OF BREATH; Start 12/14/16 at 09:15 Insulin Detemir (Levemir) 70 units QHS SQ Last administered on 12/15/16 21:20 ; Start 12/14/16 at 21:00 Losartan Potassium (Cozaar) 25 mg DAILY PO Last administered on 12/14/16 10:04 ; Start 12/14/16 at 09:15; Stop 12/15/16 at 07:42; Status DC Furosemide (Lasix) 20 mg DAILY PO Last administered on 12/16/16 08:32; Start 12/14/16 at 09:15 Insulin Aspart (Novolog) 0-7 UNITS TIDWMEALS SQ Last administered on 12/15/16 13:14; Start 12/14/16 at 12:00 Dextrose (Dextrose 50%-Water Syringe) 12.5 gm PRN Q15MIN PRN IV SEE COMMENTS; Start 12/14/16 at 09:15 Insulin Aspart (Novolog) 15 units TIDAC SQ Last administered on 12/15/16 13:13 ; Start 12/14/16 at 12:00; Stop 12/15/16 at 14:29; Status DC Furosemide (Lasix) 80 mg Q12HR PO Last administered on 12/15/16 21:13; Start 12/14/16 at 21:00; Stop 12/16/16 at 00:00; Status DC Furosemide (Lasix) 40 mg 1X ONCE PO Last administered on 12/14/16 13:13; Start 12/14/16 at 12:45; Stop 12/14/16 at 12:50; Status DC Furosemide (Lasix) 20 mg 1X ONCE PO ; Start 12/14/16 at 12:45; Stop 12/14/16 at 12:46; Status Cancel Enoxaparin Sodium (Lovenox 80mg Syringe) 80 mg Q12H SQ Last administered on 06:50; Start 12/14/16 at 17:00 Cyclobenzaprine HCl (Flexeril) 5 mg PRN Q6HRS PRN PO MUSCLE SPASMS; Start 12/15 at 07:45 Losartan Potassium (Cozaar) 50 mg DAILY PO Last administered on 12/16/16 08:33 ; Start 12/15/16 at 09:00 Albuterol/ Ipratropium (Duoneb) 3 ml RTQID NEB Last administered on 12/16/16 08:21; Start 12/15/16 at 12:00 Insulin Aspart (Novolog) 30 units TIDAC SQ Last administered on 12/16/16 13:08 ; Start 12/15/16 at 16:30 Acetylcysteine (Mucomyst 20% Oral Solution) 600 mg Q8H PO Last administered on 12/16/16 06:50; Start 12/15/16 at 22:00; Stop 12/16/16 at 06:01; Status DC Non-Formulary Medication 1 ea BID INH Last administered on 12/16/16 08:32; Start 12/15/16 at 21:00 Acetaminophen 650 mg 650 mg PRN Q6HRS PRN PO HEADACHE Last administered on 12/15 19:50; Start 12/15/16 at 19:45 Heparin Sodium/ Sodium Chloride 1,000 ml @ As Directed STK-MED ONCE .ROUTE ; Start 12/16/16 at 08:52; Stop 12/16/16 at 08:53; Status DC Lidocaine HCl 20 ml STK-MED ONCE .ROUTE ; Start 12/16/16 at 08:52; Stop at 08:53; Status DC Iodixanol (Visipaque 320) 100 ml STK-MED ONCE .ROUTE ; Start 12/16/16 at 08:52; Stop 12/16/16 at 08:53; Status DC Fentanyl Citrate (Fentanyl 5ml Vial) 250 mcg STK-MED ONCE .ROUTE ; Start at 11:18; Stop 12/16/16 at 11:19; Status DC Midazolam HCl (Versed) 5 mg STK-MED ONCE .ROUTE ; Start 12/16/16 at 11:18; Stop 12/16/16 at 11:19; Status DC Heparin Sodium/ Sodium Chloride 1,000 unit 1X ONCE IART Last administered on 12:16; Start 12/16/16 at 11:30; Stop 12/16/16 at 11:31; Status DC Midazolam HCl (Versed) 5 mg 1X ONCE IV Last administered on 12/16/16 12:17; Start 12/16/16 at 11:30; Stop 12/16/16 at 11:31; Status DC Fentanyl Citrate (Fentanyl 5ml Vial) 250 mcg 1X ONCE IV Last administered on 12:17; Start 12/16/16 at 11:30; Stop 12/16/16 at 11:31; Status DC Iodixanol (Visipaque 320) 100 ml 1X ONCE IART Last administered on 12/16/16 12:16; Start 12/16/16 at 11:30; Stop 12/16/16 at 11:31; Status DC Lidocaine HCl 20 ml 1X ONCE IJ Last administered on 12/16/16 12:16; Start at 11:30; Stop 12/16/16 at 11:31; Status DC Active Scripts Active Reported Stiolto Respimat Inhal [place] (Tiotropium Br/Olodaterol HCl) 4 Gm Mist.inhal 4 Gm IH DAILY Novolog Flexpen (Insulin Aspart) 100 Unit/1 Ml Insuln.pen 1 Unit SQ Ventolin Hfa Inhaler (Albuterol Sulfate) 18 Gm Hfa.aer.ad 2 Puff INH QID Flovent 110MCG Hfa (Fluticasone Propionate) 12 Gm Aer.w.adap 2 Puff IH BID Losartan Potassium 25 Mg Tablet 100 Mg PO DAILY Levemir (Insulin Detemir) 100 Unit/1 Ml Vial 70 Unit SQ QHS Allergies Allergies: Coded Allergies: No Known Drug Allergies (Unverified , 06/01/14) ROS General: No: Appetite, Chills, Fatigue, Malaise, Night Sweats PSYCHOLOGICAL ROS: No: Anxiety, Behavioral Disorder, Concentration difficultie , Decreased libido, Depression, Disorientation, Hallucinations, Hostility, Irritablity, Memory difficulties, Mood Swings, Obsessive thoughts, Physical abuse, Sexual abuse, Sleep disturbances, Suicidal ideation Eyes: No Blurry vision, No Decreased vision, No Double vision, No Dry eyes, No Excessive tearing, No Eye Pain, No Itchy Eyes, No Loss of vision, No Photophobia , No Scotomata, No Uses contacts, No Uses glasses HEENT: No: Epistaxis, Heacaches, Hearing change, Nasal congestion, Nasal discharge, Oral lesions, Sinus pain, Sneezing, Snoring, Sore Throat, Tinnitus, Vertigo, Visual Changes, Vocal changes ALLERGY AND IMMUNOLOGY: No: Hives, Insect Bite Sensitivity, Itchy/Watery Eyes, Nasal Congestion, Post Nasal Drip, Seasonal Allergies Hematological and Lymphatic: No: Bleeding Problems, Blood Clots, Blood Transfusions, Brusing, Night Sweats, Pallor, Swollen Lymph Nodes ENDOCRINE: No: Breast Changes, Galactorrhea, Hair Pattern Changes, Hot Flashes , Malaise/lethargy, Mood Swings, Palpitations, Polydipsia/polyuria, Skin Changes , Temperature Intolerance, Unexpected Weight Changes Respiratory: YES: Shortness of breath, No: Cough, Hemoptysis, Orthopnea, Pleuritic Pain, SOB with excertion, Sputum Changes, Stridor, Tachypnea, Wheezing Cardiovascular: yes Chest Pain, yes Edema, yes Orthopnea, yes Palpitations, No Lt Headedness, No Paroxysmal Noc. Dyspnea Gastrointestinal: No Abdominal Pain, No Constipation, No Diarrhea, No Hematochezia, No Melena, No Nausea, No Vomiting Genitourinary: No Discharge, No Dysuria, No Flank Pain, No Frequency, No Hematuria, No Incontinence, No Pain, No Retention, No Urgency Musculoskeletal: No Gait Disturbance, No Joint Pain, No Joint Stiffness, No Joint Swelling, No Muscle Pain, No Muscular Weakness, No Pain In:, No Swelling In: Neurological: No Behavorial Changes, No Bowel/Bladder ControlChng, No Confusion , No Dizziness, No Gait Disturbance, No Headaches, No Impaired Coord/balance, No Memory Loss, No Numbness/Tingling, No Seizures, No Speech Problems, No Tremors, No Visual Changes, No Weakness Skin: No Acne, No Dry Skin, No Eczema, No Hair Changes, No Lumps, No Mole Changes, No Mottling, No Nail Changes, No Pruritus, No Rash, No Skin Lesion Changes Physical Exam General: Alert, Oriented X3, No acute distress HEENT: Atraumatic, PERRLA Lungs: Clear to auscultation Heart: Regular rate, Normal S1, Normal S2 Abdomen: Soft, No tenderness Extremities: No edema, Normal pulses Skin: No significant lesion Neuro: Normal gait, Normal speech, Strength at 5/5 X4 ext, Normal tone, Sensation intact, Cranial nerves 3-12 NL Psych/Mental Status: Mental status NL MUSCULOSKELETAL: No deformity Vitals VITALS Vital Signs Date Time Temp Pulse Resp B/P Pulse Ox O2 Delivery O2 Flow Rate FiO2 4/19/17 12:47 18 Nasal Cannula 12/16/16 12:17 97 2.0 12/16/16 12:14 88 12/16/16 11:00 98.3 120/56 98.3 Labs Labs Laboratory Tests Test 12/14/16 17:45 12/14/16 17:50 12/14/16 21:27 12/15/16 04:27 Glucose (Fingerstick) 131mg/dL (70-99) 195mg/dL (70-99) Troponin I Quantitative 6.405ng/mL (0.000-0.055) 5.920ng/mL (0.000-0.055) White Blood Count 11.2x10^3/uL (4.0-11.0) Red Blood Count 5.46x10^6/uL (4.30-5.70) Hemoglobin 14.3g/dL (13.0-17.5) Hematocrit 43.7% (39.0-53.0) Mean Corpuscular Volume 80fL (79-100) Mean Corpuscular Hemoglobin 26pg (25-35) Mean Corpuscular Hemoglobin Concent 33g/dL (31-37) Red Cell Distribution Width 15.2% (11.5-14.5) Platelet Count 222x10^3/uL (140-400) Neutrophils (%) (Auto) 79% (31-73) Lymphocytes (%) (Auto) 9% (24-48) Monocytes (%) (Auto) 10% (0-9) Eosinophils (%) (Auto) 2% (0-3) Basophils (%) (Auto) 0% (0-3) Neutrophils # (Auto) 8.8x10^3uL (1.8-7.7) Lymphocytes # (Auto) 1.1x10^3/uL (1.0-4.8) Monocytes # (Auto) 1.1x10^3/uL (0.0-1.1) Eosinophils # (Auto) 0.2x10^3/uL (0.0-0.7) Basophils # (Auto) 0.0x10^3/uL (0.0-0.2) Sodium Level 141mmol/L (136-145) Potassium Level 3.8mmol/L (3.5-5.1) Chloride Level 97mmol/L (98-107) Carbon Dioxide Level 39mmol/L (21-32) Anion Gap 5 (6-14) Blood Urea Nitrogen 25mg/dL (8-26) Creatinine 1.4mg/dL (0.7-1.3) Estimated GFR (Cockcroft-Gault) 50.7 Glucose Level 153mg/dL (70-99) Hemoglobin A1c 7.0% (4.8-5.6) Calcium Level 9.2mg/dL (8.5-10.1) Test 12/15/16 07:42 12/15/16 11:33 12/15/16 17:31 12/15/16 20:53 Glucose (Fingerstick) 134mg/dL (70-99) 197mg/dL (70-99) 83mg/dL (70-99) 122mg/dL (70-99) Test 12/16/16 07:27 12/16/16 12:37 Glucose (Fingerstick) 188mg/dL (70-99) 83mg/dL (70-99) Laboratory Tests Test 12/15/16 17:31 12/15/16 20:53 12/16/16 07:27 12/16/16 12:37 Glucose (Fingerstick) 83mg/dL (70-99) 122mg/dL (70-99) 188mg/dL (70-99) 83mg/dL (70-99) Assessment/Plan Assessment/Plan The patient is a 66-year-old male, admitted with a non-STEMI with symptoms predominantly of shortness of breath. His symptoms have been present over the past 2-3 months. He is a diabetic, and apparently has a history of COPD. Coronary angiography today demonstrated a very tight proximal LAD lesion and a tight proximal stenosis of a large diagonal and left circumflex. The right system is without any significant disease. His initial echo showed an EF of 45% looks slightly worse on the LV gram at 25%. I think it is possible that most of his respiratory symptoms are secondary to coronary artery disease/ischemic cardiomyopathy. He certainly has an indication to undergo CABG. He would need 3 grafts to the LAD, obtuse marginal and diagonal which are all good targets. Beforehand, I would just like to risk stratify him, predominantly for his COPD. We should also confirm that his ischemic cardiomyopathy is reversible, which it appears to be. Towards this and, we will obtain: Viability study Transthoracic echo to also assess his RV function which previously was mildly impaired. PFTs Noncontrast CT of the chest Carotid duplex Bilateral lower extremity vein mapping We will medically optimize him prior to surgery-will discuss with Dr. Price if the patient would benefit from a little more diuresis. Will plan for CABG either on Wednesday, December 18 or WednesdayDecember 21, given that his preoperative workup does not demonstrate extreme risk Dr Price, thank you for allowing me to participate in the care of your patient. Will continue to follow closely PROSPER NAGEL MD Dec 16, 2016 14:53
--- NOTE | 2016-12-16 15:54 | RAD ---
CT of the chest without contrast, 12/16/2016: History: Preop evaluation for coronary artery disease with CABG Noncontrast scans were obtained as requested. There is mild calcific plaquing of the thoracic aorta without evidence of aneurysm. Moderate scattered coronary artery calcifications are present. The heart is not enlarged. No mediastinal adenopathy is seen. There are mild emphysematous changes in the lungs. There are a few scattered linear scars. There is a moderate linear opacity in the left lower lobe compatible with a scar. There are several adjacent parenchymal calcifications compatible with granulomas. Several other tiny calcified granulomata are present in the right lung. There is a 2.2 cm soft tissue nodule in the left lower lobe. It contains a single slightly eccentric calcification. This does not necessarily mean that this is a benign process as a neoplasm can engulf granulomas or independently calcify. There is a thinner branching soft tissue density extending laterally from this main nodule. This branching process is of lower density and could represent debris in a obstructed, dilated bronchus. This process is best delineated on images [id number] of series #3. There is no evidence of pleural fluid There are moderate scattered degenerative changes in the spine. IMPRESSION: 1. Calcific plaquing of the aorta and coronary arteries. 2. Emphysema with parenchymal scarring. 3. Old healed granulomatous disease in the chest. 4. Left lower lobe pulmonary nodule as described above. Diagnostic considerations include a giant granuloma or a neoplasm. PET/CT scanning may be useful for further evaluation, if clinically indicated. PQRS Compliance Statement: One or more of the following individualized dose reduction techniques were utilized for this examination: 1. Automated exposure control 2. Adjustment of the mA and/or kV according to patient size 3. Use of iterative reconstruction technique
--- NOTE | 2016-12-16 17:54 | CARD ---
APPROVED REPORT EXAM: Two-dimensional and M-mode echocardiogram with Doppler and color Doppler. Other Information Quality : Average Rhythm : Atrial Fibrillation INDICATION Atrial Fibrillation LV Function:Systolic 2D DIMENSIONS RVDd3.8 (2.9-3.5cm)Left Atrium(2D)4.7 (1.6-4.0cm) IVSd1.1 (0.7-1.1cm)Aortic Root(2D)2.3 (2.0-3.7cm) LVDd4.7 (3.9-5.9cm)LVOT Diameter2.3 (1.8-2.4cm) PWd1.1 (0.7-1.1cm)LVDs3.8 (2.5-4.0cm) FS (%) 18.9 %SV39.1 ml LVEF(%)35.0 (>50%) Aortic Valve AoV Peak Vivek.98.1cm/sAoV VTI19.8cm AO Peak GR.3.9mmHgLVOT Peak Vivek.98.5cm/s AO Mean GR.2mmHgAVA (VMAX)4.20cm2 Mitral Valve MV E Peak Gr.3mmHgMV E Mean Gr.1mmHg Pulmonary Valve PV Peak Qeiaiulz646.1cm/s LEFT VENTRICLE The left ventricle is normal size. There is normal left ventricular wall thickness. Left ventricle sy stolic function is impaired. The Ejection Fraction is 35%. Unable to assess diastolic function. RIGHT VENTRICLE The right ventricle is mildly dilated. The right ventricular systolic function is normal. ATRIA The left atrium size is normal. The right atrium size is normal. The interatrial septum is intact wit h no evidence for an atrial septal defect or patent foramen ovale as noted on 2-D or Doppler imaging. AORTIC VALVE The aortic valve is normal in structure and function. The aortic valve is trileaflet. Doppler and Col or Flow revealed no significant aortic regurgitation. There is no significant aortic valvular stenosi s. MITRAL VALVE The mitral valve leaflets are thickened. There is no evidence of mitral valve prolapse. There is no m itral valve stenosis. Doppler and Color Flow revealed no mitral valve regurgitation noted. TRICUSPID VALVE The tricuspid valve is normal in structure and function. Doppler and Color Flow revealed no tricuspid valve regurgitation noted. Unable to estimate PA pressure. There is no tricuspid valve stenosis. PULMONIC VALVE The pulmonary valve is normal in structure and function. Doppler and Color Flow revealed no pulmonic valvular regurgitation. There is no pulmonic valvular stenosis. GREAT VESSELS The aortic root is normal in size. The IVC is normal in size and collapses >50% with inspiration. PERICARDIAL EFFUSION There is a trace of pericardial effusion. Critical Notification Critical Value: No <Conclusion> Left ventricle systolic function is impaired. The Ejection Fraction is 35%. The right ventricle is mildly dilated. The right ventricular systolic function is normal. The left atrium size is normal. The right atrium size is normal. The aortic valve is normal in structure and function. The aortic valve is trileaflet. The mitral valve leaflets are thickened. Doppler and Color Flow revealed no mitral valve regurgitation noted. Doppler and Color Flow revealed no tricuspid valve regurgitation noted. Unable to estimate PA pressur e. The pulmonary valve is normal in structure and function. There is a trace of pericardial effusion.
--- NOTE | 2016-12-16 18:06 | CARD ---
APPROVED REPORT HISTORY The patient is a 66 year-old male with a history of : coronary artery disease, chronic lung disease, tobacco history() , hypertension, dyslipidemia. INDICATION The indication(s) include : non-STEMI , chest pain, dyspnea. CASE TECHNIQUE The patient was brought electively into the cardiac catheterization lab. A timeout was performed conf irming the patient's name, date of , procedure, and site of procedure. All necessary parties wer e wearing the appropriate personal protective equipment and radiation monitoring devices. After expla ining the risks and benefits of the procedure, informed consent was obtained.(See nursing notes for m edications administered). The right groin was sterilely prepped and draped. The right femoral groin w as infiltrated with 2% Lidocaine subcutaneous anesthesia. During this case, Fluoroscopy and low osmol ar contrast were used for imaging. A sheath was inserted into the right femoral artery without diffic ulty. Coronary angiography was performed using coronary diagnostic catheters. The left coronary syste m was accessed and visualized with a Diagnostic catheter. The right coronary system was accessed and visualized with a Diagnostic catheter. The left ventricle was accessed and visualized with a Diagnost ic catheter. Left ventricular/Aortic Valve gradient assessed on pullback. Left ventriculogram was per formed in SNOW projection. A Right Heart Catheterization was performed with a 7.5 Fr. [place] cathet er and pressure were recorded. Pre-demployment femoral angiogram was performed . Closure device was d eployed with a Angioseal without any complications. The patient tolerated the procedure well and ther e were no complications associated with the procedure. Coronary Angiography The patient's coronary anatomy is co-dominant. The left main coronary artery is a large size vessel . There is a 45% stenosis in the ostial segment. The left main bifurcates to the left anterior descending and circumflex. The left anterior descending artery is a large size vessel with stenosis. There is a 99% stenosis in the proximal segment. The first diagonal branch is a large size vessel with stenosis. There is a 95% stenosis in the proximal segment. The second diagonal branch is a large size vessel with intimal irre gularities and without significant stenosis. The third diagonal branch is a small size vessel with in timal irregularities and without significant stenosis. The circumflex artery is a medium size vessel with stenosis. There is a 80% stenosis in the proximal segment. The first obtuse marginal branch is a large size vessel with intimal irregularities and with out significant stenosis. The second obtuse marginal branch is a large size vessel with intimal irreg ularities and without significant stenosis. The third obtuse marginal branch is a medium size vessel with intimal irregularities and without significant stenosis. The right coronary artery is a large size vessel with intimal irregularities and without significant stenosis. The right posterior descending artery is a medium size vessel with intimal irregularities a nd without significant stenosis. The right posterolateral branch is a small size vessel with intimal irregularities and without significant stenosis. Left Ventriculography The left ventricle is mildly dilated in size with decreased contractility. The left ventricular eject ion fraction is estimated to be 30%. The left ventricular end diastolic pressure is 23 mmHg. There wa s no gradient across the aortic valve upon pullback. Right Heart Cath Findings The Right Atrial Pressure is 18 mmHg. The Right Ventricular Pressure is 54/12 mmHg. The Pulmonary Art shannan Pressure is 52/24 mmHg. The Pulmonary Catheter Wedge Pressure is 24 mmHg. Conclusion This pt with significant CAD that has a LM equivalent disease needs a surgical consult for possible C ABGS. The pt's anterior wall flow may be compromised and this area may be hybernating. Will get a viability study to asses this area of the myocardium
[2016-12-16] MEDS: INSULIN DETEMIR 300 UNITS/3 ML INSULN.PEN. SQ SCH (21:26)
[2016-12-16 23:14] LABS: INR 1.2 (0.8-1.1)
[2016-12-17 03:49] VITALS: BP 127/65
[2016-12-17 04:34] LABS: BASO % 0 % (0-3); EOS % 4 % (0-3); HEMATOCRIT 40.3 % (39.0-53.0); HEMOGLOBIN 12.9 g/dL (13.0-17.5); LYMPH # 1.1 x10^3/uL (1.0-4.8); LYMPH % 14 % (24-48); MEAN CORPUSCULAR HEMOGLOBIN 26 pg (25-35); MEAN CORPUSCULAR HGB CONC 32 g/dL (31-37); MEAN CORPUSCULAR VOLUME 82 fL (79-100); MONO % 12 % (0-9); NEUT % 70 % (31-73); PLATELET COUNT 193 x10^3/uL (140-400); RED BLOOD COUNT 4.92 x10^6/uL (4.30-5.70); RED CELL DISTRIBUTION WIDTH 15.1 % (11.5-14.5)
[2016-12-17 04:51] LABS: ALBUMIN 3.1 g/dL (3.4-5.0); ALBUMIN/GLOBULIN RATIO 0.9 (1.0-1.7); CALCIUM 8.3 mg/dL (8.5-10.1); CREATININE 1.3 mg/dL (0.7-1.3); GFR 55.2; POTASSIUM 3.4 mmol/L (3.5-5.1); TOTAL PROTEIN 6.4 g/dL (6.4-8.2)
[2016-12-17 07:00] VITALS: BP 113/46
[2016-12-17] MEDS: INSULIN ASPART 300 UNITS/3 ML INSULN.PEN SQ SCH ×6 (07:30→18:03)
--- NOTE | 2016-12-17 08:08 | PDOC ---
SUBJECTIVE Subjective Pt with heart catheterization yesterday showing significant CAD. Pt being scheduled for CABG possibly this Wednesday or Wednesday. Feeling well this morning OBJECTIVE Vital Signs Vital Signs Date Time Temp Pulse Resp B/P Pulse Ox O2 Delivery O2 Flow Rate FiO2 12/17/16 03:49 98.6 71 16 127/65 99 Nasal Cannula 3.0 98.6 12/16/16 22:07 98.2 88 18 117/58 96 Nasal Cannula 3.0 98.2 12/16/16 20:09 96 Nasal Cannula 3.0 12/16/16 20:00 Nasal Cannula 3.0 12/16/16 19:24 98.3 95 18 140/70 93 Nasal Cannula 2.0 98.3 12/16/16 16:17 Nasal Cannula 3.0 12/16/16 15:00 98.3 78 20 114/56 97 Nasal Cannula 4.0 98.3 12/16/16 14:01 88 107/47 12/16/16 13:31 78 105/61 12/16/16 13:05 90 104/61 12/16/16 12:50 88 107/69 12/16/16 12:47 18 Nasal Cannula 12/16/16 12:35 82 134/72 12/16/16 12:17 16 97 Nasal Cannula 2.0 12/16/16 12:14 88 16 97 Nasal Cannula 3.0 12/16/16 11:00 98.3 79 20 120/56 97 Nasal Cannula 4.0 98.3 12/16/16 08:33 83 116/75 12/16/16 08:23 97 Nasal Cannula 3.0 I & O Intake and Output 12/17/16 07:00 Intake Total 1950 ml Output Total 2350 ml Balance -400 ml Intake Oral 1950 ml Output Urine Total 2350 ml PHYSICAL EXAM Physical Exam General: Alert, Oriented X3, Cooperative, NAD HEENT: Atraumatic, PERRLA, EOMI, Mucous membr. moist/pink Lungs: Clear to auscultation, Normal air movement Heart: RRR, no rubs, no gallops, no murmurs Abdomen: Normal bowel sounds, Other (distended) Extremities: No clubbing, No cyanosis, no erythema/edema LE bilaterally Skin: No rashes, No breakdown, No significant lesion Neuro: Normal tone, Sensation intact, Cranial nerves 3-12 NL Psych/Mental Status: Mental status NL, Mood NL ASSESSMENT/PLAN Assessment/Plan Pt is a 66yo CM admitted for acute on chronic respiratory failure 1)Acute on Chronic Respiratory failure- 2/2 CHF exacerbation, resolved. Pt had been receiving additional doses of Lasix, now back on normal dose of Lasix 20mg. Good net negative I/O's. Cardiology and Pulmonology following 2)CAD- pt's heart catheterization yesterday showed significant CAD. Pt being scheduled for CABG this Wednesday or Wednesday. 3)Accelerated HTN- pt was initially on Nitro gtt, improved on increased dose of Losartan 50mg. 4)DM2- well controlled with HbA1C this admission of 7. Pt continued on home insulin of Levemir 70 units QHS, and Novolog decreased to 30 units QAC. Has SSI available. 5)Leukocytosis- resolved. Pt afebrile and without symptoms of infection. CTM 6)Elevated AST- likely 2/2 hepatic congestion, CTM 7)Acute on CKD- 2/2 diuretic use, resolved Problems: COMMENT Lab Laboratory Tests Test 12/16/16 12:37 12/16/16 17:13 12/16/16 20:22 12/16/16 22:55 Glucose (Fingerstick) 83mg/dL (70-99) 157mg/dL (70-99) 91mg/dL (70-99) Prothrombin Time 14.0SEC (11.7-14.0) Prothromb Time International Ratio 1.2 (0.8-1.1) Activated Partial Thromboplast Time 37SEC (24-38) Test 12/17/16 04:05 White Blood Count 8.0x10^3/uL (4.0-11.0) Red Blood Count 4.92x10^6/uL (4.30-5.70) Hemoglobin 12.9g/dL (13.0-17.5) Hematocrit 40.3% (39.0-53.0) Mean Corpuscular Volume 82fL (79-100) Mean Corpuscular Hemoglobin 26pg (25-35) Mean Corpuscular Hemoglobin Concent 32g/dL (31-37) Red Cell Distribution Width 15.1% (11.5-14.5) Platelet Count 193x10^3/uL (140-400) Neutrophils (%) (Auto) 70% (31-73) Lymphocytes (%) (Auto) 14% (24-48) Monocytes (%) (Auto) 12% (0-9) Eosinophils (%) (Auto) 4% (0-3) Basophils (%) (Auto) 0% (0-3) Neutrophils # (Auto) 5.6x10^3uL (1.8-7.7) Lymphocytes # (Auto) 1.1x10^3/uL (1.0-4.8) Monocytes # (Auto) 1.0x10^3/uL (0.0-1.1) Eosinophils # (Auto) 0.3x10^3/uL (0.0-0.7) Basophils # (Auto) 0.0x10^3/uL (0.0-0.2) Sodium Level 140mmol/L (136-145) Potassium Level 3.4mmol/L (3.5-5.1) Chloride Level 99mmol/L (98-107) Carbon Dioxide Level 37mmol/L (21-32) Anion Gap 4 (6-14) Blood Urea Nitrogen 24mg/dL (8-26) Creatinine 1.3mg/dL (0.7-1.3) Estimated GFR (Cockcroft-Gault) 55.2 BUN/Creatinine Ratio 18 (6-20) Glucose Level 104mg/dL (70-99) Calcium Level 8.3mg/dL (8.5-10.1) Total Bilirubin 1.0mg/dL (0.2-1.0) Aspartate Amino Transf (AST/SGOT) 52U/L (15-37) Alanine Aminotransferase (ALT/SGPT) 55U/L (16-63) Alkaline Phosphatase 71U/L (46-116) Total Protein 6.4g/dL (6.4-8.2) Albumin 3.1g/dL (3.4-5.0) Albumin/Globulin Ratio 0.9 (1.0-1.7) JUAN VALENCIA MD Dec 17, 2016 08:08
[2016-12-17] MEDS: IPRATRPIUM/ALBUTEROL 0.5/2.5MG 3 ML NEBU. NEB SCH ×4 (08:24→20:55)
[2016-12-17] MEDS ORDERED: POTASSIUM CHLORIDE 20 MEQ TABLET.ER. PO ONE (08:30)
[2016-12-17] MEDS: FLUTICASONE 50MCG/NASAL SPRAY 16GM BOTTLE. NS SCH (09:00)
[2016-12-17 11:16] VITALS: BP 133/68
[2016-12-17] MEDS: FLOVENT 100 MCG INH SCH ×2 (11:51→21:00)
[2016-12-17] MEDS: LOSARTAN POTASSIUM 50 MG TABLET. PO SCH (11:52)
[2016-12-17] MEDS: FUROSEMIDE 20 MG TABLET PO SCH (11:52)
[2016-12-17] MEDS: NEOMY/BACITR/POLYMYXIN OINT PACKET. TP SCH ×2 (11:53→20:35)
--- NOTE | 2016-12-17 12:17 | PDOC ---
PULMONARY PROGRESS NOTES Subjective feels better Vitals Vital Signs Date Time Temp Pulse Resp B/P Pulse Ox O2 Delivery O2 Flow Rate FiO2 12/17/16 11:52 79 133/68 12/17/16 11:16 97.8 24 98 Nasal Cannula 97.8 12/17/16 08:24 3.0 General: Alert, No acute distress Lungs: Clear Cardiovascular: S1 Abdomen: Soft, Other (obese) Neuro Exam: Alert Extremities: Other (trace edema) Skin: Warm Labs Laboratory Tests Test 12/15/16 17:31 12/15/16 20:53 12/16/16 07:27 12/16/16 12:37 Glucose (Fingerstick) 83mg/dL (70-99) 122mg/dL (70-99) 188mg/dL (70-99) 83mg/dL (70-99) Test 12/16/16 17:13 12/16/16 20:22 12/16/16 22:55 12/17/16 04:05 Glucose (Fingerstick) 157mg/dL (70-99) 91mg/dL (70-99) Prothrombin Time 14.0SEC (11.7-14.0) Prothromb Time International Ratio 1.2 (0.8-1.1) Activated Partial Thromboplast Time 37SEC (24-38) White Blood Count 8.0x10^3/uL (4.0-11.0) Red Blood Count 4.92x10^6/uL (4.30-5.70) Hemoglobin 12.9g/dL (13.0-17.5) Hematocrit 40.3% (39.0-53.0) Mean Corpuscular Volume 82fL (79-100) Mean Corpuscular Hemoglobin 26pg (25-35) Mean Corpuscular Hemoglobin Concent 32g/dL (31-37) Red Cell Distribution Width 15.1% (11.5-14.5) Platelet Count 193x10^3/uL (140-400) Neutrophils (%) (Auto) 70% (31-73) Lymphocytes (%) (Auto) 14% (24-48) Monocytes (%) (Auto) 12% (0-9) Eosinophils (%) (Auto) 4% (0-3) Basophils (%) (Auto) 0% (0-3) Neutrophils # (Auto) 5.6x10^3uL (1.8-7.7) Lymphocytes # (Auto) 1.1x10^3/uL (1.0-4.8) Monocytes # (Auto) 1.0x10^3/uL (0.0-1.1) Eosinophils # (Auto) 0.3x10^3/uL (0.0-0.7) Basophils # (Auto) 0.0x10^3/uL (0.0-0.2) Sodium Level 140mmol/L (136-145) Potassium Level 3.4mmol/L (3.5-5.1) Chloride Level 99mmol/L (98-107) Carbon Dioxide Level 37mmol/L (21-32) Anion Gap 4 (6-14) Blood Urea Nitrogen 24mg/dL (8-26) Creatinine 1.3mg/dL (0.7-1.3) Estimated GFR (Cockcroft-Gault) 55.2 BUN/Creatinine Ratio 18 (6-20) Glucose Level 104mg/dL (70-99) Calcium Level 8.3mg/dL (8.5-10.1) Total Bilirubin 1.0mg/dL (0.2-1.0) Aspartate Amino Transf (AST/SGOT) 52U/L (15-37) Alanine Aminotransferase (ALT/SGPT) 55U/L (16-63) Alkaline Phosphatase 71U/L (46-116) Total Protein 6.4g/dL (6.4-8.2) Albumin 3.1g/dL (3.4-5.0) Albumin/Globulin Ratio 0.9 (1.0-1.7) Test 12/17/16 08:07 12/17/16 11:51 Glucose (Fingerstick) 121mg/dL (70-99) 118mg/dL (70-99) Laboratory Tests Test 12/16/16 12:37 12/16/16 17:13 12/16/16 20:22 12/16/16 22:55 Glucose (Fingerstick) 83mg/dL (70-99) 157mg/dL (70-99) 91mg/dL (70-99) Prothrombin Time 14.0SEC (11.7-14.0) Prothromb Time International Ratio 1.2 (0.8-1.1) Activated Partial Thromboplast Time 37SEC (24-38) Test 12/17/16 04:05 12/17/16 08:07 12/17/16 11:51 White Blood Count 8.0x10^3/uL (4.0-11.0) Red Blood Count 4.92x10^6/uL (4.30-5.70) Hemoglobin 12.9g/dL (13.0-17.5) Hematocrit 40.3% (39.0-53.0) Mean Corpuscular Volume 82fL (79-100) Mean Corpuscular Hemoglobin 26pg (25-35) Mean Corpuscular Hemoglobin Concent 32g/dL (31-37) Red Cell Distribution Width 15.1% (11.5-14.5) Platelet Count 193x10^3/uL (140-400) Neutrophils (%) (Auto) 70% (31-73) Lymphocytes (%) (Auto) 14% (24-48) Monocytes (%) (Auto) 12% (0-9) Eosinophils (%) (Auto) 4% (0-3) Basophils (%) (Auto) 0% (0-3) Neutrophils # (Auto) 5.6x10^3uL (1.8-7.7) Lymphocytes # (Auto) 1.1x10^3/uL (1.0-4.8) Monocytes # (Auto) 1.0x10^3/uL (0.0-1.1) Eosinophils # (Auto) 0.3x10^3/uL (0.0-0.7) Basophils # (Auto) 0.0x10^3/uL (0.0-0.2) Sodium Level 140mmol/L (136-145) Potassium Level 3.4mmol/L (3.5-5.1) Chloride Level 99mmol/L (98-107) Carbon Dioxide Level 37mmol/L (21-32) Anion Gap 4 (6-14) Blood Urea Nitrogen 24mg/dL (8-26) Creatinine 1.3mg/dL (0.7-1.3) Estimated GFR (Cockcroft-Gault) 55.2 BUN/Creatinine Ratio 18 (6-20) Glucose Level 104mg/dL (70-99) Calcium Level 8.3mg/dL (8.5-10.1) Total Bilirubin 1.0mg/dL (0.2-1.0) Aspartate Amino Transf (AST/SGOT) 52U/L (15-37) Alanine Aminotransferase (ALT/SGPT) 55U/L (16-63) Alkaline Phosphatase 71U/L (46-116) Total Protein 6.4g/dL (6.4-8.2) Albumin 3.1g/dL (3.4-5.0) Albumin/Globulin Ratio 0.9 (1.0-1.7) Glucose (Fingerstick) 121mg/dL (70-99) 118mg/dL (70-99) Medications Active Scripts Medications Dose Route/Sig Days Date Category Stiolto Respimat Inhal [place] (Tiotropium Br/Olodaterol HCl) 4 Gm Mist.inhal 4 Gm IH DAILY 11/10/16 Reported Novolog Flexpen (Insulin Aspart) 100 Unit/1 Ml Insuln.pen 1 Unit SQ 11/10/16 Reported Ventolin Hfa Inhaler (Albuterol Sulfate) 18 Gm Hfa.aer.ad 2 Puff INH QID 11/10/16 Reported Flovent 110MCG Hfa (Fluticasone Propionate) 12 Gm Aer.w.adap 2 Puff IH BID 11/10/16 Reported Losartan Potassium 25 Mg Tablet 100 Mg PO DAILY 11/10/16 Reported Levemir (Insulin Detemir) 100 Unit/1 Ml Vial 70 Unit SQ QHS 11/10/16 Reported Impression . 1. Btqbi-zr-ujkpaky hypoxemic respiratory failure secondary to yovsr-me-zordnfw systolic heart failure. 2. Tstpe-ou-slpppkz systolic heart failure. 3. hypertension. 4. Elevated troponin. 5. Type 2 diabetes. 6. Leukocytosis, suspect reactive. 7. Elevated liver chemistries suspect hepatic congestion. resolved 8. COPD,moderate FEV1 1.3(41%) Predicted 9. Multivessel CAD 10. 2.2 cm mass with eccentric calcification, ? malignancy vs hemartoma Plan . 1. s/p cath . MV CAD, not the best optimum candidate for surgery . d/w Dr Ogden 2. CT Chest with 2.2 cm left lung mass with eccentric calcification, could be Hamartoma, cannot exclude Neoplasm. would benefit from OP PET, since CABG is cancelled , Cardiology to consider PCI. would recommend stabilizing cardiac status first before persuing with any invasive biopsy such as Bronch or ct guided lung biopsy. would recommend OP PET first. If Hypermetabolic mass,then have to wait 3-4 weeks before invasive biopsy and stabilization of cardiac status (may need at least 4-6 week an anti-platelet therapy ) 3. Continue oxygen supplementation. 4. No need for antibiotics or steroids. 5. d/w Dr Price and Dr Ogden 6. Pt on home oxygen at 4 litres. GINGER KUMARI MD Dec 17, 2016 12:17
[2016-12-17] MEDS ORDERED: NITROGLYCERIN SUBLINGUAL 0.4 MG BOTTLE OF 25. SL ONE ×2 (13:00→13:09)
[2016-12-17] MEDS ORDERED: NITROGLYCERIN SUBLINGUAL 0.4 MG BOTTLE OF 25. SL PRN (13:15)
[2016-12-17] MEDS ORDERED: DILTIAZEM 125 MG in IV DEXTROSE 5% 100 ML IV PRN (13:30)
[2016-12-17] MEDS ORDERED: DILTIAZEM IV PUSH 25 MG/5 ML VIAL. IVP ONE (13:45)
--- NOTE | 2016-12-17 14:39 | PDOC ---
Provider Note Provider Note I reviewed Mr. Gold's preoperative tests. Unfortunately he has a 2.2 cm mass in the superior segment of the left lower lobe. Based on Hounsfield units, the tumor appears to be solid. There is no fatty tissue within the tumor. He also has a branching pattern. These findings are very concerning for a primary lung cancer. In addition he has severe COPD, he is currently on 4 L of oxygen at home, FEV1 is 40%, and also has some moderate pulmonary hypertension with PA pressures in the 50s. The incidental finding of this lung mass is also now a priority. Not knowing what the prognosis of this lung tumor is, I think it would be best to proceed with PCI, rather than CABG. These findings were discussed with the patient. I will also discuss with Dr. Price. PROSPER NAGEL MD Dec 17, 2016 14:39
--- NOTE | 2016-12-17 15:21 | EKG ---
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
[2016-12-17 15:43] VITALS: BP 120/66
--- NOTE | 2016-12-17 15:49 | RAD ---
APPROVED REPORT Patient Location: IN-PATIENT Laterality:Bilateral Indications pre op cabg Risk Factors Diabetes prev smoker x 42 yrs Doppler Spectral Velocity Analysis Right Left pCCA 78/21 cm/spCCA 127/27 cm/s mCCA 95/17 cm/smCCA 117/26 cm/s dCCA 75/17 cm/sdCCA 71/19 cm/s ECA 183/ cm/sECA 132/ cm/s pICA 86/22 cm/spICA 84/19 cm/s Tarah 100/25 cm/smICA 76/25 cm/s dICA 94/31 cm/sdICA 95/36 cm/s Vert. 68/ cm/sVert. 45/ cm/s ICA/CCA 1.05ICA/CCA 0.75 Findings Sánchez scale images of the bilateral common carotid, external carotid and internal carotid arteries dem onstrate diffuse circumferential intimal thickening of mild to moderate degree. On the right the external carotid artery has elevated velocities suggestive of moderate stenosis. The internal carotid artery has normal velocity profiles and has 0-50% stenosis. The vertebral artery ve locities are antegrade. Normal ratios are noted. On the left there is mildly elevated systolic velocities in the common carotid artery without any sig nificant obstructive disease noted in the internal carotid artery based on velocity profiles. Less th an 50% stenosis. Antegrade vertebral velocities noted. Critical Notification Critical Value: No <Conclusion> No significant bilateral carotid artery stenosis. Antegrade vertebral velocities although diminished.
[2016-12-17 19:35] VITALS: BP 116/62
--- NOTE | 2016-12-17 19:37 | PDOC ---
PROGRESS NOTES Subjective Subjective The patient had an episode of chest pain earlier requiring some nitroglycerin. No chest pains at this time. A CT of the chest was done and it showed: CT of the chest without contrast, 12/16/2016: History: Preop evaluation for coronary artery disease with CABG Noncontrast scans were obtained as requested. There is mild calcific plaquing of the thoracic aorta without evidence of aneurysm. Moderate scattered coronary artery calcifications are present. The heart is not enlarged. No mediastinal adenopathy is seen. There are mild emphysematous changes in the lungs. There are a few scattered linear scars. There is a moderate linear opacity in the left lower lobe compatible with a scar. There are several adjacent parenchymal calcifications compatible with granulomas. Several other tiny calcified granulomata are present in the right lung. There is a 2.2 cm soft tissue nodule in the left lower lobe. It contains a single slightly eccentric calcification. This does not necessarily mean that this is a benign process as a neoplasm can engulf granulomas or independently calcify. There is a thinner branching soft tissue density extending laterally from this main nodule. This branching process is of lower density and could represent debris in a obstructed, dilated bronchus. This process is best delineated on images [id number] of series #3. Objective Objective Vital Signs Date Time Temp Pulse Resp B/P Pulse Ox O2 Delivery O2 Flow Rate FiO2 12/17/16 16:15 Nasal Cannula 3.0 12/17/16 15:43 98.0 86 22 120/66 96 98.0 Intake and Output 12/17/16 07:00 Intake Total 1950 ml Output Total 2350 ml Balance -400 ml Intake Oral 1950 ml Output Urine Total 2350 ml Physical Exam Physical Exam No significant changes in cardiac exam Assessment Assessment This patient has significant COPD, severe coronary artery disease, and appears to have a mass in the long that seems to be a malignancy. The case was discussed with the cardiovascular surgeon as well as the service desk team lead and the consensus was that the patient should not undergo coronary artery bypass surgery but rather have stenting of the LAD with a bare metal stent and that down the road to have further evaluation of the lung mass. I agree with this approach and even though this is a risky procedure on this patient I have discussed the situation options and risks with the patient and he was decided to proceed tomorrow with a stenting of the LAD and perhaps the diagonal. The patient agreed with this approach. Problems Medical Problems: (1) Acute on chronic diastolic CHF (congestive heart failure) Status: Acute (2) Acute on chronic respiratory failure Status: Acute (3) Cardiac ischemia Status: Acute (4) COPD exacerbation Status: Acute Comment Review of Relevant I have reviewed the following items thomas (where applicable) has been applied. Labs Laboratory Tests Test 12/15/16 20:53 12/16/16 07:27 12/16/16 12:37 12/16/16 17:13 Glucose (Fingerstick) 122mg/dL (70-99) 188mg/dL (70-99) 83mg/dL (70-99) 157mg/dL (70-99) Test 12/16/16 20:22 12/16/16 22:55 12/17/16 04:05 12/17/16 08:07 Glucose (Fingerstick) 91mg/dL (70-99) 121mg/dL (70-99) Prothrombin Time 14.0SEC (11.7-14.0) Prothromb Time International Ratio 1.2 (0.8-1.1) Activated Partial Thromboplast Time 37SEC (24-38) White Blood Count 8.0x10^3/uL (4.0-11.0) Red Blood Count 4.92x10^6/uL (4.30-5.70) Hemoglobin 12.9g/dL (13.0-17.5) Hematocrit 40.3% (39.0-53.0) Mean Corpuscular Volume 82fL (79-100) Mean Corpuscular Hemoglobin 26pg (25-35) Mean Corpuscular Hemoglobin Concent 32g/dL (31-37) Red Cell Distribution Width 15.1% (11.5-14.5) Platelet Count 193x10^3/uL (140-400) Neutrophils (%) (Auto) 70% (31-73) Lymphocytes (%) (Auto) 14% (24-48) Monocytes (%) (Auto) 12% (0-9) Eosinophils (%) (Auto) 4% (0-3) Basophils (%) (Auto) 0% (0-3) Neutrophils # (Auto) 5.6x10^3uL (1.8-7.7) Lymphocytes # (Auto) 1.1x10^3/uL (1.0-4.8) Monocytes # (Auto) 1.0x10^3/uL (0.0-1.1) Eosinophils # (Auto) 0.3x10^3/uL (0.0-0.7) Basophils # (Auto) 0.0x10^3/uL (0.0-0.2) Sodium Level 140mmol/L (136-145) Potassium Level 3.4mmol/L (3.5-5.1) Chloride Level 99mmol/L (98-107) Carbon Dioxide Level 37mmol/L (21-32) Anion Gap 4 (6-14) Blood Urea Nitrogen 24mg/dL (8-26) Creatinine 1.3mg/dL (0.7-1.3) Estimated GFR (Cockcroft-Gault) 55.2 BUN/Creatinine Ratio 18 (6-20) Glucose Level 104mg/dL (70-99) Calcium Level 8.3mg/dL (8.5-10.1) Total Bilirubin 1.0mg/dL (0.2-1.0) Aspartate Amino Transf (AST/SGOT) 52U/L (15-37) Alanine Aminotransferase (ALT/SGPT) 55U/L (16-63) Alkaline Phosphatase 71U/L (46-116) Total Protein 6.4g/dL (6.4-8.2) Albumin 3.1g/dL (3.4-5.0) Albumin/Globulin Ratio 0.9 (1.0-1.7) Test 12/17/16 11:51 12/17/16 13:17 12/17/16 16:40 Glucose (Fingerstick) 118mg/dL (70-99) 193mg/dL (70-99) 224mg/dL (70-99) Laboratory Tests Test 12/16/16 20:22 12/16/16 22:55 12/17/16 04:05 12/17/16 08:07 Glucose (Fingerstick) 91mg/dL (70-99) 121mg/dL (70-99) Prothrombin Time 14.0SEC (11.7-14.0) Prothromb Time International Ratio 1.2 (0.8-1.1) Activated Partial Thromboplast Time 37SEC (24-38) White Blood Count 8.0x10^3/uL (4.0-11.0) Red Blood Count 4.92x10^6/uL (4.30-5.70) Hemoglobin 12.9g/dL (13.0-17.5) Hematocrit 40.3% (39.0-53.0) Mean Corpuscular Volume 82fL (79-100) Mean Corpuscular Hemoglobin 26pg (25-35) Mean Corpuscular Hemoglobin Concent 32g/dL (31-37) Red Cell Distribution Width 15.1% (11.5-14.5) Platelet Count 193x10^3/uL (140-400) Neutrophils (%) (Auto) 70% (31-73) Lymphocytes (%) (Auto) 14% (24-48) Monocytes (%) (Auto) 12% (0-9) Eosinophils (%) (Auto) 4% (0-3) Basophils (%) (Auto) 0% (0-3) Neutrophils # (Auto) 5.6x10^3uL (1.8-7.7) Lymphocytes # (Auto) 1.1x10^3/uL (1.0-4.8) Monocytes # (Auto) 1.0x10^3/uL (0.0-1.1) Eosinophils # (Auto) 0.3x10^3/uL (0.0-0.7) Basophils # (Auto) 0.0x10^3/uL (0.0-0.2) Sodium Level 140mmol/L (136-145) Potassium Level 3.4mmol/L (3.5-5.1) Chloride Level 99mmol/L (98-107) Carbon Dioxide Level 37mmol/L (21-32) Anion Gap 4 (6-14) Blood Urea Nitrogen 24mg/dL (8-26) Creatinine 1.3mg/dL (0.7-1.3) Estimated GFR (Cockcroft-Gault) 55.2 BUN/Creatinine Ratio 18 (6-20) Glucose Level 104mg/dL (70-99) Calcium Level 8.3mg/dL (8.5-10.1) Total Bilirubin 1.0mg/dL (0.2-1.0) Aspartate Amino Transf (AST/SGOT) 52U/L (15-37) Alanine Aminotransferase (ALT/SGPT) 55U/L (16-63) Alkaline Phosphatase 71U/L (46-116) Total Protein 6.4g/dL (6.4-8.2) Albumin 3.1g/dL (3.4-5.0) Albumin/Globulin Ratio 0.9 (1.0-1.7) Test 12/17/16 11:51 12/17/16 13:17 12/17/16 16:40 Glucose (Fingerstick) 118mg/dL (70-99) 193mg/dL (70-99) 224mg/dL (70-99) Microbiology 12/14/16 Blood Culture - Preliminary, Resulted NO GROWTH AFTER 3 DAYS Medications Current Medications Nitroglycerin/ Dextrose (Nitroglycerin Drip) 250 ml @ 0 mls/hr CONT PRN IV SEE I/O RECORD Last administered on 12/14/16 05:15; Start 12/14/16 at 05:15 Albuterol/ Ipratropium (Duoneb) 6 ml 1X ONCE NEB Last administered on 05:17; Start 12/14/16 at 05:30; Stop 12/14/16 at 05:31; Status DC Furosemide (Lasix) 60 mg 1X ONCE IVP Last administered on 12/14/16 06:21; Start 12/14/16 at 06:30; Stop 12/14/16 at 06:31; Status DC Ondansetron HCl 4 mg 4 mg PRN Q8HRS PRN IV NAUSEA/VOMITING; Start 12/14/16 at 06:15; Stop 12/15/16 at 06:14; Status DC Sodium Chloride (Iv Sodium Chloride 0.9% 1000ml Bag) 1,000 ml @ 30 mls/hr Q24H IV Last administered on 12/14/16 06:21; Start 12/14/16 at 06:30; Stop at 06:29; Status DC Acetaminophen (Tylenol) 650 mg PRN Q4HRS PRN PO FEVER Last administered on 12/14 20:35; Start 12/14/16 at 06:15; Stop 12/15/16 at 06:14; Status DC Albuterol/ Ipratropium (Duoneb) 3 ml RTQID NEB Last administered on 12/15/16 07:39; Start 12/14/16 at 08:00; Stop 12/15/16 at 07:59; Status DC Fluticasone Propionate (Flonase) 2 spray DAILY NS Last administered on 09:53; Start 12/15/16 at 09:00 Non-Formulary Medication 4 gm DAILY IH ; Start 12/15/16 at 09:00; Status UNV Insulin Aspart (Novolog) 25 units TIDAC SQ ; Start 12/14/16 at 11:30; Stop 12/14 at 11:55; Status DC Losartan Potassium (Cozaar) 25 mg DAILY PO ; Start 12/15/16 at 09:00; Stop 12/15 at 09:00; Status DC Albuterol Sulfate (Ventolin Neb Soln) 2.5 mg PRN Q4HRS PRN NEB SHORTNESS OF BREATH; Start 12/14/16 at 09:15 Insulin Detemir (Levemir) 70 units QHS SQ Last administered on 12/16/16 21:26 ; Start 12/14/16 at 21:00 Losartan Potassium (Cozaar) 25 mg DAILY PO Last administered on 12/14/16 10:04 ; Start 12/14/16 at 09:15; Stop 12/15/16 at 07:42; Status DC Furosemide (Lasix) 20 mg DAILY PO Last administered on 12/17/16 11:52; Start 12/14/16 at 09:15 Insulin Aspart (Novolog) 0-7 UNITS TIDWMEALS SQ Last administered on 12/15/16 13:14; Start 12/14/16 at 12:00 Dextrose (Dextrose 50%-Water Syringe) 12.5 gm PRN Q15MIN PRN IV SEE COMMENTS; Start 12/14/16 at 09:15 Insulin Aspart (Novolog) 15 units TIDAC SQ Last administered on 12/15/16 13:13 ; Start 12/14/16 at 12:00; Stop 12/15/16 at 14:29; Status DC Furosemide (Lasix) 80 mg Q12HR PO Last administered on 12/15/16 21:13; Start 12/14/16 at 21:00; Stop 12/16/16 at 00:00; Status DC Furosemide (Lasix) 40 mg 1X ONCE PO Last administered on 12/14/16 13:13; Start 12/14/16 at 12:45; Stop 12/14/16 at 12:50; Status DC Furosemide (Lasix) 20 mg 1X ONCE PO ; Start 12/14/16 at 12:45; Stop 12/14/16 at 12:46; Status Cancel Enoxaparin Sodium (Lovenox 80mg Syringe) 80 mg Q12H SQ Last administered on 17:59; Start 12/14/16 at 17:00 Cyclobenzaprine HCl (Flexeril) 5 mg PRN Q6HRS PRN PO MUSCLE SPASMS; Start 12/15 at 07:45 Losartan Potassium (Cozaar) 50 mg DAILY PO Last administered on 12/17/16 11:52 ; Start 12/15/16 at 09:00 Albuterol/ Ipratropium (Duoneb) 3 ml RTQID NEB Last administered on 12/17/16 16:15; Start 12/15/16 at 12:00 Insulin Aspart (Novolog) 30 units TIDAC SQ Last administered on 12/17/16 18:03 ; Start 12/15/16 at 16:30 Acetylcysteine (Mucomyst 20% Oral Solution) 600 mg Q8H PO Last administered on 12/16/16 06:50; Start 12/15/16 at 22:00; Stop 12/16/16 at 06:01; Status DC Non-Formulary Medication 1 ea BID INH Last administered on 12/17/16 11:51; Start 12/15/16 at 21:00 Acetaminophen 650 mg 650 mg PRN Q6HRS PRN PO HEADACHE Last administered on 12/15 19:50; Start 12/15/16 at 19:45 Heparin Sodium/ Sodium Chloride 1,000 ml @ As Directed STK-MED ONCE .ROUTE ; Start 12/16/16 at 08:52; Stop 12/16/16 at 08:53; Status DC Lidocaine HCl 20 ml STK-MED ONCE .ROUTE ; Start 12/16/16 at 08:52; Stop at 08:53; Status DC Iodixanol (Visipaque 320) 100 ml STK-MED ONCE .ROUTE ; Start 12/16/16 at 08:52; Stop 12/16/16 at 08:53; Status DC Fentanyl Citrate (Fentanyl 5ml Vial) 250 mcg STK-MED ONCE .ROUTE ; Start at 11:18; Stop 12/16/16 at 11:19; Status DC Midazolam HCl (Versed) 5 mg STK-MED ONCE .ROUTE ; Start 12/16/16 at 11:18; Stop 12/16/16 at 11:19; Status DC Heparin Sodium/ Sodium Chloride 1,000 unit 1X ONCE IART Last administered on 12:16; Start 12/16/16 at 11:30; Stop 12/16/16 at 11:31; Status DC Midazolam HCl (Versed) 5 mg 1X ONCE IV Last administered on 12/16/16 12:17; Start 12/16/16 at 11:30; Stop 12/16/16 at 11:31; Status DC Fentanyl Citrate (Fentanyl 5ml Vial) 250 mcg 1X ONCE IV Last administered on 12:17; Start 12/16/16 at 11:30; Stop 12/16/16 at 11:31; Status DC Iodixanol (Visipaque 320) 100 ml 1X ONCE IART Last administered on 12/16/16 12:16; Start 12/16/16 at 11:30; Stop 12/16/16 at 11:31; Status DC Lidocaine HCl 20 ml 1X ONCE IJ Last administered on 12/16/16 12:16; Start at 11:30; Stop 12/16/16 at 11:31; Status DC Potassium Chloride (Klor-Con) 40 meq 1X ONCE PO Last administered on 11:52; Start 12/17/16 at 08:30; Stop 12/17/16 at 08:31; Status DC Neomycin/ Polymyxin/ Bacitracin (Triple Antibiotic Ointment) 1 pkt BID TP Last administered on 12/17/16 11:53; Start 12/17/16 at 09:00 Nitroglycerin (Nitrostat) 0.4 mg STK-MED ONCE SL ; Start 12/17/16 at 13:09; Stop 12/17/16 at 13:10; Status DC Nitroglycerin (Nitrostat) 0.4 mg PRN Q5MIN PRN SL CHEST PAIN Last administered on 4/20/17at 14:57; Start 12/17/16 at 13:15 Diltiazem HCl 10 mg 10 mg 1X ONCE IVP ; Start 12/17/16 at 13:45; Stop 12/17/16 at 13:46; Status DC Diltiazem HCl/ Dextrose (Cardizem) 125 ml @ 0 mls/hr CONT PRN IV SEE I/O RECORD ; Start 12/17/16 at 13:30 Active Scripts Active Reported Stiolto Respimat Inhal Switchback (Tiotropium Br/Olodaterol HCl) 4 Gm Mist.inhal 4 Gm IH DAILY Novolog Flexpen (Insulin Aspart) 100 Unit/1 Ml Insuln.pen 1 Unit SQ Ventolin Hfa Inhaler (Albuterol Sulfate) 18 Gm Hfa.aer.ad 2 Puff INH QID Flovent 110MCG Hfa (Fluticasone Propionate) 12 Gm Aer.w.adap 2 Puff IH BID Losartan Potassium 25 Mg Tablet 100 Mg PO DAILY Levemir (Insulin Detemir) 100 Unit/1 Ml Vial 70 Unit SQ QHS Vitals/I & O Vital Sign - Last 24 Hours 12/16/16 12/16/16 12/16/16 12/17/16 20:00 20:09 22:07 03:49 Temp 98.2 98.6 98.2 98.6 Pulse 88 71 Resp 18 16 B/P 117/58 127/65 Pulse Ox 96 96 99 O2 Delivery Nasal Cannula Nasal Cannula Nasal Cannula Nasal Cannula O2 Flow Rate 3.0 3.0 3.0 3.0 12/17/16 12/17/16 12/17/16 12/17/16 07:00 08:10 08:24 11:16 Temp 98.0 97.8 98.0 97.8 Pulse 71 79 Resp 24 24 B/P 113/46 133/68 Pulse Ox 100 98 98 O2 Delivery Nasal Cannula Nasal Cannula Nasal Cannula Nasal Cannula O2 Flow Rate 3.0 3.0 12/17/16 12/17/16 12/17/16 12/17/16 11:52 12:13 14:57 15:43 Temp 98.0 98.0 Pulse 79 90 86 Resp 22 B/P 133/68 197/93 120/66 Pulse Ox 96 O2 Delivery Nasal Cannula Nasal Cannula O2 Flow Rate 3.0 12/17/16 16:15 O2 Delivery Nasal Cannula O2 Flow Rate 3.0 Intake and Output 12/16/16 12/16/16 12/17/16 15:00 23:00 07:00 Intake Total 120 ml 1530 ml 300 ml Output Total 1000 ml 925 ml 425 ml Balance -880 ml 605 ml -125 ml ELLE WEBER MD Dec 17, 2016 19:36
[2016-12-17] MEDS: INSULIN DETEMIR 300 UNITS/3 ML INSULN.PEN. SQ SCH (20:38)
[2016-12-17 23:19] VITALS: BP 127/59
[2016-12-18] VITALS (17 sets, daily range): BP systolic 106–174; BP diastolic 44–86
[2016-12-18] MEDS: IPRATRPIUM/ALBUTEROL 0.5/2.5MG 3 ML NEBU. NEB SCH ×4 (06:16→20:06)
--- NOTE | 2016-12-18 07:53 | PDOC ---
SUBJECTIVE Subjective CABG cancelled due to lung mass found. Planning for stent placement in LAD this afternoon. Pt hasn't had a BM for several days. OBJECTIVE Vital Signs Vital Signs Date Time Temp Pulse Resp B/P Pulse Ox O2 Delivery O2 Flow Rate FiO2 12/18/16 06:13 Nasal Cannula 3.0 12/18/16 03:42 98.1 69 18 113/56 99 Nasal Cannula 3.0 98.1 12/17/16 23:19 98.5 71 18 127/59 97 Nasal Cannula 3.0 98.5 12/17/16 20:55 Nasal Cannula 3.0 12/17/16 20:38 Nasal Cannula 3.0 12/17/16 19:35 97.9 93 18 116/62 95 Nasal Cannula 3.0 97.9 12/17/16 16:15 Nasal Cannula 3.0 12/17/16 15:43 98.0 86 22 120/66 96 Nasal Cannula 98.0 12/17/16 14:57 90 197/93 12/17/16 12:13 Nasal Cannula 3.0 12/17/16 11:52 79 133/68 12/17/16 11:16 97.8 79 24 133/68 98 Nasal Cannula 97.8 12/17/16 08:24 98 Nasal Cannula 3.0 12/17/16 08:10 Nasal Cannula 3.0 I & O Intake and Output 12/18/16 07:00 Intake Total 1600 ml Output Total 2250 ml Balance -650 ml Intake Oral 1600 ml Output Urine Total 2250 ml PHYSICAL EXAM Physical Exam General: Alert, Oriented X3, Cooperative, NAD HEENT: Atraumatic, PERRLA, EOMI, Mucous membr. moist/pink Lungs: Clear to auscultation, Normal air movement Heart: RRR, no rubs, no gallops, no murmurs Abdomen: Normal bowel sounds, Other (distended) Extremities: No clubbing, No cyanosis, no erythema/edema LE bilaterally Skin: No rashes, No breakdown, No significant lesion Neuro: Normal tone, Sensation intact, Cranial nerves 3-12 NL Psych/Mental Status: Mental status NL, Mood NL ASSESSMENT/PLAN Assessment/Plan Pt is a 66yo CM admitted for acute on chronic respiratory failure 1)Acute on Chronic Respiratory failure- 2/2 CHF exacerbation, resolved. Pt had been receiving additional doses of Lasix, now back on normal dose of Lasix 20mg. Good net negative I/O's. Cardiology and Pulmonology following 2)CAD- pt's heart catheterization showed significant CAD. Pt was intially going to be scheduled for CABG, but this was cancelled due to lung mass that was found. Pt to get stent placed this afternoon 3)Accelerated HTN- pt was initially on Nitro gtt, improved on increased dose of Losartan 50mg. 4)DM2- well controlled with HbA1C this admission of 7. Pt continued on home insulin of Levemir 70 units QHS, and Novolog decreased to 30 units QAC. Has SSI available. 5)Leukocytosis- resolved. Pt afebrile and without symptoms of infection. CTM 6)Elevated AST- likely 2/2 hepatic congestion, CTM 7)Acute on CKD- 2/2 diuretic use, resolved 8)Lung mass- pulmonology following. Pt to get outpatient PET scan Problems: COMMENT Lab Laboratory Tests Test 12/17/16 08:07 12/17/16 11:51 12/17/16 13:17 12/17/16 16:40 Glucose (Fingerstick) 121mg/dL (70-99) 118mg/dL (70-99) 193mg/dL (70-99) 224mg/dL (70-99) Test 12/17/16 20:34 Glucose (Fingerstick) 143mg/dL (70-99) JUAN VALENCIA MD Dec 18, 2016 07:53
[2016-12-18] MEDS ORDERED: POLYETHYLENE GLYCOL 3350 17 GM PACKET. PO PRN (08:00)
[2016-12-18] MEDS ORDERED: IV 1/2 NORMAL SALINE 1,000 ML IV SCH (08:00)
[2016-12-18] MEDS: INSULIN ASPART 300 UNITS/3 ML INSULN.PEN SQ SCH ×6 (08:00→17:56)
[2016-12-18] MEDS ORDERED: SENNOSIDES 8.6 MG TABLET PO PRN (08:00)
[2016-12-18] MEDS: NEOMY/BACITR/POLYMYXIN OINT PACKET. TP SCH ×2 (08:32→20:55)
[2016-12-18] MEDS: LOSARTAN POTASSIUM 50 MG TABLET. PO SCH (08:32)
[2016-12-18] MEDS: FUROSEMIDE 20 MG TABLET PO SCH (08:32)
[2016-12-18] MEDS: FLOVENT 100 MCG INH SCH ×2 (08:33→20:54)
[2016-12-18] MEDS: FLUTICASONE 50MCG/NASAL SPRAY 16GM BOTTLE. NS SCH (09:00)
--- NOTE | 2016-12-18 10:02 | PDOC ---
PULMONARY PROGRESS NOTES Subjective feels better Vitals Vital Signs Date Time Temp Pulse Resp B/P Pulse Ox O2 Delivery O2 Flow Rate FiO2 12/18/16 08:32 57 106/57 12/18/16 08:00 Nasal Cannula 3.0 12/18/16 07:30 97.9 18 98 97.9 General: Alert, No acute distress Lungs: Clear Cardiovascular: S1 Abdomen: Soft, Other (obese) Neuro Exam: Alert Extremities: Other (trace edema) Skin: Warm Labs Laboratory Tests Test 12/16/16 12:37 12/16/16 17:13 12/16/16 20:22 12/16/16 22:55 Glucose (Fingerstick) 83mg/dL (70-99) 157mg/dL (70-99) 91mg/dL (70-99) Prothrombin Time 14.0SEC (11.7-14.0) Prothromb Time International Ratio 1.2 (0.8-1.1) Activated Partial Thromboplast Time 37SEC (24-38) Test 12/17/16 04:05 12/17/16 08:07 12/17/16 11:51 12/17/16 13:17 White Blood Count 8.0x10^3/uL (4.0-11.0) Red Blood Count 4.92x10^6/uL (4.30-5.70) Hemoglobin 12.9g/dL (13.0-17.5) Hematocrit 40.3% (39.0-53.0) Mean Corpuscular Volume 82fL (79-100) Mean Corpuscular Hemoglobin 26pg (25-35) Mean Corpuscular Hemoglobin Concent 32g/dL (31-37) Red Cell Distribution Width 15.1% (11.5-14.5) Platelet Count 193x10^3/uL (140-400) Neutrophils (%) (Auto) 70% (31-73) Lymphocytes (%) (Auto) 14% (24-48) Monocytes (%) (Auto) 12% (0-9) Eosinophils (%) (Auto) 4% (0-3) Basophils (%) (Auto) 0% (0-3) Neutrophils # (Auto) 5.6x10^3uL (1.8-7.7) Lymphocytes # (Auto) 1.1x10^3/uL (1.0-4.8) Monocytes # (Auto) 1.0x10^3/uL (0.0-1.1) Eosinophils # (Auto) 0.3x10^3/uL (0.0-0.7) Basophils # (Auto) 0.0x10^3/uL (0.0-0.2) Sodium Level 140mmol/L (136-145) Potassium Level 3.4mmol/L (3.5-5.1) Chloride Level 99mmol/L (98-107) Carbon Dioxide Level 37mmol/L (21-32) Anion Gap 4 (6-14) Blood Urea Nitrogen 24mg/dL (8-26) Creatinine 1.3mg/dL (0.7-1.3) Estimated GFR (Cockcroft-Gault) 55.2 BUN/Creatinine Ratio 18 (6-20) Glucose Level 104mg/dL (70-99) Calcium Level 8.3mg/dL (8.5-10.1) Total Bilirubin 1.0mg/dL (0.2-1.0) Aspartate Amino Transf (AST/SGOT) 52U/L (15-37) Alanine Aminotransferase (ALT/SGPT) 55U/L (16-63) Alkaline Phosphatase 71U/L (46-116) Total Protein 6.4g/dL (6.4-8.2) Albumin 3.1g/dL (3.4-5.0) Albumin/Globulin Ratio 0.9 (1.0-1.7) Glucose (Fingerstick) 121mg/dL (70-99) 118mg/dL (70-99) 193mg/dL (70-99) Test 12/17/16 16:40 12/17/16 20:34 Glucose (Fingerstick) 224mg/dL (70-99) 143mg/dL (70-99) Laboratory Tests Test 12/17/16 11:51 12/17/16 13:17 12/17/16 16:40 12/17/16 20:34 Glucose (Fingerstick) 118mg/dL (70-99) 193mg/dL (70-99) 224mg/dL (70-99) 143mg/dL (70-99) Medications Active Scripts Medications Dose Route/Sig Days Date Category Stiolto Respimat Inhal [place] (Tiotropium Br/Olodaterol HCl) 4 Gm Mist.inhal 4 Gm IH DAILY 11/10/16 Reported Novolog Flexpen (Insulin Aspart) 100 Unit/1 Ml Insuln.pen 1 Unit SQ 11/10/16 Reported Ventolin Hfa Inhaler (Albuterol Sulfate) 18 Gm Hfa.aer.ad 2 Puff INH QID 11/10/16 Reported Flovent 110MCG Hfa (Fluticasone Propionate) 12 Gm Aer.w.adap 2 Puff IH BID 11/10/16 Reported Losartan Potassium 25 Mg Tablet 100 Mg PO DAILY 11/10/16 Reported Levemir (Insulin Detemir) 100 Unit/1 Ml Vial 70 Unit SQ QHS 11/10/16 Reported Impression . 1. Jsttj-ro-mjnvibg hypoxemic respiratory failure secondary to ivmgp-dv-cubtgkb systolic heart failure. 2. Dnpyd-jp-tpnxjdr systolic heart failure. 3. hypertension. 4. Elevated troponin. 5. Type 2 diabetes. 6. Leukocytosis, suspect reactive. 7. Elevated liver chemistries suspect hepatic congestion. resolved 8. COPD,moderate FEV1 1.3(41%) Predicted 9. Multivessel CAD 10. 2.2 cm mass with eccentric calcification, ? malignancy vs hemartoma Plan . 1. s/p cath . MV CAD, not the best optimum candidate for surgery . d/w Dr Ogden 2. CT Chest with 2.2 cm left lung mass with eccentric calcification, could be Hamartoma, cannot exclude Neoplasm. would benefit from OP PET, since CABG is cancelled , Cardiology to consider PCI. would recommend stabilizing cardiac status first before persuing with any invasive biopsy such as Bronch or ct guided lung biopsy. would recommend OP PET first. If Hypermetabolic mass,then have to wait 3-4 weeks before invasive biopsy and stabilization of cardiac status (may need at least 4-6 week an anti-platelet therapy ) 3. Continue oxygen supplementation. 4. No need for antibiotics or steroids. 5. d/w Dr Price and Dr Ogden 6. Pt on home oxygen at 4 litres. GINGER KUMARI MD Dec 18, 2016 10:02
[2016-12-18] MEDS ORDERED: LIDOCAINE 2% 20 ML VIAL. ONE (10:09)
[2016-12-18] MEDS ORDERED: HEPARIN for IV BOLUS 10,000 UNIT/10 ML VIAL. ONE ×2 (10:09→10:50)
[2016-12-18] MEDS ORDERED: IODIXANOL 320 MG/ML 100 ML VIAL. ONE (10:09)
[2016-12-18] MEDS ORDERED: MIDAZOLAM HCL/PF 5 MG/5 ML VIAL. ONE (10:51)
[2016-12-18] MEDS ORDERED: FENTANYL PF 250 MCG/5 ML VIAL. ONE (10:51)
[2016-12-18] MEDS ORDERED: MIDAZOLAM HCL/PF 5 MG/5 ML VIAL. IV ONE (11:00)
[2016-12-18] MEDS ORDERED: LIDOCAINE 2% 20 ML VIAL. IJ ONE (11:00)
[2016-12-18] MEDS ORDERED: FENTANYL PF 250 MCG/5 ML VIAL. IV ONE (11:00)
[2016-12-18] MEDS ORDERED: IODIXANOL 320 MG/ML 100 ML VIAL. IART ONE (11:00)
[2016-12-18] MEDS ORDERED: HEPARIN for IV BOLUS 10,000 UNIT/10 ML VIAL. IV ONE (11:15)
[2016-12-18] MEDS ORDERED: TIROFIBAN 5MG -0.9% NS 100 ML IV ONE ×2 (11:38→11:45)
[2016-12-18] MEDS ORDERED: CLOPIDOGREL BISULFATE 75 MG TABLET PO ONE (11:45)
[2016-12-18] MEDS ORDERED: NITROGLYCERIN 200 MCG/2 ML SYRINGE FOR CATH/VASC LAB. IART ONE (12:15)
[2016-12-18] MEDS ORDERED: FENTANYL PF 100 MCG/2 ML VIAL. ONE (14:48)
[2016-12-18] MEDS ORDERED: FENTANYL PF 100 MCG/2 ML VIAL. IV ONE (15:15)
[2016-12-18] MEDS ORDERED: DIAZEPAM 5 MG TABLET PO PRN (15:15)
[2016-12-18] MEDS ORDERED: POTASSIUM CHLORIDE 20 MEQ TABLET.ER. PO ONE (15:15)
[2016-12-18] MEDS ORDERED: MIDAZOLAM HCL/PF 2 MG/2 ML VIAL. IV ONE (15:15)
--- NOTE | 2016-12-18 15:55 | PDOC4 ---
PROCEDURE Procedure PROCEDURE Chin in the ICU post PTCA stent to the LAD with intra-aortic balloon pump support. The IABP was DC'd and pressure was held for 25 minutes after which appeared to be no active bleeding. Dressing was applied to the groin. Patient tolerated this very well and is hemodynamically stable and free of angina at this time. ELLE WEBER MD Dec 18, 2016 15:55
[2016-12-18] MEDS ORDERED: CLOPIDOGREL BISULFATE 75 MG TABLET PO SCH (16:00)
[2016-12-18] MEDS ORDERED: ASPIRIN 325 MG TABLET PO SCH (16:00)
--- NOTE | 2016-12-18 16:14 | CARD ---
APPROVED REPORT Procedure(s) performed: PTCA with Stenting IABP Placement PROCEDURE NARRATIVE After obtaining informed consent the patient was brought to the Quality Assurance Assessor. Both groins were prepped and draped in the usual fashion. The left groin area was infiltrated with Xylocaine to obtain topical anesthesia and then using Seldin elizabeth technique a intra-aortic balloon pump sheath was inserted. After this was done and over the guide wire an intra-aortic balloon pump catheter was advanced and once I was satisfied with its positioning it was secured in place. We connected the catheter to the intra-aortic balloon pump consult and we obtain a good augmentation of the pressure. I then went to the right groin and after the area was infiltrated with Xylocaine to obtain topical an esthesia a sheath was inserted into the femoral artery. The patient was then fully heparinized. A guiding catheter was then utilized to engage the left coronary os and views of the left coronary ar nicolle were then done. Findings: Coronaries the left main has about a 40% ostial plaquing. The LAD is 99% in the proximal segment the first diagonal which had been diffusely disease in the previous heart catheterization was now occlude d. The circumflex and the marginals are unchanged. After this was evaluated I decided to proceed with stenting of the LAD. A guidewire was then advanced into the LAD and all the way to the distal portion of the LAD we attemp pasha to bring in 3.0 mm bare metal stent with its balloon but it would not cross therefore we removed it and a 2.5 mm balloon was advanced over the guidewire and the area of stenosis was predilated. Following that that balloon was removed and then a 3.0 mm x 18 mm bare-metal stent was advanced over the guidewire and once I was satisfied with its position the stent was deployed high-pressure inflati ons were then done. The balloon was then removed and then a view was then done and we then saw that the previously dilate d areas appear to be well opened but there was still some disease just distal to the stent therefore a second stent this time a 2.75 mm x 15 mm bare metal stent was advanced over the guidewire and once I was satisfied with its position it was deployed in place. Multiple high-pressure inflations were then done in the whole area. Views were then done and we saw that the previously dilated areas appear to be well opened there was excellent flow through there the stents appear to be in good position and no dissection was identifie d. The patient was now free of chest pains. He had been fully heparinized and also had received a bolus of Plavix. The sheaths and the intra-aortic balloon pump were then sutured in place dressings were applied to kathleen th groins and the patient was transferred to the intensive care unit for further care in satisfactory condition after tolerating the procedure rather well. Conclusion The patient tolerated the stenting of the LAD well. After a couple of hours I will be pulling the intra-aortic balloon pump if the patient is stable. This were bare metal stents deployed in the LAD. We will leave it up to the residential sales rep to decide as to when they want to do further pulmonary iglesia p as far as the mass that is in the lungs.
[2016-12-18] MEDS: INSULIN DETEMIR 300 UNITS/3 ML INSULN.PEN. SQ SCH (20:54)
[2016-12-19] VITALS (12 sets, daily range): BP systolic 114–151; BP diastolic 51–76
[2016-12-19] MEDS: IPRATRPIUM/ALBUTEROL 0.5/2.5MG 3 ML NEBU. NEB SCH ×4 (07:30→20:59)
[2016-12-19] MEDS: INSULIN ASPART 300 UNITS/3 ML INSULN.PEN SQ SCH ×6 (08:00→18:03)
[2016-12-19] MEDS: ASPIRIN 325 MG TABLET PO SCH (08:13)
[2016-12-19] MEDS: CLOPIDOGREL BISULFATE 75 MG TABLET PO SCH (08:14)
[2016-12-19] MEDS: LOSARTAN POTASSIUM 50 MG TABLET. PO SCH (08:14)
[2016-12-19] MEDS: FUROSEMIDE 20 MG TABLET PO SCH (08:14)
[2016-12-19] MEDS: FLUTICASONE 50MCG/NASAL SPRAY 16GM BOTTLE. NS SCH (08:15)
[2016-12-19] MEDS: NEOMY/BACITR/POLYMYXIN OINT PACKET. TP SCH ×2 (08:15→20:42)
[2016-12-19] MEDS: FLOVENT 100 MCG INH SCH ×2 (08:15→20:42)
--- NOTE | 2016-12-19 09:55 | PDOC ---
PULMONARY PROGRESS NOTES Subjective feels better s/p LAD stent Vitals Vital Signs Date Time Temp Pulse Resp B/P Pulse Ox O2 Delivery O2 Flow Rate FiO2 12/19/16 08:14 76 151/63 12/19/16 07:00 20 97 Nasal Cannula 3.0 12/19/16 03:55 99.0 99.0 General: Alert, No acute distress Lungs: Clear Cardiovascular: S1 Abdomen: Soft, Other (obese) Neuro Exam: Alert Extremities: Other (trace edema) Skin: Warm Labs Laboratory Tests Test 12/17/16 11:51 12/17/16 13:17 12/17/16 16:40 12/17/16 20:34 Glucose (Fingerstick) 118mg/dL (70-99) 193mg/dL (70-99) 224mg/dL (70-99) 143mg/dL (70-99) Test 12/18/16 07:58 12/18/16 13:34 12/18/16 14:30 12/18/16 17:53 Glucose (Fingerstick) 174mg/dL (70-99) 120mg/dL (70-99) 168mg/dL (70-99) Activated Clotting Time SEC (90-125) Test 12/18/16 20:17 12/19/16 08:12 Glucose (Fingerstick) 164mg/dL (70-99) 138mg/dL (70-99) Laboratory Tests Test 12/18/16 13:34 12/18/16 14:30 12/18/16 17:53 12/18/16 20:17 Glucose (Fingerstick) 120mg/dL (70-99) 168mg/dL (70-99) 164mg/dL (70-99) Activated Clotting Time SEC (90-125) Test 12/19/16 08:12 Glucose (Fingerstick) 138mg/dL (70-99) Medications Active Scripts Medications Dose Route/Sig Days Date Category Stiolto Respimat Inhal [place] (Tiotropium Br/Olodaterol HCl) 4 Gm Mist.inhal 4 Gm IH DAILY 11/10/16 Reported Novolog Flexpen (Insulin Aspart) 100 Unit/1 Ml Insuln.pen 1 Unit SQ 11/10/16 Reported Ventolin Hfa Inhaler (Albuterol Sulfate) 18 Gm Hfa.aer.ad 2 Puff INH QID 11/10/16 Reported Flovent 110MCG Hfa (Fluticasone Propionate) 12 Gm Aer.w.adap 2 Puff IH BID 11/10/16 Reported Losartan Potassium 25 Mg Tablet 100 Mg PO DAILY 11/10/16 Reported Levemir (Insulin Detemir) 100 Unit/1 Ml Vial 70 Unit SQ QHS 11/10/16 Reported Impression . 1. Tuqbo-so-huivhur hypoxemic respiratory failure secondary to nwhhq-vf-rozmzov systolic heart failure. 2. CAD, s/p cath, MV CAD, s/p stent LAD 3. hypertension. 4. Elevated troponin./NSTMI 5. Type 2 diabetes. 6. Leukocytosis, suspect reactive. 7. Elevated liver chemistries suspect hepatic congestion. resolved 8. COPD,moderate FEV1 1.3(41%) Predicted 9. Multivessel CAD 10. 2.2 cm mass with eccentric calcification, ? malignancy vs hemartoma Plan . 1. s/p cath .Stent LAD. MV CAD, not the best optimum candidate for surgery . d/ w Dr Ogden 2. CT Chest with 2.2 cm left lung mass with eccentric calcification, could be Hamartoma, cannot exclude Neoplasm. would benefit from OP PET, since CABG is cancelled , Cardiology to consider PCI. would recommend stabilizing cardiac status first before persuing with any invasive biopsy such as Bronch or ct guided lung biopsy. would recommend OP PET first. If Hypermetabolic mass,then have to wait 3-4 weeks before invasive biopsy and stabilization of cardiac status (may need at least 4-6 week on anti-platelet therapy ) 3. Continue oxygen supplementation. 4. No need for antibiotics or steroids. 5. d/w Dr Price and Dr Ogden 6. Pt on home oxygen at 4 litres. GINGER KUMARI MD Dec 19, 2016 09:55
--- NOTE | 2016-12-19 10:12 | PDOC ---
PROGRESS NOTES Subjective Subjective Patient denies any CP or SOA, feels good. Objective Objective Vital Signs Date Time Temp Pulse Resp B/P Pulse Ox O2 Delivery O2 Flow Rate FiO2 12/19/16 08:14 76 151/63 12/19/16 07:00 20 97 Nasal Cannula 3.0 12/19/16 03:55 99.0 99.0 Intake and Output 12/19/16 06:59 Intake Total 2869 ml Output Total 1975 ml Balance 894 ml Intake Oral 2090 ml IV Total 779 ml Output Urine Total 1975 ml Physical Exam Abdomen: Normal bowel sounds, Soft, No tenderness Heart: Regular rate (frequent prematurities) Extremities: No edema General: Alert, Oriented X3, No acute distress Lungs: Other (BS decreased throughout but otherwise CTA) Assessment Assessment Problems Medical Problems: (1) Acute on chronic diastolic CHF (congestive heart failure) Status: Acute (2) Acute on chronic respiratory failure Status: Acute (3) Cardiac ischemia Status: Acute (4) COPD exacerbation Status: Acute Plan Plan of Care 1. CAD, s/p angioplasty and stent placement x2 yesterday - stable, free of chest pain. Continue ASA and Plavix. In sinus rhythm on telemetry but frequent PAC's and rate somewhat irregular. Continue to monitor, Dr Price following. 2. acute on chronic respiratory failure with COPD - improved from admission, continue O2, which patient is on at home already. 3. systolic CHF - improved. 4. DM2 - well controlled with insulins. 5. HTN - well controlled, continue present meds. 6. lung mass - Dr Archuleta recommends PET scan as outpatient. Comment Review of Relevant I have reviewed the following items thomas (where applicable) has been applied. Labs Laboratory Tests Test 12/17/16 11:51 12/17/16 13:17 12/17/16 16:40 12/17/16 20:34 Glucose (Fingerstick) 118mg/dL (70-99) 193mg/dL (70-99) 224mg/dL (70-99) 143mg/dL (70-99) Test 12/18/16 07:58 12/18/16 13:34 12/18/16 14:30 12/18/16 17:53 Glucose (Fingerstick) 174mg/dL (70-99) 120mg/dL (70-99) 168mg/dL (70-99) Activated Clotting Time SEC (90-125) Test 12/18/16 20:17 12/19/16 08:12 Glucose (Fingerstick) 164mg/dL (70-99) 138mg/dL (70-99) Laboratory Tests Test 12/18/16 13:34 12/18/16 14:30 12/18/16 17:53 12/18/16 20:17 Glucose (Fingerstick) 120mg/dL (70-99) 168mg/dL (70-99) 164mg/dL (70-99) Activated Clotting Time SEC (90-125) Test 12/19/16 08:12 Glucose (Fingerstick) 138mg/dL (70-99) Microbiology 12/14/16 Blood Culture - Final, Complete NO GROWTH AFTER 5 DAYS Medications Current Medications Nitroglycerin/ Dextrose (Nitroglycerin Drip) 250 ml @ 0 mls/hr CONT PRN IV SEE I/O RECORD Last administered on 12/14/16 05:15; Start 12/14/16 at 05:15 Albuterol/ Ipratropium (Duoneb) 6 ml 1X ONCE NEB Last administered on 05:17; Start 12/14/16 at 05:30; Stop 12/14/16 at 05:31; Status DC Furosemide (Lasix) 60 mg 1X ONCE IVP Last administered on 12/14/16 06:21; Start 12/14/16 at 06:30; Stop 12/14/16 at 06:31; Status DC Ondansetron HCl 4 mg 4 mg PRN Q8HRS PRN IV NAUSEA/VOMITING; Start 12/14/16 at 06:15; Stop 12/15/16 at 06:14; Status DC Sodium Chloride (Iv Sodium Chloride 0.9% 1000ml Bag) 1,000 ml @ 30 mls/hr Q24H IV Last administered on 12/14/16 06:21; Start 12/14/16 at 06:30; Stop at 06:29; Status DC Acetaminophen (Tylenol) 650 mg PRN Q4HRS PRN PO FEVER Last administered on 12/14 20:35; Start 12/14/16 at 06:15; Stop 12/15/16 at 06:14; Status DC Albuterol/ Ipratropium (Duoneb) 3 ml RTQID NEB Last administered on 12/15/16 07:39; Start 12/14/16 at 08:00; Stop 12/15/16 at 07:59; Status DC Fluticasone Propionate (Flonase) 2 spray DAILY NS Last administered on 09:53; Start 12/15/16 at 09:00 Non-Formulary Medication 4 gm DAILY IH ; Start 12/15/16 at 09:00; Status UNV Insulin Aspart (Novolog) 25 units TIDAC SQ ; Start 12/14/16 at 11:30; Stop 12/14 at 11:55; Status DC Losartan Potassium (Cozaar) 25 mg DAILY PO ; Start 12/15/16 at 09:00; Stop 12/15 at 09:00; Status DC Albuterol Sulfate (Ventolin Neb Soln) 2.5 mg PRN Q4HRS PRN NEB SHORTNESS OF BREATH; Start 12/14/16 at 09:15 Insulin Detemir (Levemir) 70 units QHS SQ Last administered on 12/18/16 20:54 ; Start 12/14/16 at 21:00 Losartan Potassium (Cozaar) 25 mg DAILY PO Last administered on 12/14/16 10:04 ; Start 12/14/16 at 09:15; Stop 12/15/16 at 07:42; Status DC Furosemide (Lasix) 20 mg DAILY PO Last administered on 12/19/16 08:14; Start 12/14/16 at 09:15 Insulin Aspart (Novolog) 0-7 UNITS TIDWMEALS SQ Last administered on 12/15/16 13:14; Start 12/14/16 at 12:00 Dextrose (Dextrose 50%-Water Syringe) 12.5 gm PRN Q15MIN PRN IV SEE COMMENTS; Start 12/14/16 at 09:15 Insulin Aspart (Novolog) 15 units TIDAC SQ Last administered on 12/15/16 13:13 ; Start 12/14/16 at 12:00; Stop 12/15/16 at 14:29; Status DC Furosemide (Lasix) 80 mg Q12HR PO Last administered on 12/15/16 21:13; Start 12/14/16 at 21:00; Stop 12/16/16 at 00:00; Status DC Furosemide (Lasix) 40 mg 1X ONCE PO Last administered on 12/14/16 13:13; Start 12/14/16 at 12:45; Stop 12/14/16 at 12:50; Status DC Furosemide (Lasix) 20 mg 1X ONCE PO ; Start 12/14/16 at 12:45; Stop 12/14/16 at 12:46; Status Cancel Enoxaparin Sodium (Lovenox 80mg Syringe) 80 mg Q12H SQ Last administered on 04:36; Start 12/14/16 at 17:00 Cyclobenzaprine HCl (Flexeril) 5 mg PRN Q6HRS PRN PO MUSCLE SPASMS; Start 12/15 at 07:45 Losartan Potassium (Cozaar) 50 mg DAILY PO Last administered on 12/19/16 08:14 ; Start 12/15/16 at 09:00 Albuterol/ Ipratropium (Duoneb) 3 ml RTQID NEB Last administered on 12/18/16 20:06; Start 12/15/16 at 12:00 Insulin Aspart (Novolog) 30 units TIDAC SQ Last administered on 12/19/16 08:27 ; Start 12/15/16 at 16:30 Acetylcysteine (Mucomyst 20% Oral Solution) 600 mg Q8H PO Last administered on 12/16/16 06:50; Start 12/15/16 at 22:00; Stop 12/16/16 at 06:01; Status DC Non-Formulary Medication 1 ea BID INH Last administered on 12/19/16 08:15; Start 12/15/16 at 21:00 Acetaminophen 650 mg 650 mg PRN Q6HRS PRN PO HEADACHE Last administered on 12/15 19:50; Start 12/15/16 at 19:45 Heparin Sodium/ Sodium Chloride 1,000 ml @ As Directed STK-MED ONCE .ROUTE ; Start 12/16/16 at 08:52; Stop 12/16/16 at 08:53; Status DC Lidocaine HCl 20 ml STK-MED ONCE .ROUTE ; Start 12/16/16 at 08:52; Stop at 08:53; Status DC Iodixanol (Visipaque 320) 100 ml STK-MED ONCE .ROUTE ; Start 12/16/16 at 08:52; Stop 12/16/16 at 08:53; Status DC Fentanyl Citrate (Fentanyl 5ml Vial) 250 mcg STK-MED ONCE .ROUTE ; Start at 11:18; Stop 12/16/16 at 11:19; Status DC Midazolam HCl (Versed) 5 mg STK-MED ONCE .ROUTE ; Start 12/16/16 at 11:18; Stop 12/16/16 at 11:19; Status DC Heparin Sodium/ Sodium Chloride 1,000 unit 1X ONCE IART Last administered on 12:16; Start 12/16/16 at 11:30; Stop 12/16/16 at 11:31; Status DC Midazolam HCl (Versed) 5 mg 1X ONCE IV Last administered on 12/16/16 12:17; Start 12/16/16 at 11:30; Stop 12/16/16 at 11:31; Status DC Fentanyl Citrate (Fentanyl 5ml Vial) 250 mcg 1X ONCE IV Last administered on 12:17; Start 12/16/16 at 11:30; Stop 12/16/16 at 11:31; Status DC Iodixanol (Visipaque 320) 100 ml 1X ONCE IART Last administered on 12/16/16 12:16; Start 12/16/16 at 11:30; Stop 12/16/16 at 11:31; Status DC Lidocaine HCl 20 ml 1X ONCE IJ Last administered on 12/16/16 12:16; Start at 11:30; Stop 12/16/16 at 11:31; Status DC Potassium Chloride (Klor-Con) 40 meq 1X ONCE PO Last administered on 11:52; Start 12/17/16 at 08:30; Stop 12/17/16 at 08:31; Status DC Neomycin/ Polymyxin/ Bacitracin (Triple Antibiotic Ointment) 1 pkt BID TP Last administered on 12/19/16 08:15; Start 12/17/16 at 09:00 Nitroglycerin (Nitrostat) 0.4 mg STK-MED ONCE SL ; Start 12/17/16 at 13:09; Stop 12/17/16 at 13:10; Status DC Nitroglycerin (Nitrostat) 0.4 mg PRN Q5MIN PRN SL CHEST PAIN Last administered on 12/17/16t 14:57; Start 12/17/16 at 13:15 Diltiazem HCl 10 mg 10 mg 1X ONCE IVP ; Start 12/17/16 at 13:45; Stop 12/17/16 at 13:46; Status DC Diltiazem HCl 125 mg/Dextrose 125 ml @ 0 mls/hr CONT PRN IV SEE I/O RECORD; Start 12/17/16 at 13:30 Sodium Chloride (Iv Sodium Chloride 0.45%) 1,000 ml @ 60 mls/hr [id number] IV Last administered on 12/18/16t 08:34; Start 12/18/16 at 08:00; Stop 12/18/16 at 21:33; Status DC Sennosides (Senna) 17.2 mg PRN BID PRN PO CONSTIPATION, 2ND CHOICE Last administered on 12/18/16t 08:32; Start 12/18/16 at 08:00 Polyethylene Glycol (miraLAX PACKET) 17 gm PRN DAILY PRN PO CONSTIPATION, 1ST CHOICE; Start 12/18/16 at 08:00 Nitroglycerin 0.4 mg 0.4 mg STK-MED ONCE SL ; Start 12/17/16 at 13:00; Stop at 08:33; Status DC Heparin Sodium/ Sodium Chloride 1,000 ml @ As Directed STK-MED ONCE .ROUTE ; Start 12/18/16 at 10:08; Stop 12/18/16 at 10:09; Status DC Lidocaine HCl 20 ml STK-MED ONCE .ROUTE ; Start 12/18/16 at 10:09; Stop at 10:10; Status DC Iodixanol (Visipaque 320) 100 ml STK-MED ONCE .ROUTE ; Start 12/18/16 at 10:09; Stop 12/18/16 at 10:10; Status DC Heparin Sodium (Porcine) (Heparin Sodium) 10,000 unit STK-MED ONCE .ROUTE ; Start 12/18/16 at 10:09; Stop 12/18/16 at 10:10; Status DC Heparin Sodium (Porcine) (Heparin Sodium) 10,000 unit STK-MED ONCE .ROUTE ; Start 12/18/16 at 10:50; Stop 12/18/16 at 10:51; Status DC Fentanyl Citrate (Fentanyl 5ml Vial) 250 mcg STK-MED ONCE .ROUTE ; Start at 10:51; Stop 12/18/16 at 10:52; Status DC Midazolam HCl (Versed) 5 mg STK-MED ONCE .ROUTE ; Start 12/18/16 at 10:51; Stop 12/18/16 at 10:52; Status DC Heparin Sodium/ Sodium Chloride 1,000 unit 1X ONCE IART Last administered on 11:22; Start 12/18/16 at 11:00; Stop 12/18/16 at 11:03; Status DC Midazolam HCl (Versed) 5 mg 1X ONCE IV Last administered on 12/18/16 12:03; Start 12/18/16 at 11:00; Stop 12/18/16 at 11:03; Status DC Fentanyl Citrate (Fentanyl 5ml Vial) 250 mcg 1X ONCE IV Last administered on 12:03; Start 12/18/16 at 11:00; Stop 12/18/16 at 11:03; Status DC Iodixanol (Visipaque 320) 100 ml 1X ONCE IART Last administered on 12/18/16 12:04; Start 12/18/16 at 11:00; Stop 12/18/16 at 11:03; Status DC Lidocaine HCl 20 ml 1X ONCE IJ Last administered on 12/18/16 11:22; Start at 11:00; Stop 12/18/16 at 11:03; Status DC Heparin Sodium (Porcine) 13925 unit 10,000 unit 1X ONCE IV Last administered on 12/18/16 12:08; Start 12/18/16 at 11:15; Stop 12/18/16 at 11:16; Status DC Tirofiban/Sodium Chloride (Aggrastat 5 Mg/ 100 ml Premix) 100 ml @ As Directed STK-MED ONCE IV ; Start 12/18/16 at 11:38; Stop 12/18/16 at 11:39; Status DC Clopidogrel Bisulfate 300 mg 300 mg 1X ONCE PO Last administered on 12/18/16 12:04; Start 12/18/16 at 11:45; Stop 12/18/16 at 11:46; Status DC Tirofiban/Sodium Chloride 100 ml @ 0 mls/hr 1X ONCE IV Last administered on 12:04; Start 12/18/16 at 11:45; Stop 12/18/16 at 11:46; Status DC Heparin Sodium/ Sodium Chloride 500 ml @ As Directed STK-MED ONCE .ROUTE ; Start 12/18/16 at 11:58; Stop 12/18/16 at 11:59; Status DC Nitroglycerin (Nitroglycerin) 200 mcg 1X ONCE IART Last administered on 12:11; Start 12/18/16 at 12:15; Stop 12/18/16 at 12:16; Status DC Fentanyl Citrate (Fentanyl 2ml Vial) 100 mcg STK-MED ONCE .ROUTE ; Start at 14:48; Stop 12/18/16 at 14:49; Status DC Fentanyl Citrate (Fentanyl 2ml Vial) 50 mcg 1X ONCE IV Last administered on 15:15; Start 12/18/16 at 15:15; Stop 12/18/16 at 15:22; Status DC Midazolam HCl (Versed) 1 mg 1X ONCE IV Last administered on 12/18/16 15:15; Start 12/18/16 at 15:15; Stop 12/18/16 at 15:22; Status DC Potassium Chloride (Klor-Con) 40 meq 1X ONCE PO Last administered on 15:28; Start 12/18/16 at 15:15; Stop 12/18/16 at 15:22; Status DC Diazepam (Valium) 5 mg PRN Q4HRS PRN PO ANXIETY Last administered on 12/18/16 15:27; Start 12/18/16 at 15:15 Aspirin (Chelsey Aspirin) 325 mg DAILYWBKFT PO ; Start 12/18/16 at 16:00; Stop at 18:02; Status DC Clopidogrel Bisulfate (Plavix) 75 mg DAILYWBKFT PO ; Start 12/18/16 at 16:00; Stop 12/18/16 at 18:03; Status DC Aspirin (Chelsey Aspirin) 325 mg DAILYWBKFT PO Last administered on 12/19/16 08: 13; Start 12/19/16 at 09:00 Clopidogrel Bisulfate (Plavix) 75 mg DAILYWBKFT PO Last administered on 08:14; Start 12/19/16 at 09:00 Active Scripts Active Reported Stiolto Respimat Inhal [place] (Tiotropium Br/Olodaterol HCl) 4 Gm Mist.inhal 4 Gm IH DAILY Novolog Flexpen (Insulin Aspart) 100 Unit/1 Ml Insuln.pen 1 Unit SQ Ventolin Hfa Inhaler (Albuterol Sulfate) 18 Gm Hfa.aer.ad 2 Puff INH QID Flovent 110MCG Hfa (Fluticasone Propionate) 12 Gm Aer.w.adap 2 Puff IH BID Losartan Potassium 25 Mg Tablet 100 Mg PO DAILY Levemir (Insulin Detemir) 100 Unit/1 Ml Vial 70 Unit SQ QHS Vitals/I & O Vital Sign - Last 24 Hours 12/18/16 12/18/16 12/18/16 12/18/16 11:53 12:03 12:30 12:30 Temp 98.3 98.3 Pulse 49 66 Resp 23 23 18 B/P 139/52 Pulse Ox 98 99 99 O2 Delivery Nasal Cannula Nasal Cannula Nasal Cannula Nasal Cannula O2 Flow Rate 2.0 3.0 3.0 3.0 12/18/16 12/18/16 12/18/16 12/18/16 13:00 13:15 13:45 14:00 Pulse 70 74 74 72 Resp 18 18 18 18 B/P 142/66 149/57 155/58 143/72 Pulse Ox 99 99 99 99 O2 Delivery Nasal Cannula Nasal Cannula Nasal Cannula Nasal Cannula O2 Flow Rate 3.0 3.0 3.0 3.0 12/18/16 12/18/16 12/18/16 12/18/16 15:00 15:15 16:00 16:35 Pulse 76 80 Resp 18 18 B/P 106/76 109/44 Pulse Ox 99 99 99 98 O2 Delivery Nasal Cannula Nasal Cannula Nasal Cannula Nasal Cannula O2 Flow Rate 3.0 3.0 3.0 3.0 12/18/16 12/18/16 12/18/16 12/18/16 17:37 18:02 19:00 20:00 Temp 98.2 98.2 Pulse 81 82 Resp 18 18 B/P 110/48 140/53 Pulse Ox 99 96 O2 Delivery Nasal Cannula Nasal Cannula Nasal Cannula Nasal Cannula O2 Flow Rate 3.0 3.0 3.0 3.0 12/18/16 12/18/16 12/18/1612/18/17 20:00 20:07 21:00 22:00 Temp 99.9 99.9 Pulse 78 76 73 Resp B/P 131/46 135/61 130/48 Pulse Ox 96 95 95 95 O2 Delivery Nasal Cannula Nasal Cannula Nasal Cannula Nasal Cannula O2 Flow Rate 3.0 3.0 3.0 3.0 12/18/16 12/18/16 12/18/16 12/19/16 23:00 23:52 23:52 01:00 Temp 99.6 99.6 Pulse 73 89 74 Resp B/P 127/78 114/74 146/73 Pulse Ox 96 96 96 O2 Delivery Nasal Cannula Nasal Cannula Nasal Cannula Nasal Cannula O2 Flow Rate 3.0 3.0 3.0 3.0 12/19/16 12/19/16 12/19/16 12/19/16 02:00 02:55 03:39 03:55 Temp 99.0 99.0 Pulse 62 68 64 Resp B/P 144/57 114/57 117/63 Pulse Ox 98 97 98 O2 Delivery Nasal Cannula Nasal Cannula Nasal Cannula Nasal Cannula O2 Flow Rate 3.0 3.0 3.0 3.0 12/19/16 12/19/16 12/19/16 12/19/16 05:00 06:00 07:00 08:14 Pulse 61 63 55 76 Resp B/P 148/76 150/72 151/63 151/63 Pulse Ox 98 97 97 O2 Delivery Nasal Cannula Nasal Cannula Nasal Cannula O2 Flow Rate 3.0 3.0 3.0 Intake and Output 12/18/16 12/18/16 12/19/16 14:59 22:59 06:59 Intake Total 410 ml 1259 ml 1200 ml Output Total 300 ml 375 ml 1300 ml Balance 110 ml 884 ml -100 ml STANFORD GARCIA MD Dec 19, 2016 10:12
[2016-12-19 11:42] LABS: HEMATOCRIT 38.6 % (39.0-53.0); HEMOGLOBIN 13.1 g/dL (13.0-17.5); RED BLOOD COUNT 4.82 x10^6/uL (4.30-5.70); RED CELL DISTRIBUTION WIDTH 15.5 % (11.5-14.5); WHITE BLOOD COUNT 7.5 x10^3/uL (4.0-11.0)
[2016-12-19 11:44] LABS: CALCIUM 8.8 mg/dL (8.5-10.1); CREATININE 1.2 mg/dL (0.7-1.3); GFR 60.6; POTASSIUM 4.5 mmol/L (3.5-5.1)
--- NOTE | 2016-12-19 12:21 | RAD ---
APPROVED REPORT Imaging Protocol IMAGE PROTOCOL: Viability only Rest: Stress: Viability: Radiopharm.ThalliumThallium [id number] 1mCi Duration 20min. 25min. Img Date 12/17/2016 12/17/2016 Inj-Img [id number]. 240min. Rest Admin Site:IV - Right AntecubitalAdministrator:JAYLA Gayle, ARRT (R)(N) Viability Admin Site:IV - Right AntecubitalAdministrator: BEBETO Laboy Viability without Stress The patient was injected with 3.2mCi of Thallium 201 in the IV - Right Antecubital by BEBETO Gayle at , 09:16 Date/Time. Initial Imaging was performed by BEBETO Laboy at , 1030 Date/Time. The patient was injected with 1.1mCi of Thallium 201 in the IV - Right Antecubital by BEBETO Laboy at , 1100 Date/Time. Delayed Images were acquired by BEBETO Laboy at , 1400 Date/Time. Motion Correction: No STRESS DATA End Diast. Vol.157.0mlAv. Heart Rate88.0bpm End Syst. Vol.81.0mlCO Index BSA0.0L/min Myocardial Zoea716.0gEject. Zepkwnwx80.0% Stress Scores Regional WT3.00Summed WT20.00 Regional WM1.00Summed WM21.00 LV Perf. Quant 17 Seg. SSS12.00 Stress Defect Extent (% LAD)56.90Rest Defect Extent (% LAD)Rev. Defect Extent (% LAD)22.50 Stress Defect Extent (% LCX) 3.80Rest Defect Extent (% LCX)Rev. Defect Extent (% LCX)0.00 Stress Defect Extent (% RCA)1.10Rest Defect Extent (% RCA)Rev. Defect Extent (% RCA)0.00 Stress Defect Extent (% IAN)29.10Rest Defect Extent (% IAN)Rev. Defect Extent (% IAN)8.50 Conclusion 1. A viability study was requested while considering revascularization in this patient with know n coronary artery disease. 2. 3.2 mCi of thallium was injected and images images were obtained 3. After waiting for 3 hours an additional 1 mCi of thallium was injected. Further images were obt ained thereafter. 4. A scan in 24 hours was not obtained. 5. The images that were obtained shows only about 50% uptake over the anterior wall. 6. However since a 24 hour imaging was not obtained one cannot be sure whether further viability wou ld have been noted. 7. The rest of the myocardium over the septum, lateral wall, inferior wall shows a normal uptake. 8. Incomplete study with partial viability over the anterior wall.
[2016-12-19] MEDS: ANTI-COAG MONITOR BY PHARMACY. MC PRN (13:23)
--- NOTE | 2016-12-19 15:35 | PDOC ---
PROGRESS NOTES Subjective Subjective No chest pains. Feels better today. Objective Objective Vital Signs Date Time Temp Pulse Resp B/P Pulse Ox O2 Delivery O2 Flow Rate FiO2 12/19/16 12:00 98.4 68 20 120/62 98 Nasal Cannula 3.0 98.4 Intake and Output 12/19/16 07:00 Intake Total 2869 ml Output Total 1975 ml Balance 894 ml Intake Oral 2090 ml IV Total 779 ml Output Urine Total 1975 ml Physical Exam Physical Exam No significant changes in cardiac exam. No bleeding from groins. Assessment Assessment Patient stable. May go home in a.m. Minutes to continue with current medications including aspirin and Plavix. I agree with getting a PET scan as an outpatient. Problems Medical Problems: (1) Acute on chronic diastolic CHF (congestive heart failure) Status: Acute (2) Acute on chronic respiratory failure Status: Acute (3) Cardiac ischemia Status: Acute (4) COPD exacerbation Status: Acute Comment Review of Relevant I have reviewed the following items thomas (where applicable) has been applied. Labs Laboratory Tests Test 12/17/16 16:40 12/17/16 20:34 12/18/16 07:58 12/18/16 13:34 Glucose (Fingerstick) 224mg/dL (70-99) 143mg/dL (70-99) 174mg/dL (70-99) 120mg/dL (70-99) Test 12/18/16 14:30 12/18/16 17:53 12/18/16 20:17 12/19/16 08:12 Activated Clotting Time SEC (90-125) Glucose (Fingerstick) 168mg/dL (70-99) 164mg/dL (70-99) 138mg/dL (70-99) Test 12/19/16 11:15 12/19/16 12:50 White Blood Count 7.5x10^3/uL (4.0-11.0) Red Blood Count 4.82x10^6/uL (4.30-5.70) Hemoglobin 13.1g/dL (13.0-17.5) Hematocrit 38.6% (39.0-53.0) Mean Corpuscular Volume 80fL (79-100) Mean Corpuscular Hemoglobin 27pg (25-35) Mean Corpuscular Hemoglobin Concent 34g/dL (31-37) Red Cell Distribution Width 15.5% (11.5-14.5) Platelet Count 198x10^3/uL (140-400) Sodium Level 139mmol/L (136-145) Potassium Level 4.5mmol/L (3.5-5.1) Chloride Level 100mmol/L (98-107) Carbon Dioxide Level 35mmol/L (21-32) Anion Gap 4 (6-14) Blood Urea Nitrogen 21mg/dL (8-26) Creatinine 1.2mg/dL (0.7-1.3) Estimated GFR (Cockcroft-Gault) 60.6 Glucose Level 157mg/dL (70-99) Calcium Level 8.8mg/dL (8.5-10.1) Glucose (Fingerstick) 123mg/dL (70-99) Laboratory Tests Test 12/18/16 17:53 12/18/16 20:17 12/19/16 08:12 12/19/16 11:15 Glucose (Fingerstick) 168mg/dL (70-99) 164mg/dL (70-99) 138mg/dL (70-99) White Blood Count 7.5x10^3/uL (4.0-11.0) Red Blood Count 4.82x10^6/uL (4.30-5.70) Hemoglobin 13.1g/dL (13.0-17.5) Hematocrit 38.6% (39.0-53.0) Mean Corpuscular Volume 80fL (79-100) Mean Corpuscular Hemoglobin 27pg (25-35) Mean Corpuscular Hemoglobin Concent 34g/dL (31-37) Red Cell Distribution Width 15.5% (11.5-14.5) Platelet Count 198x10^3/uL (140-400) Sodium Level 139mmol/L (136-145) Potassium Level 4.5mmol/L (3.5-5.1) Chloride Level 100mmol/L (98-107) Carbon Dioxide Level 35mmol/L (21-32) Anion Gap 4 (6-14) Blood Urea Nitrogen 21mg/dL (8-26) Creatinine 1.2mg/dL (0.7-1.3) Estimated GFR (Cockcroft-Gault) 60.6 Glucose Level 157mg/dL (70-99) Calcium Level 8.8mg/dL (8.5-10.1) Test 12/19/16 12:50 Glucose (Fingerstick) 123mg/dL (70-99) Microbiology 12/14/16 Blood Culture - Final, Complete NO GROWTH AFTER 5 DAYS Medications Current Medications Nitroglycerin/ Dextrose (Nitroglycerin Drip) 250 ml @ 0 mls/hr CONT PRN IV SEE I/O RECORD Last administered on 12/14/16 05:15; Start 12/14/16 at 05:15 Albuterol/ Ipratropium (Duoneb) 6 ml 1X ONCE NEB Last administered on 05:17; Start 12/14/16 at 05:30; Stop 12/14/16 at 05:31; Status DC Furosemide (Lasix) 60 mg 1X ONCE IVP Last administered on 12/14/16 06:21; Start 12/14/16 at 06:30; Stop 12/14/16 at 06:31; Status DC Ondansetron HCl 4 mg 4 mg PRN Q8HRS PRN IV NAUSEA/VOMITING; Start 12/14/16 at 06:15; Stop 12/15/16 at 06:14; Status DC Sodium Chloride (Iv Sodium Chloride 0.9% 1000ml Bag) 1,000 ml @ 30 mls/hr Q24H IV Last administered on 12/14/16 06:21; Start 12/14/16 at 06:30; Stop at 06:29; Status DC Acetaminophen (Tylenol) 650 mg PRN Q4HRS PRN PO FEVER Last administered on 12/14 20:35; Start 12/14/16 at 06:15; Stop 12/15/16 at 06:14; Status DC Albuterol/ Ipratropium (Duoneb) 3 ml RTQID NEB Last administered on 12/15/16 07:39; Start 12/14/16 at 08:00; Stop 12/15/16 at 07:59; Status DC Fluticasone Propionate (Flonase) 2 spray DAILY NS Last administered on 09:53; Start 12/15/16 at 09:00 Non-Formulary Medication 4 gm DAILY IH ; Start 12/15/16 at 09:00; Status UNV Insulin Aspart (Novolog) 25 units TIDAC SQ ; Start 12/14/16 at 11:30; Stop 12/14 at 11:55; Status DC Losartan Potassium (Cozaar) 25 mg DAILY PO ; Start 12/15/16 at 09:00; Stop 12/15 at 09:00; Status DC Albuterol Sulfate (Ventolin Neb Soln) 2.5 mg PRN Q4HRS PRN NEB SHORTNESS OF BREATH; Start 12/14/16 at 09:15 Insulin Detemir (Levemir) 70 units QHS SQ Last administered on 12/18/16 20:54 ; Start 12/14/16 at 21:00 Losartan Potassium (Cozaar) 25 mg DAILY PO Last administered on 12/14/16 10:04 ; Start 12/14/16 at 09:15; Stop 12/15/16 at 07:42; Status DC Furosemide (Lasix) 20 mg DAILY PO Last administered on 12/19/16 08:14; Start 12/14/16 at 09:15 Insulin Aspart (Novolog) 0-7 UNITS TIDWMEALS SQ Last administered on 12/15/16 13:14; Start 12/14/16 at 12:00 Dextrose (Dextrose 50%-Water Syringe) 12.5 gm PRN Q15MIN PRN IV SEE COMMENTS; Start 12/14/16 at 09:15 Insulin Aspart (Novolog) 15 units TIDAC SQ Last administered on 12/15/16 13:13 ; Start 12/14/16 at 12:00; Stop 12/15/16 at 14:29; Status DC Furosemide (Lasix) 80 mg Q12HR PO Last administered on 12/15/16 21:13; Start 12/14/16 at 21:00; Stop 12/16/16 at 00:00; Status DC Furosemide (Lasix) 40 mg 1X ONCE PO Last administered on 12/14/16 13:13; Start 12/14/16 at 12:45; Stop 12/14/16 at 12:50; Status DC Furosemide (Lasix) 20 mg 1X ONCE PO ; Start 12/14/16 at 12:45; Stop 12/14/16 at 12:46; Status Cancel Enoxaparin Sodium (Lovenox 80mg Syringe) 80 mg Q12H SQ Last administered on 04:36; Start 12/14/16 at 17:00 Cyclobenzaprine HCl (Flexeril) 5 mg PRN Q6HRS PRN PO MUSCLE SPASMS; Start 12/15 at 07:45 Losartan Potassium (Cozaar) 50 mg DAILY PO Last administered on 12/19/16 08:14 ; Start 12/15/16 at 09:00 Albuterol/ Ipratropium (Duoneb) 3 ml RTQID NEB Last administered on 12/18/16 20:06; Start 12/15/16 at 12:00 Insulin Aspart (Novolog) 30 units TIDAC SQ Last administered on 12/19/16 11:30 ; Start 12/15/16 at 16:30 Acetylcysteine (Mucomyst 20% Oral Solution) 600 mg Q8H PO Last administered on 12/16/16 06:50; Start 12/15/16 at 22:00; Stop 12/16/16 at 06:01; Status DC Non-Formulary Medication 1 ea BID INH Last administered on 12/19/16 08:15; Start 12/15/16 at 21:00 Acetaminophen 650 mg 650 mg PRN Q6HRS PRN PO HEADACHE Last administered on 12/15 19:50; Start 12/15/16 at 19:45 Heparin Sodium/ Sodium Chloride 1,000 ml @ As Directed STK-MED ONCE .ROUTE ; Start 12/16/16 at 08:52; Stop 12/16/16 at 08:53; Status DC Lidocaine HCl 20 ml STK-MED ONCE .ROUTE ; Start 12/16/16 at 08:52; Stop at 08:53; Status DC Iodixanol (Visipaque 320) 100 ml STK-MED ONCE .ROUTE ; Start 12/16/16 at 08:52; Stop 12/16/16 at 08:53; Status DC Fentanyl Citrate (Fentanyl 5ml Vial) 250 mcg STK-MED ONCE .ROUTE ; Start at 11:18; Stop 12/16/16 at 11:19; Status DC Midazolam HCl (Versed) 5 mg STK-MED ONCE .ROUTE ; Start 12/16/16 at 11:18; Stop 12/16/16 at 11:19; Status DC Heparin Sodium/ Sodium Chloride 1,000 unit 1X ONCE IART Last administered on 12:16; Start 12/16/16 at 11:30; Stop 12/16/16 at 11:31; Status DC Midazolam HCl (Versed) 5 mg 1X ONCE IV Last administered on 12/16/16 12:17; Start 12/16/16 at 11:30; Stop 12/16/16 at 11:31; Status DC Fentanyl Citrate (Fentanyl 5ml Vial) 250 mcg 1X ONCE IV Last administered on 12:17; Start 12/16/16 at 11:30; Stop 12/16/16 at 11:31; Status DC Iodixanol (Visipaque 320) 100 ml 1X ONCE IART Last administered on 12/16/16 12:16; Start 12/16/16 at 11:30; Stop 12/16/16 at 11:31; Status DC Lidocaine HCl 20 ml 1X ONCE IJ Last administered on 12/16/16 12:16; Start at 11:30; Stop 12/16/16 at 11:31; Status DC Potassium Chloride (Klor-Con) 40 meq 1X ONCE PO Last administered on 11:52; Start 12/17/16 at 08:30; Stop 12/17/16 at 08:31; Status DC Neomycin/ Polymyxin/ Bacitracin (Triple Antibiotic Ointment) 1 pkt BID TP Last administered on 12/19/16 08:15; Start 12/17/16 at 09:00 Nitroglycerin (Nitrostat) 0.4 mg STK-MED ONCE SL ; Start 12/17/16 at 13:09; Stop 12/17/16 at 13:10; Status DC Nitroglycerin (Nitrostat) 0.4 mg PRN Q5MIN PRN SL CHEST PAIN Last administered on 12/17/16 14:57; Start 12/17/16 at 13:15 Diltiazem HCl 10 mg 10 mg 1X ONCE IVP ; Start 12/17/16 at 13:45; Stop 12/17/16 at 13:46; Status DC Diltiazem HCl 125 mg/Dextrose 125 ml @ 0 mls/hr CONT PRN IV SEE I/O RECORD; Start 12/17/16 at 13:30 Sodium Chloride (Iv Sodium Chloride 0.45%) 1,000 ml @ 60 mls/hr [id number] IV Last administered on 12/18/16 08:34; Start 12/18/16 at 08:00; Stop 12/18/16 at 21:33; Status DC Sennosides (Senna) 17.2 mg PRN BID PRN PO CONSTIPATION, 2ND CHOICE Last administered on 12/18/16 08:32; Start 12/18/16 at 08:00 Polyethylene Glycol (miraLAX PACKET) 17 gm PRN DAILY PRN PO CONSTIPATION, 1ST CHOICE; Start 12/18/16 at 08:00 Nitroglycerin 0.4 mg 0.4 mg STK-MED ONCE SL ; Start 12/17/16 at 13:00; Stop at 08:33; Status DC Heparin Sodium/ Sodium Chloride 1,000 ml @ As Directed STK-MED ONCE .ROUTE ; Start 12/18/16 at 10:08; Stop 12/18/16 at 10:09; Status DC Lidocaine HCl 20 ml STK-MED ONCE .ROUTE ; Start 12/18/16 at 10:09; Stop at 10:10; Status DC Iodixanol (Visipaque 320) 100 ml STK-MED ONCE .ROUTE ; Start 12/18/16 at 10:09; Stop 12/18/16 at 10:10; Status DC Heparin Sodium (Porcine) (Heparin Sodium) 10,000 unit STK-MED ONCE .ROUTE ; Start 12/18/16 at 10:09; Stop 12/18/16 at 10:10; Status DC Heparin Sodium (Porcine) (Heparin Sodium) 10,000 unit STK-MED ONCE .ROUTE ; Start 12/18/16 at 10:50; Stop 12/18/16 at 10:51; Status DC Fentanyl Citrate (Fentanyl 5ml Vial) 250 mcg STK-MED ONCE .ROUTE ; Start at 10:51; Stop 12/18/16 at 10:52; Status DC Midazolam HCl (Versed) 5 mg STK-MED ONCE .ROUTE ; Start 12/18/16 at 10:51; Stop 12/18/16 at 10:52; Status DC Heparin Sodium/ Sodium Chloride 1,000 unit 1X ONCE IART Last administered on 11:22; Start 12/18/16 at 11:00; Stop 12/18/16 at 11:03; Status DC Midazolam HCl (Versed) 5 mg 1X ONCE IV Last administered on 12/18/16 12:03; Start 12/18/16 at 11:00; Stop 12/18/16 at 11:03; Status DC Fentanyl Citrate (Fentanyl 5ml Vial) 250 mcg 1X ONCE IV Last administered on 12:03; Start 12/18/16 at 11:00; Stop 12/18/16 at 11:03; Status DC Iodixanol (Visipaque 320) 100 ml 1X ONCE IART Last administered on 12/18/16 12:04; Start 12/18/16 at 11:00; Stop 12/18/16 at 11:03; Status DC Lidocaine HCl 20 ml 1X ONCE IJ Last administered on 12/18/16 11:22; Start at 11:00; Stop 12/18/16 at 11:03; Status DC Heparin Sodium (Porcine) 28684 unit 10,000 unit 1X ONCE IV Last administered on 12/18/16 12:08; Start 12/18/16 at 11:15; Stop 12/18/16 at 11:16; Status DC Tirofiban/Sodium Chloride (Aggrastat 5 Mg/ 100 ml Premix) 100 ml @ As Directed STK-MED ONCE IV ; Start 12/18/16 at 11:38; Stop 12/18/16 at 11:39; Status DC Clopidogrel Bisulfate 300 mg 300 mg 1X ONCE PO Last administered on 12/18/16 12:04; Start 12/18/16 at 11:45; Stop 12/18/16 at 11:46; Status DC Tirofiban/Sodium Chloride 100 ml @ 0 mls/hr 1X ONCE IV Last administered on 12:04; Start 12/18/16 at 11:45; Stop 12/18/16 at 11:46; Status DC Heparin Sodium/ Sodium Chloride 500 ml @ As Directed STK-MED ONCE .ROUTE ; Start 12/18/16 at 11:58; Stop 12/18/16 at 11:59; Status DC Nitroglycerin (Nitroglycerin) 200 mcg 1X ONCE IART Last administered on 12:11; Start 12/18/16 at 12:15; Stop 12/18/16 at 12:16; Status DC Fentanyl Citrate (Fentanyl 2ml Vial) 100 mcg STK-MED ONCE .ROUTE ; Start at 14:48; Stop 12/18/16 at 14:49; Status DC Fentanyl Citrate (Fentanyl 2ml Vial) 50 mcg 1X ONCE IV Last administered on 15:15; Start 12/18/16 at 15:15; Stop 12/18/16 at 15:22; Status DC Midazolam HCl (Versed) 1 mg 1X ONCE IV Last administered on 12/18/16 15:15; Start 12/18/16 at 15:15; Stop 12/18/16 at 15:22; Status DC Potassium Chloride (Klor-Con) 40 meq 1X ONCE PO Last administered on 15:28; Start 12/18/16 at 15:15; Stop 12/18/16 at 15:22; Status DC Diazepam (Valium) 5 mg PRN Q4HRS PRN PO ANXIETY Last administered on 12/18/16 15:27; Start 12/18/16 at 15:15 Aspirin (C[place]sey Aspirin) 325 mg DAILYWBKFT PO ; Start 12/18/16 at 16:00; Stop at 18:02; Status DC Clopidogrel Bisulfate (Plavix) 75 mg DAILYWBKFT PO ; Start 12/18/16 at 16:00; Stop 12/18/16 at 18:03; Status DC Aspirin (Chelsey Aspirin) 325 mg DAILYWBKFT PO Last administered on 12/19/16 08: 13; Start 12/19/16 at 09:00 Clopidogrel Bisulfate (Plavix) 75 mg DAILYWBKFT PO Last administered on 08:14; Start 12/19/16 at 09:00 Info (Anti-Coagulation Monitoring By Pharmacy) 1 each PRN DAILY PRN MC SEE COMMENTS Last administered on 12/19/16 13:23; Start 12/19/16 at 13:15 Active Scripts Active Reported Stiolto Respimat Inhal [place] (Tiotropium Br/Olodaterol HCl) 4 Gm Mist.inhal 4 Gm IH DAILY Novolog Flexpen (Insulin Aspart) 100 Unit/1 Ml Insuln.pen 1 Unit SQ Ventolin Hfa Inhaler (Albuterol Sulfate) 18 Gm Hfa.aer.ad 2 Puff INH QID Flovent 110MCG Hfa (Fluticasone Propionate) 12 Gm Aer.w.adap 2 Puff IH BID Losartan Potassium 25 Mg Tablet 100 Mg PO DAILY Levemir (Insulin Detemir) 100 Unit/1 Ml Vial 70 Unit SQ QHS Vitals/I & O Vital Sign - Last 24 Hours 12/18/16 12/18/16 12/18/16 12/18/16 16:00 16:35 17:37 18:02 Temp 98.2 98.2 Pulse 80 81 Resp 18 18 B/P 109/44 110/48 Pulse Ox 99 98 99 O2 Delivery Nasal Cannula Nasal Cannula Nasal Cannula Nasal Cannula O2 Flow Rate 3.0 3.0 3.0 3.0 12/18/16 12/18/16 12/18/16 12/18/16 19:00 20:00 20:00 20:07 Temp 99.9 99.9 Pulse 82 78 Resp 18 20 B/P 140/53 131/46 Pulse Ox 96 96 95 O2 Delivery Nasal Cannula Nasal Cannula Nasal Cannula Nasal Cannula O2 Flow Rate 3.0 3.0 3.0 3.0 12/18/16 12/18/16 12/18/16 12/18/16 21:00 22:00 23:00 23:52 Temp 99.6 99.6 Pulse 76 73 73 89 Resp 20 18 20 B/P 135/61 130/48 127/78 114/74 Pulse Ox 95 95 96 96 O2 Delivery Nasal Cannula Nasal Cannula Nasal Cannula Nasal Cannula O2 Flow Rate 3.0 3.0 3.0 3.0 12/18/16 12/19/16 12/19/16 12/19/16 23:52 01:00 02:00 02:55 Pulse 74 62 68 Resp 20 20 B/P 146/73 144/57 114/57 Pulse Ox 96 98 97 O2 Delivery Nasal Cannula Nasal Cannula Nasal Cannula Nasal Cannula O2 Flow Rate 3.0 3.0 3.0 3.0 12/19/16 12/19/16 12/19/16 12/19/16 03:39 03:55 05:00 06:00 Temp 99.0 99.0 Pulse 64 61 63 Resp 20 20 B/P 117/63 148/76 150/72 Pulse Ox 98 98 97 O2 Delivery Nasal Cannula Nasal Cannula Nasal Cannula Nasal Cannula O2 Flow Rate 3.0 3.0 3.0 3.0 12/19/16 12/19/16 12/19/16 12/19/16 07:00 08:00 08:00 08:14 Temp 98.5 98.5 Pulse 55 74 76 Resp 20 20 B/P 151/63 149/73 151/63 Pulse Ox 97 97 O2 Delivery Nasal Cannula Nasal Cannula Nasal Cannula O2 Flow Rate 3.0 3.0 3.0 12/19/16 12:00 Temp 98.4 98.4 Pulse 68 Resp 20 B/P 120/62 Pulse Ox 98 O2 Delivery Nasal Cannula O2 Flow Rate 3.0 Intake and Output 12/18/16 12/18/16 12/19/16 15:00 23:00 07:00 Intake Total 410 ml 1259 ml 1200 ml Output Total 300 ml 375 ml 1300 ml Balance 110 ml 884 ml -100 ml ELLE WEBER MD Dec 19, 2016 15:35
[2016-12-19] MEDS: INSULIN DETEMIR 300 UNITS/3 ML INSULN.PEN. SQ SCH (20:49)
[2016-12-20 03:15] VITALS: BP 119/66
[2016-12-20] MEDS: IPRATRPIUM/ALBUTEROL 0.5/2.5MG 3 ML NEBU. NEB SCH ×2 (07:10→11:32)
[2016-12-20] MEDS: INSULIN ASPART 300 UNITS/3 ML INSULN.PEN SQ SCH ×4 (08:00→12:34)
[2016-12-20 08:24] VITALS: BP 110/39
[2016-12-20] MEDS: FUROSEMIDE 20 MG TABLET PO SCH (08:27)
[2016-12-20 08:28] VITALS: BP 110/39
[2016-12-20] MEDS: CLOPIDOGREL BISULFATE 75 MG TABLET PO SCH (08:28)
[2016-12-20] MEDS: FLOVENT 100 MCG INH SCH (08:28)
[2016-12-20] MEDS: ASPIRIN 325 MG TABLET PO SCH (08:28)
[2016-12-20] MEDS: LOSARTAN POTASSIUM 50 MG TABLET. PO SCH (08:28)
[2016-12-20] MEDS: FLUTICASONE 50MCG/NASAL SPRAY 16GM BOTTLE. NS SCH (08:33)
[2016-12-20] MEDS: NEOMY/BACITR/POLYMYXIN OINT PACKET. TP SCH (09:33)
--- NOTE | 2016-12-20 09:49 | PDOC ---
PULMONARY PROGRESS NOTES Subjective feels better s/p LAD stent Vitals Vital Signs Date Time Temp Pulse Resp B/P Pulse Ox O2 Delivery O2 Flow Rate FiO2 12/20/16 08:28 48 110/39 12/20/16 08:24 97.8 18 97 Nasal Cannula 3.0 97.8 General: Alert, No acute distress Lungs: Clear Cardiovascular: S1 Abdomen: Soft, Other (obese) Neuro Exam: Alert Extremities: Other (trace edema) Skin: Warm Labs Laboratory Tests Test 12/18/16 13:34 12/18/16 14:30 12/18/16 17:53 12/18/16 20:17 Glucose (Fingerstick) 120mg/dL (70-99) 168mg/dL (70-99) 164mg/dL (70-99) Activated Clotting Time SEC (90-125) Test 12/19/16 08:12 12/19/16 11:15 12/19/16 12:50 12/19/16 17:30 Glucose (Fingerstick) 138mg/dL (70-99) 123mg/dL (70-99) 136mg/dL (70-99) White Blood Count 7.5x10^3/uL (4.0-11.0) Red Blood Count 4.82x10^6/uL (4.30-5.70) Hemoglobin 13.1g/dL (13.0-17.5) Hematocrit 38.6% (39.0-53.0) Mean Corpuscular Volume 80fL (79-100) Mean Corpuscular Hemoglobin 27pg (25-35) Mean Corpuscular Hemoglobin Concent 34g/dL (31-37) Red Cell Distribution Width 15.5% (11.5-14.5) Platelet Count 198x10^3/uL (140-400) Sodium Level 139mmol/L (136-145) Potassium Level 4.5mmol/L (3.5-5.1) Chloride Level 100mmol/L (98-107) Carbon Dioxide Level 35mmol/L (21-32) Anion Gap 4 (6-14) Blood Urea Nitrogen 21mg/dL (8-26) Creatinine 1.2mg/dL (0.7-1.3) Estimated GFR (Cockcroft-Gault) 60.6 Glucose Level 157mg/dL (70-99) Calcium Level 8.8mg/dL (8.5-10.1) Test 12/19/16 20:46 12/20/16 07:31 Glucose (Fingerstick) 126mg/dL (70-99) 112mg/dL (70-99) Laboratory Tests Test 12/19/16 11:15 12/19/16 12:50 12/19/16 17:30 12/19/16 20:46 White Blood Count 7.5x10^3/uL (4.0-11.0) Red Blood Count 4.82x10^6/uL (4.30-5.70) Hemoglobin 13.1g/dL (13.0-17.5) Hematocrit 38.6% (39.0-53.0) Mean Corpuscular Volume 80fL (79-100) Mean Corpuscular Hemoglobin 27pg (25-35) Mean Corpuscular Hemoglobin Concent 34g/dL (31-37) Red Cell Distribution Width 15.5% (11.5-14.5) Platelet Count 198x10^3/uL (140-400) Sodium Level 139mmol/L (136-145) Potassium Level 4.5mmol/L (3.5-5.1) Chloride Level 100mmol/L (98-107) Carbon Dioxide Level 35mmol/L (21-32) Anion Gap 4 (6-14) Blood Urea Nitrogen 21mg/dL (8-26) Creatinine 1.2mg/dL (0.7-1.3) Estimated GFR (Cockcroft-Gault) 60.6 Glucose Level 157mg/dL (70-99) Calcium Level 8.8mg/dL (8.5-10.1) Glucose (Fingerstick) 123mg/dL (70-99) 136mg/dL (70-99) 126mg/dL (70-99) Test 12/20/16 07:31 Glucose (Fingerstick) 112mg/dL (70-99) Medications Active Scripts Medications Dose Route/Sig Days Date Category Stiolto Respimat Inhal [place] (Tiotropium Br/Olodaterol HCl) 4 Gm Mist.inhal 4 Gm IH DAILY 11/10/16 Reported Novolog Flexpen (Insulin Aspart) 100 Unit/1 Ml Insuln.pen 1 Unit SQ 11/10/16 Reported Ventolin Hfa Inhaler (Albuterol Sulfate) 18 Gm Hfa.aer.ad 2 Puff INH QID 11/10/16 Reported Flovent 110MCG Hfa (Fluticasone Propionate) 12 Gm Aer.w.adap 2 Puff IH BID 11/10/16 Reported Losartan Potassium 25 Mg Tablet 100 Mg PO DAILY 11/10/16 Reported Levemir (Insulin Detemir) 100 Unit/1 Ml Vial 70 Unit SQ QHS 11/10/16 Reported Impression . 1. [id number] hypoxemic respiratory failure secondary to rigea-od-pxrbwyd systolic heart failure. 2. CAD, s/p cath, MV CAD, s/p stent LAD 3. hypertension. 4. Elevated troponin./NSTMI 5. Type 2 diabetes. 6. Leukocytosis, suspect reactive. 7. Elevated liver chemistries suspect hepatic congestion. resolved 8. COPD,moderate FEV1 1.3(41%) Predicted 9. Multivessel CAD 10. 2.2 cm mass with eccentric calcification, ? malignancy vs hemartoma Plan . 1. s/p cath .Stent LAD. MV CAD, not the best optimum candidate for surgery . d/ w Dr Ogden 2. CT Chest with 2.2 cm left lung mass with eccentric calcification, could be Hamartoma, cannot exclude Neoplasm. would benefit from OP PET, since CABG is cancelled , Cardiology to consider PCI. would recommend stabilizing cardiac status first before persuing with any invasive biopsy such as Bronch or ct guided lung biopsy. would recommend OP PET first. If Hypermetabolic mass,then have to wait 3-4 weeks before invasive biopsy and stabilization of cardiac status (may need at least 4-6 week on anti-platelet therapy ) 3. Continue oxygen supplementation. 4. No need for antibiotics or steroids. 5. d/w Dr Price and Dr Ogden 6. Pt on home oxygen at 4 litres. 7. ok with dc home today. f/u with me on January 06, PET before GINGER KUMARI MD Dec 20, 2016 09:49
--- NOTE | 2016-12-20 11:49 | PDOC ---
PROGRESS NOTES Subjective Subjective Patient without complaint, feels ready to go home. Objective Objective Vital Signs Date Time Temp Pulse Resp B/P Pulse Ox O2 Delivery O2 Flow Rate FiO2 12/20/16 11:32 98 Nasal Cannula 3.0 12/20/16 08:28 48 110/39 12/20/16 08:24 97.8 18 97.8 Intake and Output 12/20/16 07:00 Intake Total 950 ml Output Total 1900 ml Balance -950 ml Intake Oral 950 ml Output Urine Total 1900 ml # Bowel Movements 1 Physical Exam Abdomen: Normal bowel sounds, Soft, No tenderness Heart: Regular rate Extremities: No edema General: Alert, Oriented X3, No acute distress Lungs: Clear to auscultation Assessment Assessment Problems Medical Problems: (1) Acute on chronic diastolic CHF (congestive heart failure) Status: Acute (2) Acute on chronic respiratory failure Status: Acute (3) Cardiac ischemia Status: Acute (4) COPD exacerbation Status: Acute Plan Plan of Care 1. CAD, s/p angioplasty and stent placement x2 - stable. Home today on Plavix and ASA. Follow up with Dr Price. 2. Acute on chronic respiratory failure with COPD - much improved, back at baseline. Continue nebs and O2. Follow up with Dr Archuleta for PET scan to evaluate lung mass found on CT. 3. DM2 - well controlled, continue his usual insulins. 4. HTN - stable, home on his usual Losartan. 5. CHF - mild, continue low dose Lasix. K+ OK on lab yesterday. Comment Review of Relevant I have reviewed the following items thomas (where applicable) has been applied. Labs Laboratory Tests Test 12/18/16 13:34 12/18/16 14:30 12/18/16 17:53 12/18/16 20:17 Glucose (Fingerstick) 120mg/dL (70-99) 168mg/dL (70-99) 164mg/dL (70-99) Activated Clotting Time SEC (90-125) Test 12/19/16 08:12 12/19/16 11:15 12/19/16 12:50 12/19/16 17:30 Glucose (Fingerstick) 138mg/dL (70-99) 123mg/dL (70-99) 136mg/dL (70-99) White Blood Count 7.5x10^3/uL (4.0-11.0) Red Blood Count 4.82x10^6/uL (4.30-5.70) Hemoglobin 13.1g/dL (13.0-17.5) Hematocrit 38.6% (39.0-53.0) Mean Corpuscular Volume 80fL (79-100) Mean Corpuscular Hemoglobin 27pg (25-35) Mean Corpuscular Hemoglobin Concent 34g/dL (31-37) Red Cell Distribution Width 15.5% (11.5-14.5) Platelet Count 198x10^3/uL (140-400) Sodium Level 139mmol/L (136-145) Potassium Level 4.5mmol/L (3.5-5.1) Chloride Level 100mmol/L (98-107) Carbon Dioxide Level 35mmol/L (21-32) Anion Gap 4 (6-14) Blood Urea Nitrogen 21mg/dL (8-26) Creatinine 1.2mg/dL (0.7-1.3) Estimated GFR (Cockcroft-Gault) 60.6 Glucose Level 157mg/dL (70-99) Calcium Level 8.8mg/dL (8.5-10.1) Test 12/19/16 20:46 12/20/16 07:31 Glucose (Fingerstick) 126mg/dL (70-99) 112mg/dL (70-99) Laboratory Tests Test 12/19/16 12:50 12/19/16 17:30 12/19/16 20:46 12/20/16 07:31 Glucose (Fingerstick) 123mg/dL (70-99) 136mg/dL (70-99) 126mg/dL (70-99) 112mg/dL (70-99) Microbiology 12/14/16 Blood Culture - Final, Complete NO GROWTH AFTER 5 DAYS Medications Current Medications Nitroglycerin/ Dextrose (Nitroglycerin Drip) 250 ml @ 0 mls/hr CONT PRN IV SEE I/O RECORD Last administered on 12/14/16 05:15; Start 12/14/16 at 05:15 Albuterol/ Ipratropium (Duoneb) 6 ml 1X ONCE NEB Last administered on 05:17; Start 12/14/16 at 05:30; Stop 12/14/16 at 05:31; Status DC Furosemide (Lasix) 60 mg 1X ONCE IVP Last administered on 12/14/16 06:21; Start 12/14/16 at 06:30; Stop 12/14/16 at 06:31; Status DC Ondansetron HCl 4 mg 4 mg PRN Q8HRS PRN IV NAUSEA/VOMITING; Start 12/14/16 at 06:15; Stop 12/15/16 at 06:14; Status DC Sodium Chloride (Iv Sodium Chloride 0.9% 1000ml Bag) 1,000 ml @ 30 mls/hr Q24H IV Last administered on 12/14/16 06:21; Start 12/14/16 at 06:30; Stop at 06:29; Status DC Acetaminophen (Tylenol) 650 mg PRN Q4HRS PRN PO FEVER Last administered on 12/14 20:35; Start 12/14/16 at 06:15; Stop 12/15/16 at 06:14; Status DC Albuterol/ Ipratropium (Duoneb) 3 ml RTQID NEB Last administered on 12/15/16 07:39; Start 12/14/16 at 08:00; Stop 12/15/16 at 07:59; Status DC Fluticasone Propionate (Flonase) 2 spray DAILY NS Last administered on 09:53; Start 12/15/16 at 09:00 Non-Formulary Medication 4 gm DAILY IH ; Start 12/15/16 at 09:00; Status UNV Insulin Aspart (Novolog) 25 units TIDAC SQ ; Start 12/14/16 at 11:30; Stop 12/14 at 11:55; Status DC Losartan Potassium (Cozaar) 25 mg DAILY PO ; Start 12/15/16 at 09:00; Stop 12/15 at 09:00; Status DC Albuterol Sulfate (Ventolin Neb Soln) 2.5 mg PRN Q4HRS PRN NEB SHORTNESS OF BREATH; Start 12/14/16 at 09:15 Insulin Detemir (Levemir) 70 units QHS SQ Last administered on 12/19/16 20:49 ; Start 12/14/16 at 21:00 Losartan Potassium (Cozaar) 25 mg DAILY PO Last administered on 12/14/16 10:04 ; Start 12/14/16 at 09:15; Stop 12/15/16 at 07:42; Status DC Furosemide (Lasix) 20 mg DAILY PO Last administered on 12/20/16 08:27; Start 12/14/16 at 09:15 Insulin Aspart (Novolog) 0-7 UNITS TIDWMEALS SQ Last administered on 12/15/16 13:14; Start 12/14/16 at 12:00 Dextrose (Dextrose 50%-Water Syringe) 12.5 gm PRN Q15MIN PRN IV SEE COMMENTS; Start 12/14/16 at 09:15 Insulin Aspart (Novolog) 15 units TIDAC SQ Last administered on 12/15/16 13:13 ; Start 12/14/16 at 12:00; Stop 12/15/16 at 14:29; Status DC Furosemide (Lasix) 80 mg Q12HR PO Last administered on 12/15/16 21:13; Start 12/14/16 at 21:00; Stop 12/16/16 at 00:00; Status DC Furosemide (Lasix) 40 mg 1X ONCE PO Last administered on 12/14/16 13:13; Start 12/14/16 at 12:45; Stop 12/14/16 at 12:50; Status DC Furosemide (Lasix) 20 mg 1X ONCE PO ; Start 12/14/16 at 12:45; Stop 12/14/16 at 12:46; Status Cancel Enoxaparin Sodium (Lovenox 80mg Syringe) 80 mg Q12H SQ Last administered on 05:54; Start 12/14/16 at 17:00 Cyclobenzaprine HCl (Flexeril) 5 mg PRN Q6HRS PRN PO MUSCLE SPASMS; Start 12/15 at 07:45 Losartan Potassium (Cozaar) 50 mg DAILY PO Last administered on 12/20/16 08:28 ; Start 12/15/16 at 09:00 Albuterol/ Ipratropium (Duoneb) 3 ml RTQID NEB Last administered on 12/20/16 11:32; Start 12/15/16 at 12:00 Insulin Aspart (Novolog) 30 units TIDAC SQ Last administered on 12/20/16 08:32 ; Start 12/15/16 at 16:30 Acetylcysteine (Mucomyst 20% Oral Solution) 600 mg Q8H PO Last administered on 12/16/16 06:50; Start 12/15/16 at 22:00; Stop 12/16/16 at 06:01; Status DC Non-Formulary Medication 1 ea BID INH Last administered on 12/20/16 08:28; Start 12/15/16 at 21:00 Acetaminophen 650 mg 650 mg PRN Q6HRS PRN PO HEADACHE Last administered on 12/15 19:50; Start 12/15/16 at 19:45 Heparin Sodium/ Sodium Chloride 1,000 ml @ As Directed STK-MED ONCE .ROUTE ; Start 12/16/16 at 08:52; Stop 12/16/16 at 08:53; Status DC Lidocaine HCl 20 ml STK-MED ONCE .ROUTE ; Start 12/16/16 at 08:52; Stop at 08:53; Status DC Iodixanol (Visipaque 320) 100 ml STK-MED ONCE .ROUTE ; Start 12/16/16 at 08:52; Stop 12/16/16 at 08:53; Status DC Fentanyl Citrate (Fentanyl 5ml Vial) 250 mcg STK-MED ONCE .ROUTE ; Start at 11:18; Stop 12/16/16 at 11:19; Status DC Midazolam HCl (Versed) 5 mg STK-MED ONCE .ROUTE ; Start 12/16/16 at 11:18; Stop 12/16/16 at 11:19; Status DC Heparin Sodium/ Sodium Chloride 1,000 unit 1X ONCE IART Last administered on 12:16; Start 12/16/16 at 11:30; Stop 12/16/16 at 11:31; Status DC Midazolam HCl (Versed) 5 mg 1X ONCE IV Last administered on 12/16/16 12:17; Start 12/16/16 at 11:30; Stop 12/16/16 at 11:31; Status DC Fentanyl Citrate (Fentanyl 5ml Vial) 250 mcg 1X ONCE IV Last administered on 12:17; Start 12/16/16 at 11:30; Stop 12/16/16 at 11:31; Status DC Iodixanol (Visipaque 320) 100 ml 1X ONCE IART Last administered on 12/16/16 12:16; Start 12/16/16 at 11:30; Stop 12/16/16 at 11:31; Status DC Lidocaine HCl 20 ml 1X ONCE IJ Last administered on 12/16/16 12:16; Start at 11:30; Stop 12/16/16 at 11:31; Status DC Potassium Chloride (Klor-Con) 40 meq 1X ONCE PO Last administered on 11:52; Start 12/17/16 at 08:30; Stop 12/17/16 at 08:31; Status DC Neomycin/ Polymyxin/ Bacitracin (Triple Antibiotic Ointment) 1 pkt BID TP Last administered on 12/20/16 09:33; Start 12/17/16 at 09:00 Nitroglycerin (Nitrostat) 0.4 mg STK-MED ONCE SL ; Start 12/17/16 at 13:09; Stop 12/17/16 at 13:10; Status DC Nitroglycerin (Nitrostat) 0.4 mg PRN Q5MIN PRN SL CHEST PAIN Last administered on 12/17/16 14:57; Start 12/17/16 at 13:15 Diltiazem HCl 10 mg 10 mg 1X ONCE IVP ; Start 12/17/16 at 13:45; Stop 12/17/16 at 13:46; Status DC Diltiazem HCl 125 mg/Dextrose 125 ml @ 0 mls/hr CONT PRN IV SEE I/O RECORD; Start 12/17/16 at 13:30 Sodium Chloride (Iv Sodium Chloride 0.45%) 1,000 ml @ 60 mls/hr [id number] IV Last administered on 12/18/16 08:34; Start 12/18/16 at 08:00; Stop 12/18/16 at 21:33; Status DC Sennosides (Senna) 17.2 mg PRN BID PRN PO CONSTIPATION, 2ND CHOICE Last administered on 12/18/16 08:32; Start 12/18/16 at 08:00 Polyethylene Glycol (miraLAX PACKET) 17 gm PRN DAILY PRN PO CONSTIPATION, 1ST CHOICE; Start 12/18/16 at 08:00 Nitroglycerin 0.4 mg 0.4 mg STK-MED ONCE SL ; Start 12/17/16 at 13:00; Stop at 08:33; Status DC Heparin Sodium/ Sodium Chloride 1,000 ml @ As Directed STK-MED ONCE .ROUTE ; Start 12/18/16 at 10:08; Stop 12/18/16 at 10:09; Status DC Lidocaine HCl 20 ml STK-MED ONCE .ROUTE ; Start 12/18/16 at 10:09; Stop at 10:10; Status DC Iodixanol (Visipaque 320) 100 ml STK-MED ONCE .ROUTE ; Start 12/18/16 at 10:09; Stop 12/18/16 at 10:10; Status DC Heparin Sodium (Porcine) (Heparin Sodium) 10,000 unit STK-MED ONCE .ROUTE ; Start 12/18/16 at 10:09; Stop 12/18/16 at 10:10; Status DC Heparin Sodium (Porcine) (Heparin Sodium) 10,000 unit STK-MED ONCE .ROUTE ; Start 12/18/16 at 10:50; Stop 12/18/16 at 10:51; Status DC Fentanyl Citrate (Fentanyl 5ml Vial) 250 mcg STK-MED ONCE .ROUTE ; Start at 10:51; Stop 12/18/16 at 10:52; Status DC Midazolam HCl (Versed) 5 mg STK-MED ONCE .ROUTE ; Start 12/18/16 at 10:51; Stop 12/18/16 at 10:52; Status DC Heparin Sodium/ Sodium Chloride 1,000 unit 1X ONCE IART Last administered on 11:22; Start 12/18/16 at 11:00; Stop 12/18/16 at 11:03; Status DC Midazolam HCl (Versed) 5 mg 1X ONCE IV Last administered on 12/18/16 12:03; Start 12/18/16 at 11:00; Stop 12/18/16 at 11:03; Status DC Fentanyl Citrate (Fentanyl 5ml Vial) 250 mcg 1X ONCE IV Last administered on 12:03; Start 12/18/16 at 11:00; Stop 12/18/16 at 11:03; Status DC Iodixanol (Visipaque 320) 100 ml 1X ONCE IART Last administered on 12/18/16 12:04; Start 12/18/16 at 11:00; Stop 12/18/16 at 11:03; Status DC Lidocaine HCl 20 ml 1X ONCE IJ Last administered on 12/18/16 11:22; Start at 11:00; Stop 12/18/16 at 11:03; Status DC Heparin Sodium (Porcine) 22888 unit 10,000 unit 1X ONCE IV Last administered on 12/18/16 12:08; Start 12/18/16 at 11:15; Stop 12/18/16 at 11:16; Status DC Tirofiban/Sodium Chloride (Aggrastat 5 Mg/ 100 ml Premix) 100 ml @ As Directed STK-MED ONCE IV ; Start 12/18/16 at 11:38; Stop 12/18/16 at 11:39; Status DC Clopidogrel Bisulfate 300 mg 300 mg 1X ONCE PO Last administered on 12/18/16 12:04; Start 12/18/16 at 11:45; Stop 12/18/16 at 11:46; Status DC Tirofiban/Sodium Chloride 100 ml @ 0 mls/hr 1X ONCE IV Last administered on 12:04; Start 12/18/16 at 11:45; Stop 12/18/16 at 11:46; Status DC Heparin Sodium/ Sodium Chloride 500 ml @ As Directed STK-MED ONCE .ROUTE ; Start 12/18/16 at 11:58; Stop 12/18/16 at 11:59; Status DC Nitroglycerin (Nitroglycerin) 200 mcg 1X ONCE IART Last administered on 12:11; Start 12/18/16 at 12:15; Stop 12/18/16 at 12:16; Status DC Fentanyl Citrate (Fentanyl 2ml Vial) 100 mcg STK-MED ONCE .ROUTE ; Start at 14:48; Stop 12/18/16 at 14:49; Status DC Fentanyl Citrate (Fentanyl 2ml Vial) 50 mcg 1X ONCE IV Last administered on 15:15; Start 12/18/16 at 15:15; Stop 12/18/16 at 15:22; Status DC Midazolam HCl (Versed) 1 mg 1X ONCE IV Last administered on 12/18/16 15:15; Start 12/18/16 at 15:15; Stop 12/18/16 at 15:22; Status DC Potassium Chloride (Klor-Con) 40 meq 1X ONCE PO Last administered on 15:28; Start 12/18/16 at 15:15; Stop 12/18/16 at 15:22; Status DC Diazepam (Valium) 5 mg PRN Q4HRS PRN PO ANXIETY Last administered on 12/18/16 15:27; Start 12/18/16 at 15:15 Aspirin (Chelsey Aspirin) 325 mg DAILYWBKFT PO ; Start 12/18/16 at 16:00; Stop at 18:02; Status DC Clopidogrel Bisulfate (Plavix) 75 mg DAILYWBKFT PO ; Start 12/18/16 at 16:00; Stop 12/18/16 at 18:03; Status DC Aspirin (Chelsey Aspirin) 325 mg DAILYWBKFT PO Last administered on 12/20/16 08: 28; Start 12/19/16 at 09:00 Clopidogrel Bisulfate (Plavix) 75 mg DAILYWBKFT PO Last administered on 08:28; Start 12/19/16 at 09:00 Info (Anti-Coagulation Monitoring By Pharmacy) 1 each PRN DAILY PRN MC SEE COMMENTS Last administered on 12/19/16 13:23; Start 12/19/16 at 13:15 Active Scripts Active Reported Stiolto Respimat Inhal [place] (Tiotropium Br/Olodaterol HCl) 4 Gm Mist.inhal 4 Gm IH DAILY Novolog Flexpen (Insulin Aspart) 100 Unit/1 Ml Insuln.pen 1 Unit SQ Ventolin Hfa Inhaler (Albuterol Sulfate) 18 Gm Hfa.aer.ad 2 Puff INH QID Flovent 110MCG Hfa (Fluticasone Propionate) 12 Gm Aer.w.adap 2 Puff IH BID Losartan Potassium 25 Mg Tablet 100 Mg PO DAILY Levemir (Insulin Detemir) 100 Unit/1 Ml Vial 70 Unit SQ QHS Vitals/I & O Vital Sign - Last 24 Hours 12/19/16 12/19/16 12/19/16 12/19/16 12:00 16:07 17:19 19:30 Temp 98.4 98.2 98.4 98.2 Pulse 68 69 Resp 20 22 B/P 120/62 140/51 Pulse Ox 98 95 98 O2 Delivery Nasal Cannula Nasal Cannula Nasal Cannula Nasal Cannula O2 Flow Rate 3.0 3.0 3.0 3.0 12/19/16 12/19/16 12/19/16 12/20/16 19:30 20:59 23:42 03:15 Temp 98.5 98.7 98.5 98.5 98.7 98.5 Pulse 50 53 57 Resp 18 18 18 B/P 114/76 133/62 119/66 Pulse Ox 98 97 98 99 O2 Delivery Nasal Cannula Nasal Cannula Nasal Cannula Nasal Cannula O2 Flow Rate 3.0 3.0 3.0 3.0 12/20/16 12/20/16 12/20/16 12/20/16 07:11 07:45 08:24 08:28 Temp 97.8 97.8 Pulse 48 48 Resp 18 B/P 110/39 110/39 Pulse Ox 98 97 O2 Delivery Nasal Cannula Nasal Cannula Nasal Cannula O2 Flow Rate 3.0 3.0 3.0 12/20/16 11:32 Pulse Ox 98 O2 Delivery Nasal Cannula O2 Flow Rate 3.0 Intake and Output 12/19/16 12/19/16 12/20/16 15:00 23:00 07:00 Intake Total 350 ml 600 ml Output Total 250 ml 1150 ml 500 ml Balance -250 ml -800 ml 100 ml STANFORD GARCIA MD Dec 20, 2016 11:49
[2016-12-20] MEDS: ANTI-COAG MONITOR BY PHARMACY. MC PRN (11:59)
[2016-12-20] MEDS ORDERED: FURO20TA3 PO (12:00)
[2016-12-20] MEDS ORDERED: CLOP75TA PO (12:00)
[2016-12-20] MEDS ORDERED: NITR0.4T SL (12:00)
[2016-12-20] MEDS ORDERED: ASPI325T4 PO (12:00)
[2016-12-20] MEDS ORDERED: ATOR20TA58 PO (13:31)
--- NOTE | 2016-12-20 13:34 | DS ---
DATE OF DISCHARGE: 12/20/2016 CHIEF COMPLAINT: Shortness of breath. HISTORY OF PRESENT ILLNESS: The patient is a 66-year-old male with a history of COPD who presented to the Emergency Room with the above complaint. He apparently had the onset of symptoms several days prior to admission and they had gradually worsened. He was already on oxygen at home and he used his nebulized breathing treatments, but he was feeling increasingly short of breath. Initial evaluation in the Emergency Room showed the patient to be in mild respiratory distress. He was also felt to be experiencing an exacerbation of congestive heart failure. Treatment was started and he was admitted for further treatment. HOSPITAL COURSE: The patient was admitted and placed on telemetry. He was seen in consultation by Dr. Price, Dr. Archuleta, and Dr. Buckley. The patient initially required BiPAP and a nitroglycerin drip. He was given extra Lasix and did have some diuresis with this, which improved his respiratory status and the Bipap was discontinued. He had atrial fibrillation, but this spontaneously converted and he then remained in sinus rhythm with frequent PACs for the rest of his hospital stay. The patient had an echocardiogram, which showed an ejection fraction of 45%, which was similar to results from a previous echocardiogram. The patient's respiratory status improved as he was diuresed and he is now breathing comfortably on his usual 3-4 liters of oxygen per nasal cannula. The patient had a cardiac catheterization, which showed significant diffuse coronary artery disease. He was considered to be a candidate for a CABG and so Dr. Buckley was consulted. Workup for this was undertaken, which included a CT of the chest. This unfortunately showed a new nodule in the left lower lobe. Dr. Buckley felt that this would need to be evaluated and treated before the patient could undergo cardiac bypass surgery. Therefore, Dr. Price performed angioplasty and the placement of 2 bare-metal stents in the LAD on 12/18/2016 for short- term treatment of his CAD. The patient remained stable after this. He has had no further chest pain. Dr. Archuleta recommends an outpatient PET scan for further evaluation of his lung nodule. Biopsy will be undertaken if the PET scan is abnormal. The patient feels much better and will be discharged to home today. His blood pressure is controlled with his usual Losartan. His diabetes is very well controlled with his usual insulins. His congestive heart failure is presently compensated on a low dose of Lasix daily. FINAL DIAGNOSES: 1. Coronary artery disease. 2. Systolic congestive heart failure with acute exacerbation. 3. [id number] respiratory failure with COPD. 4. Diabetes mellitus type 2, insulin-dependent. 5. Lung nodule, left lower lobe. 6. Hypertension. DISCHARGE MEDICATIONS: Aspirin 325 mg daily, Plavix 75 mg daily, furosemide 20 mg daily, nitroglycerin 0.4 mg sublingual p.r.n., albuterol inhaler and nebulized treatments p.r.n., Flovent 2 puffs b.i.d., NovoLog insulin, Levemir insulin 70 units at bedtime, losartan 100 mg daily, Stiolto Respimat 1 inhalation daily. DISCHARGE INSTRUCTIONS: Follow up with Dr. Barrett within 2 weeks. Follow up with Dr. Archuleta and Dr. Price as advised. STANFORD GARCIA MD DR: PATRICA/anusha JOB#: [id number] / [id number] BRENNEN
[2016-12-20 14:08] LABS: CHOLESTEROL/HDL RATIO 5.1
--- NOTE | 2016-12-20 14:31 | PDOC ---
Provider Note Provider Note Covering for Dr. Price. He is being discharged by the admitting physician today. Will need to be on aspirin and Plavix for at least 4-6 weeks before it could be discontinued for a possible biopsy. Lipid profile is to be done on the blood drawn in the morning of 12/19/16.. Discharge on atorvastatin 20 mg a day as per the guidelines. He has had sinus arrhythmia at night with some episodes of bradycardia and prolonged R-R interval. He also has COPD. There is thus a relative contraindication to beta blockers. Follow-up with Dr. Price. FRANCISCO REED MD Dec 20, 2016 14:31
--- NOTE | 2016-12-24 08:28 | RAD ---
Bilateral lower extremity vein mapping History: Preoperative CABG. Comparison: None. Technique: Grayscale imaging was performed of the superficial veins of both lower extremities. Findings: Right greater saphenous vein near the confluence with the common femoral vein has diameter 5.1 mm. In the proximal thigh, diameter is 5.6 mm. In the mid thigh, diameter is 4.1 mm. In the distal thigh, diameter is 2.7 mm. At the knee, diameter is 2.6 mm. In the proximal calf, diameter is 2.6 mm. In the mid calf, diameter is 2.7 mm. In the distal calf, diameter is 2.7 mm. Right lesser saphenous vein in the proximal calf has diameter of 3.3 mm. In the mid calf, diameter is 2.0 mm. In the distal calf, diameter is 2.0 mm. Left greater saphenous vein near the confluence of the common femoral vein has diameter of 6.9 mm. In the proximal thigh, diameter is 6.4 mm. In the mid thigh, diameter is 3.8 mm. In the distal thigh, diameter is 3.6 mm. At the knee, diameter is 2.2 mm. In the proximal calf, diameter is 2.9 mm. In the mid calf, diameter is 2.6 mm. In the distal calf, diameter is 2.8 mm. Left lesser saphenous vein at the proximal thigh has diameter of 3.6 mm. At the mid calf, diameter is 2.7 mm. At the distal calf, diameter is 2.6 mm. Bilateral greater and lesser saphenous veins appear patent. Impression: Vein mapping was performed of bilateral greater and lesser saphenous veins. Diameters are as above.
== END 2016-12-20 13:40 | disposition home or self-care (01) | DRG 248 ==
LOC: ER 04:59 → 1 WEST ICU 06:11 → 2 SOUTH 14:30 → 1 WEST ICU 12-18 10:29 → 2 NORTH 12-19 17:27
PROVIDERS: ADMIT Family Medicine; ATTEND Family Medicine
PROC: 5A09457 Assistance with Respiratory Ventilation, 24-96 Consecutive Hours, Continuous Positive Airway Pressure (ICD-10-PCS; 2016-12-14)
PROC: 4A023N7 Measurement of Cardiac Sampling and Pressure, Left Heart, Percutaneous Approach (ICD-10-PCS; principal; 2016-12-18)
PROC: B2111ZZ Fluoroscopy of Multiple Coronary Arteries using Low Osmolar Contrast (ICD-10-PCS; 2016-12-18)
PROC: 02703EZ Dilation of Coronary Artery, One Artery with Two Intraluminal Devices, Percutaneous Approach (ICD-10-PCS; 2016-12-18)
PROC: B2151ZZ Fluoroscopy of Left Heart using Low Osmolar Contrast (ICD-10-PCS; 2016-12-18)
DX: I21.4 Non-ST elevation (NSTEMI) myocardial infarction (principal); I50.23 Acute on chronic systolic (congestive) heart failure; J96.21 Acute and chronic respiratory failure with hypoxia; I50.43 Acute on chronic combined systolic (congestive) and diastolic (congestive) heart failure; I13.0 Hypertensive heart and chronic kidney disease with heart failure and stage 1 through stage 4 chronic kidney disease, or unspecified chronic kidney disease; J44.1 Chronic obstructive pulmonary disease with (acute) exacerbation; N17.9 Acute kidney failure, unspecified; D72.829 Elevated white blood cell count, unspecified; E11.22 Type 2 diabetes mellitus with diabetic chronic kidney disease; E78.5 Hyperlipidemia, unspecified; I25.10 Atherosclerotic heart disease of native coronary artery without angina pectoris; I25.5 Ischemic cardiomyopathy; I48.91 Unspecified atrial fibrillation; K76.1 Chronic passive congestion of liver; N18.9 Chronic kidney disease, unspecified; Z87.891 Personal history of nicotine dependence; Z79.4 Long term (current) use of insulin; Z95.5 Presence of coronary angioplasty implant and graft; Z99.81 Dependence on supplemental oxygen; M19.90 Unspecified osteoarthritis, unspecified site; I27.2 Other secondary pulmonary hypertension; R91.1 Solitary pulmonary nodule
CPT/HCPCS: 33967; 33968; 36415; 36600; 71010; 71250; 78452; 80048; 80053; 80061; 81001; 82553; 82805; 82947; 83036; 83605; 83880; 84484; 85027; 85347; 85610; 85730; 87040; 87641; 92928; 93005; 93306; 93308; 93460; 93880; 93970; 94010; 94250; 94640; 94660; 94760; 96361; 96374; 96376; A9505; C1725; C1769; C1771; C1773; C1876; C1887; C1892; G0269; J1650; J1815; J1940; J2250; J3010; J3490; J7030; J7620; 99291-25; J3246

== ENCOUNTER → 2016-12-31 | Outpatient (CLI) | payer OTHER ==
[2016-12-20 08:28] VITALS: BP 110/39
[~2016-12-31] MED LIST changes: +ASPI325T4 PO; +ATOR20TA58 PO; +CLOP75TA PO; +FURO20TA3 PO; +NITR0.4T SL
--- NOTE | 2016-12-31 13:22 | RAD ---
FDG tumor localization scan, PET/CT, 12/31/2016: History: Lung nodule Following IV injection of 13.4 mCi of 18 F-FDG, imaging was performed from the skull base to the proximal thighs. The noncontrast CT component was performed for attenuation correction and anatomic localization purposes rather than for primary diagnosis. The patient's blood glucose level at the time of injection was 95 MG/DL. Again noted is a 2.2 cm nodule in the left lower lobe. It does not demonstrate abnormal FDG uptake. No hypermetabolic pulmonary or mediastinal foci are seen. Physiologic muscular activity is seen in the chest, neck and at the hips. Normal GI tract and urinary tract activity is present in the abdomen and pelvis. No hypermetabolic abdominal or pelvic lesion is seen. Incidental CT findings include the presence of moderate aortic and coronary artery calcifications. The prostate gland is at the upper limits of normal in size. IMPRESSION: The patient's left lower lobe pulmonary nodule does not demonstrate significant FDG uptake, compatible with a benign etiology such as an old granuloma. False negative results can occur with low-grade neoplasms such as a carcinoid tumor.
== END | disposition home or self-care (01) ==
LOC: PETSC 10:11
PROVIDERS: ATTEND Internal Medicine Critical Care Medicine
DX: R91.8 Other nonspecific abnormal finding of lung field (principal)
CPT/HCPCS: 78815; A9552

== ENCOUNTER → 2017-05-21 | Outpatient (CLI) | payer OTHER ==
[2017-04-09 17:02] VITALS: BP 112/65
[~2017-05-21] MED LIST changes: -ASPI325T4 PO; +ASPI325T8 PO; +CARV3.12 PO; +DILT180C79 PO; +ISOS60TA2 PO; +PRED-220 PO; +RANO10002 PO
--- NOTE | 2017-05-21 09:48 | RAD ---
Indication follow-up lung mass. Axial images through the chest were obtained and are compared to an examination 5 months earlier. Note is made of a PET/CT examination 12/31/2016. Known pulmonary nodule in the left lower lobe, with an associated punctate calcification is unchanged in size measuring 2.2 cm some minimal pleural-parenchymal scarring is noted in the left lower lobe. An acute finding in the chest or new pulmonary nodule is not seen. Some mild the seminal adenopathy is noted appearing similar. Coronary artery calcification is noted. Imaging through the upper abdomen is unremarkable. A few tiny scattered calcified granulomas are noted. IMPRESSION: Stable pulmonary nodule in the left lower lobe. Continued imaging, establishing stability over a 2 year time frame, is advised to confirm benign etiology PQRS Compliance Statement: One or more of the following individualized dose reduction techniques were utilized for this examination: 1. Automated exposure control 2. Adjustment of the mA and/or kV according to patient size 3. Use of iterative reconstruction technique
== END | disposition home or self-care (01) ==
LOC: CT 08:58
PROVIDERS: ATTEND Internal Medicine Critical Care Medicine
DX: R91.8 Other nonspecific abnormal finding of lung field (principal)
CPT/HCPCS: 71250

== ENCOUNTER → 2017-11-19 | Outpatient (CLI) | payer OTHER | END | disposition home or self-care (01) | LOC: CT 09:10 | DX: J43.2 Centrilobular emphysema (principal); M47.894 Other spondylosis, thoracic region; I25.10 Atherosclerotic heart disease of native coronary artery without angina pectoris; I70.0 Atherosclerosis of aorta | CPT/HCPCS: 71250 ==

== ENCOUNTER 2018-03-23 22:02 | Emergency (ER) | payer OTHER ==
[2018-03-23] MEDS: PHENYLEPHRINE 0.5% NASAL SPRAY 15ML BOTTLE. NS (22:38)
[2018-03-23] MEDS: AMOXICILLIN/K CLAV 875/125MG TABLET. PO (23:25)
[2018-03-23] MEDS: IV NORMAL SALINE 500ML BAG 500 ML IV (23:45)
[2018-03-24 00:03] LABS: ADD MAN DIFF? NO
[2018-03-24 00:04] LABS: BASO # 0.1 x10^3/uL (0.0-0.2); BASO % 1 % (0-3); EOS # 0.3 x10^3/uL (0.0-0.7); EOS % 3 % (0-3); HEMATOCRIT 26.1 % (39.0-53.0); HEMOGLOBIN 7.8 g/dL (13.0-17.5); LYMPH # 2.2 x10^3/uL (1.0-4.8); LYMPH % 21 % (24-48); MEAN CORPUSCULAR HEMOGLOBIN 18 pg (25-35); MEAN CORPUSCULAR HGB CONC 30 g/dL (31-37); MEAN CORPUSCULAR VOLUME 59 fL (79-100); MONO # 1.4 x10^3/uL (0.0-1.1); MONO % 13 % (0-9); NEUT # 6.5 x10^3uL (1.8-7.7); NEUT % 62 % (31-73); PLATELET COUNT 370 x10^3/uL (140-400); RED CELL DISTRIBUTION WIDTH 21.5 % (11.5-14.5); WHITE BLOOD COUNT 10.5 x10^3/uL (4.0-11.0)
[2018-03-24 04:18] LABS: PLT ESTIMATE ADEQUATE (ADEQUATE); POLYCHROMASIA SLIGHT
[2018-03-24 04:19] LABS: ANISOCYTOSIS MOD; HYPOCHROMIA MARKED; MICROCYTOSIS MARKED; OVALOCYTES FEW
== END 2018-03-24 01:11 | disposition home or self-care (01) ==
LOC: ER 03-24 01:11
DX: R04.0 Epistaxis (principal); R42 Dizziness and giddiness; I48.91 Unspecified atrial fibrillation; J44.9 Chronic obstructive pulmonary disease, unspecified
CPT/HCPCS: 30905; 36415; 85025; 96360; 99284; J7040

== ENCOUNTER 2021-07-12 13:11 | Emergency (ER) | payer MEDICARE, OTHER ==
[~2021-07-12] VITALS: Ht 167.6 cm; Wt 76.6 kg
[~2021-07-12 13:11] MED LIST changes: +AMOX1TAB61 PO; -ISOS60TA2 PO; +ISOS60TA55 PO; -LOSA25TA4 PO; +LOSA25TA54 PO; -NITR0.4T SL; +NITR0.4T24 SL
--- NOTE | 2021-07-12 13:35 | RAD ---
CT HEAD INDICATION: Code stroke COMPARISON: None Available. Exposure: One or more of the following individualized dose reduction techniques were utilized for thi s examination: 1. Automated exposure control 2. Adjustment of the mA and/or kV according to patient size 3. Use of iterative reconstruction technique TECHNIQUE: 5 mm contiguous axial images were obtained from the skull base to the vertex in both bone and soft tissue algorithm. FINDINGS: There is hyperdensity appearing left middle cerebral artery, question hyperdense MCA sign. Mild bilat eral periventricular white matter hypodensities likely chronic small vessel ischemic disease. Small h ypodensity identified in the right frontal lobe likely old infarct. No evidence of acute intracranial hemorrhage. No extra-axial fluid collections. No mass effect or midline shift. Ventricular size is appropriate. Basal cisterns are patent. No fractures identified.Sánchez-white differentiation is preserved.Globes and orbits are within normal l imits. Paranasal sinuses and mastoid air cells are clear. IMPRESSION: Hyperdensity appearing left middle cerebral artery, question hyperdense MCA sign. Thrombus is not exc luded. Recommend CT angiogram. FOR INTERNAL CODING PURPOSES Critical result: Findings discussed with ER physician at 07/12/2021 1:33 PM. RESULT CODE: (C) Electronically signed by: Adolph Dalal MD (07/12/2021 1:33 PM) [id number]
[2021-07-12 13:37] LABS: BASO # 0.1 x10^3/uL (0.0-0.2); BASO % 1 % (0-3); CALCIUM 8.4 mg/dL (8.5-10.1); EOS # 0.4 x10^3/uL (0.0-0.7); EOS % 5 % (0-3); GFR 73.7; HEMATOCRIT 47.6 % (39.0-53.0); HEMOGLOBIN 15.9 g/dL (13.0-17.5); LYMPH # 1.8 x10^3/uL (1.0-4.8); LYMPH % 24 % (24-48); MEAN CORPUSCULAR HEMOGLOBIN 28 pg (25-35); MEAN CORPUSCULAR HGB CONC 33 g/dL (31-37); MEAN CORPUSCULAR VOLUME 83 fL (79-100); MONO # 0.8 x10^3/uL (0.0-1.1); MONO % 10 % (0-9); NEUT # 4.5 x10^3/uL (1.8-7.7); NEUT % 60 % (31-73); PLATELET COUNT 248 x10^3/uL (140-400); POTASSIUM 4.4 mmol/L (3.5-5.1); RED BLOOD COUNT 5.77 x10^6/uL (4.30-5.70); RED CELL DISTRIBUTION WIDTH 14.1 % (11.5-14.5); WHITE BLOOD COUNT 7.6 x10^3/uL (4.0-11.0)
[2021-07-12] MEDS ORDERED: CONTRAST GIVEN. MC PRN (13:45)
[2021-07-12] MEDS ORDERED: IOHEXOL 300 MG/ML 100ML VIAL. IV ONE (13:45)
[2021-07-12 13:47] LABS: PROTHROMBIN TIME PATIENT 13.1 SEC (11.7-14.0)
--- NOTE | 2021-07-12 13:50 | PHYS DOC ---
Past Medical History Past Medical History: A-Fib, Bronchitis, CAD, CHF, COPD, Diabetes-Type II, High Cholesterol, Hypertension, HI Past Surgical History: Other Additional Past Surgical Histo: CARDIAC STENTS Smoking Status: Former Smoker Alcohol Use: None Drug Use: None General Adult HPI: HPI: Patient is a 71-year-old male that presents today via [facility] with right-sided weakness, aphasia, inability to follow commands, and forced ga ze. Per EMS patient last known well was 12:40 PM, EMS his Accu-Chek was 161, unable to get history from patient due to speech issues. Spoke to son and he spoke to his [id number] with whom who called 911 he states around 1245 today he was speaking to his [id number] and all of a sudden he got a blank stare on his face and started not acting right son-in-law then called 911 and patient was transported to [facility]. Family did state the patient gets medications filled at [facility] at [address] and state they were contacted and states that the last prescription they had for Plavix was filled in 2019 Review of Systems: Review of Systems: Patient unable to communicate any concerns or complaints at this time due to aphasia Heart Score: C/O Chest Pain: N/A Risk Factors: Risk Factors: DM, Current or recent (<one month) smoker, HTN, HLP, family history of CAD, obesity. Risk Scores: Score 0 - 3: 2.5% MACE over next 6 weeks - Discharge Home Score 4 - 6: 20.3% MACE over next 6 weeks - Admit for Clinical Observation Score 7 - 10: 72.7% MACE over next 6 weeks - Early Invasive Strategies Allergies: Allergies: Allergies Coded Allergies Type Severity Reaction Last Updated Verified No Known Drug Allergies 06/01/14 No Physical Exam: PE: Constitutional: Well developed, well nourished, no acute distress, non-toxic appearance. [] HENT: Normocephalic, atraumatic, bilateral external ears normal, oropharynx moist, no oral exudates, nose normal. [] Eyes: PERRLA, EOMI, conjunctiva normal, no discharge. Neck: Normal range of motion, no tenderness, supple, no stridor. [] Cardiovascular: window shade cutter shows atrial fibrillation no murmurs noted, peripheral pulses 1+ Lungs & Thorax: Bilateral breath sounds clear to auscultation, diminished bases Abdomen: Bowel sounds normal, soft, no tenderness, no masses, no pulsatile masses. [] Skin: Warm, dry, no erythema, no rash. [] Back: No tenderness, no CVA tenderness. [] Extremities: Healing wounds noted over left leg sampson area no signs and symptoms of infection Neurologic: Patient is somnolent, does not follow commands, aphasia noted, has limited movement to no movement on the right side, sensory intact, does have neglect on the right as well. Psychologic: Unable to assess psych at this time due to patient's inability to follow commands or speak at this time Current Patient Data: Labs: Laboratory Tests Test 07/12/21 13:20 White Blood Count 7.6 x10^3/uL Red Blood Count 5.77 x10^6/uL Hemoglobin 15.9 g/dL Hematocrit 47.6 % Mean Corpuscular Volume 83 fL Mean Corpuscular Hemoglobin 28 pg Mean Corpuscular Hemoglobin Concent 33 g/dL Red Cell Distribution Width 14.1 % Platelet Count 248 x10^3/uL Neutrophils (%) (Auto) 60 % Lymphocytes (%) (Auto) 24 % Monocytes (%) (Auto) 10 % Eosinophils (%) (Auto) 5 % Basophils (%) (Auto) 1 % Neutrophils # (Auto) 4.5 x10^3/uL Lymphocytes # (Auto) 1.8 x10^3/uL Monocytes # (Auto) 0.8 x10^3/uL Eosinophils # (Auto) 0.4 x10^3/uL Basophils # (Auto) 0.1 x10^3/uL Prothrombin Time 13.1 SEC Prothromb Time International Ratio 1.0 Activated Partial Thromboplast Time 27 SEC Sodium Level 136 mmol/L Potassium Level 4.4 mmol/L Chloride Level 100 mmol/L Carbon Dioxide Level 29 mmol/L Anion Gap 7 Blood Urea Nitrogen 21 mg/dL Creatinine 1.0 mg/dL Estimated GFR (Cockcroft-Gault) 73.7 Glucose Level 205 mg/dL Calcium Level 8.4 mg/dL Troponin I High Sensitivity 56 ng/L Current Medications Medications (Trade) Dose Ordered Sig/Jenny Route PRN Reason Start Time Stop Time Status Last Admin Dose Admin Iohexol (Omnipaque 300 Mg/ml) 75 ml 1X ONCE IV 07/12/21 13:45 11/13/21 13:46 DC 07/12/21 13:40 Info (CONTRAST GIVEN -- Rx MONITORING) 1 each PRN DAILY PRN MC SEE COMMENTS 07/12/21 13:45 07/14/21 13:44 EKG: EKG: EKG done at 1342 [place] [address] Pandya no STEMI noted to show sinus rhythm with PACs [] Radiology/Procedures: Radiology/Procedures: REASON: Possible CVA PROCEDURE: CT CODE STROKE HEAD WO CT HEAD INDICATION: Code stroke COMPARISON: None Available. Exposure: One or more of the following individualized dose reduction techniques were utilized for this examination: 1. Automated exposure control 2. Adjustment of the mA and/or kV according to patient size 3. Use of iterative reconstruction technique TECHNIQUE: 5 mm contiguous axial images were obtained from the skull base to the vertex in both bone and soft tissue algorithm. FINDINGS: There is hyperdensity appearing left middle cerebral artery, question hyperdense MCA sign. Mild bilateral periventricular white matter hypodensities likely chronic small vessel ischemic disease. Small hypodensity identified in the right frontal lobe likely old infarct. No evidence of acute intracranial hemorrhage. No extra-axial fluid collections. No mass effect or midline shift. Ventricular size is appropriate. Basal cisterns are patent. No fractures identified.Sánchez-white differentiation is preserved.Globes and orbits are within normal limits. Paranasal sinuses and mastoid air cells are clear. IMPRESSION: Hyperdensity appearing left middle cerebral artery, question hyperdense MCA sign. Thrombus is not excluded. Recommend CT angiogram. FOR INTERNAL CODING PURPOSES Critical result: Findings discussed with ER physician at 07/12/2021 1:33 PM. RESULT CODE: (C) [] REASON: Possible CVA PROCEDURE: CT ANGIOGRAPHY HEAD AND NECK Examination: CT angiography head and neck with IV contrast COMPARISON:CT head same day exam History: Cerebrovascular accident, code stroke TECHNIQUE: Axial CT angiographic images of the head and neck were performed with IV contrast. Coronal and sagittal 3-D MIP reformats are performed. 3-D Volumetric reformats of the carotids and jena of Mackey were performed. Exposure: One or more of the following individualized dose reduction techniques were utilized for this examination: 1. Automated exposure control 2. Adjustment of the mA and/or kV according to patient size 3. Use of iterative reconstruction technique Stenosis calculations for CT, MR, and conventional angiography are based upon measurements of the distal ICA diameter in accordance with the NASCET methodology. Stenosis calculations for carotid ultrasound studies are derived from validated velocity criteria which are known to correlate with the NASCET methodology. FINDINGS: The origin of the great vessels from the arch of the aorta grossly appears unremarkable. The bilateral common carotid arteries are patent. There is complete occlusion/thrombus of the left internal carotid artery at its origin is no contrast or flow the left internal carotid artery throughout the neck and inthe intracranial region. There is some contrast identified in the M1 segment on the left crossflow from anterior communicating artery. The bilateral anterior cerebral arteries are patent. There is occlusion/thrombus of the left middle cerebral artery. The right internal carotid arteries. The right middle cerebral artery is patent. The bilateral vertebral arteries, basilar artery is patent. There is origin of the right posterior cerebral artery. Moderate degenerative changes cervical spine.. Moderate bilateral lung emphysematous changes. 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 There is some contrast identified in the M1 segment on the left crossflow from anterior communicating artery. There is occlusion/thrombus of the left middle cerebral artery. FOR INTERNAL CODING PURPOSES Critical result: Findings discussed with ER physician at 07/12/2021 1:40 PM. RESULT CODE: (C) PROCEDURE: PORTABLE CHEST 1V EXAMINATION: XR CHEST 1V CLINICAL HISTORY: Altered level of consciousness EXAM DATE/TIME: 07/12/2021 1:21 PM COMPARISON: 04/06/2017 FINDINGS: Lines, Tubes, and Devices: None. Cardiomediastinal Silhouette: Normal heart size. Aortic atherosclerotic calcification. Lungs and Pleura: Nonspecific mild diffuse interstitial prominence, similar to prior study and likely chronic. No evidence of focal airspace consolidation or pleural effusion. Bones and Soft Tissues: Degenerative changes in the thoracic spine. IMPRESSION: No evidence of acute cardiopulmonary abnormality or significant interval change. Electronically signed by: Johnny Montoya DO (07/12/2021 1:49 PM) [id number] Course & Med Decision Making: Course & Med Decision Making Pertinent Labs and Imaging studies reviewed. (See chart for details) 1329 radiologist called back states no head bleed does have a dense area in the left MCA we will proceed with a CTA at this time. 1346 radiologist called back with CTA results that shows a left internal carotid artery occlusion, [facility] was contacted spoke to Dr. Erickson, he states to go ahead and start TPA here at [facility] and transfer the patient for further higher level of neurological care at the [facility]. Spoke to patient's family son who is at the bedside and informed him that the patient will be transferred to the [facility]. 1420 current blood pressure is 142/92, heart rate 103. Spoke to family with plan of care and they are agreeable Elieser Disclaimer: Elieser Disclaimer: This electronic medical record was generated, in whole or in part, using a voice recognition dictation system. Departure Departure Impression: Primary Impression: Acute ischemic cerebrovascular accident (CVA) involving internal carotid artery territory Disposition: 02 SHORT TERM HOSPITAL Condition: CRITICAL Referrals: Angélica GILES MD (PCP) DONNIE MANZO APRN Jul 12, 2021 13:50
--- NOTE | 2021-07-12 13:55 | RAD ---
Examination: CT angiography head and neck with IV contrast COMPARISON:CT head same day exam History: Cerebrovascular accident, code stroke TECHNIQUE: Axial CT angiographic images of the head and neck were performed with IV contrast. Coronal and sagittal 3-D MIP reformats are performed. 3-D Volumetric reformats of the carotids and grindstone of Mackey were performed. Exposure: One or more of the following individualized dose reduction techniques were utilized for thi s examination: 1. Automated exposure control 2. Adjustment of the mA and/or kV according to patient size 3. Use of iterative reconstruction technique Stenosis calculations for CT, MR, and conventional angiography are based upon measurements of the dis fran ICA diameter in accordance with the NASCET methodology. Stenosis calculations for carotid ultraso und studies are derived from validated velocity criteria which are known to correlate with the NASCET methodology. FINDINGS: The origin of the great vessels from the arch of the aorta grossly appears unremarkable. The bilatera l common carotid arteries are patent. There is complete occlusion/thrombus of the left internal carot id artery at its origin is no contrast or flow the left internal carotid artery throughout the neck a nd inthe intracranial region. There is some contrast identified in the M1 segment on the left crossfl ow from anterior communicating artery. The bilateral anterior cerebral arteries are patent. There is occlusion/thrombus of the left middle cerebral artery. The right internal carotid arteries. The right middle cerebral artery is patent. The bilateral vertebral arteries, basilar artery is patent. There is origin of the right front edger ior cerebral artery. Moderate degenerative changes cervical spine.. Moderate bilateral lung emphysema tous changes. IMPRESSION: Complete occlusion/thrombus of the left internal carotid artery at its origin with occlusion/no contr ast or flow the left internal carotid artery throughout the neck and the intracranial region. There i s some contrast identified in the M1 segment on the left crossflow from anterior communicating artery . There is occlusion/thrombus of the left middle cerebral artery. FOR INTERNAL CODING PURPOSES Critical result: Findings discussed with ER physician at 07/12/2021 1:40 PM. RESULT CODE: (C) Electronically signed by: Adolph Dalal MD (07/12/2021 1:52 PM) [id number]
[2021-07-12] MEDS ORDERED: IV NORMAL SALINE 100ML 100 ML IV ONE (14:15)
[2021-07-12] MEDS ORDERED: LABETALOL 20 MG/4 ML DISP.SYRIN. IVP PRN (14:15)
[2021-07-12] MEDS ORDERED: ALTEPLASE 62 MG IV ONE (14:15)
[2021-07-12] MEDS ORDERED: ALTEPLASE 6.9 MG IV ONE (14:15)
[2021-07-12 14:20] VITALS: BP 142/92
--- NOTE | 2021-07-12 16:43 | EKG ---
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
== END 2021-07-12 14:30 | disposition short-term general hospital (02) ==
LOC: ER 13:11
DX: I63.9 Cerebral infarction, unspecified (principal); I11.0 Hypertensive heart disease with heart failure; I50.9 Heart failure, unspecified; I48.91 Unspecified atrial fibrillation; I25.10 Atherosclerotic heart disease of native coronary artery without angina pectoris; J44.9 Chronic obstructive pulmonary disease, unspecified; E78.00 Pure hypercholesterolemia, unspecified; I25.2 Old myocardial infarction; Z87.891 Personal history of nicotine dependence; Z95.5 Presence of coronary angioplasty implant and graft
CPT/HCPCS: 36415; 37195; 70450; 70496; 70498; 71045; 80048; 84484; 85025; 85610; 85730; 93005; 99285; J2997; Q9967